=== PATIENT | female | born 1940 | race Caucasian/White ===

== ENCOUNTER 2017-03-24 06:25 | Day surgery (SDC) | payer MEDICARE ==
[2017-03-24] MEDS ORDERED: fentaNYL 100 MCG/2 ML SDV ONE (06:58)
[2017-03-24] MEDS ORDERED: Propofol 200 MG/20 ML SDV ONE ×2 (06:58→08:16)
[2017-03-24] MEDS ORDERED: Dextrose 5%-Lactated Ringers 1,000 ML IV SCH (07:00)
[2017-03-24] MEDS ORDERED: Glycopyrrolate 0.2 MG/ML 2 ML SYRINGE IVPUSH ONE (07:30)
[2017-03-24] MEDS ORDERED: Midazolam 1 MG/ML 2 ML SDV ONE (07:51)
[2017-03-24] MEDS ORDERED: Triamcinolone Acetonide 40 MG/ML 1 ML MDV INJECT PRN (09:46)
[2017-03-24] MEDS ORDERED: Lidocaine 1% 20 ML MDV INJECT ONE (09:46)
[2017-03-24] MEDS ORDERED: Ropivacaine 0.5% 5 MG/ML 30 ML SDV INJECT ONE (09:47)
[2017-03-24] MEDS ORDERED: Barium Sulfate 105% w/v Susp 1,900 ML Bottle PO ONE ×2 (10:34→10:51)
[2017-03-24 11:37] VITALS: BP 159/85
--- NOTE | 2017-03-24 11:55 | CR ---
Barium Enema Comp HISTORY: Incomplete colonoscopy. COMPARISON: None FINDINGS: Very redundant colon. No evidence for persistent narrowing. No extrinsic mass effect seen. Small amount of retained stool. Right colon was difficult to opacify with barium this is partially opacified however normal in caliber. Impression: Very redundant colon with small amounts of retained stool. No persistent narrowing or acute abnormal ity seen.
--- NOTE | 2017-03-26 11:02 | OR ---
DATE OF PROCEDURE: 03/24/2017 PREOPERATIVE DIAGNOSES: 1. Upper abdominal pain. 2. History of colon carcinoma status post right colectomy. POSTOPERATIVE DIAGNOSES: 1. Normal upper GI endoscopic exam status post jejunoileal bypass. 2. Normal colonic examination to 40 cm with the colon being extremely tortuous preventing further advancement of the colonoscope beyond 40 cm. OPERATIVE PROCEDURE: Esophagogastroduodenoscopy with; 1. Biopsies of gastric pouch for CLOtest (02342). 2. Flexible colonoscopy, incomplete (18345). ANESTHESIA: IV sedation. INDICATION FOR PROCEDURE: This is a 76-year-old female presenting with some upper abdominal discomfort. She also has a history of right colon carcinoma, and the plan is to proceed with an upper GI endoscopy to investigate those upper GI symptoms, as well as flexible colonoscopy with biopsies and/or polypectomies as indicated. Potential risks including bleeding and perforation were discussed, and the patient wishes to proceed. DETAILS OF PROCEDURE: The patient was taken to the operating room and placed in a left lateral decubitus position. IV sedation was administered, after which the upper GI endoscope was passed orally through the length of the esophagus, then in the stomach with retroflexion view of the fundus, and thereafter through the pyloric channel and into the proximal duodenum. Findings included normal hypopharynx, larynx, upper esophageal sphincter, and esophageal body at the EG junction. No significant hiatal hernia or inflammation were noted. The stomach itself was unremarkable with there being no significant redness. The pyloric channel and proximal duodenum were unremarkable. Beyond that, the patient had the duodenal to ileal anastomosis, which prevented any bile from getting into the more proximal GI tract. At this point, biopsies were obtained from the antrum to establish the patient's H. pylori status. Minimal bleeding from the biopsy site was seen, and the upper GI endoscope was then removed. Attention was then taken to the colonoscopy. Initial digital rectal exam was performed and was unremarkable. Colonoscope was then passed to roughly 40 cm. An extended amount of time was made to try to advance the scope beyond that, but it appeared to be too tortuous at that point to safely proceed. To that level, no abnormalities were noted, and the prep was fairly good. The scope was then withdrawn, and the procedure then concluded. The patient was taken to the recovery room in a satisfactory condition. Subsequent to this, the patient underwent a colon x-ray which showed extremely tortuous and elongated colon, but otherwise no specific additional pathology seen. The plan will be to see the patient back next Monday. She is, at this point, having severe problems with the constipation, having tried multiple agents over time and would be interested in surgical correction of this by means of a subtotal colectomy. We will obtain an abdominal x-ray at time of the appointment next Monday, i.e. in 5 days. This will help confirm, I think, that the patient has a slow transit constipation depending on how much of the colon x-ray contrast remains in the colon. Bairon Wilson MD /[id number]
== END 2017-03-24 12:00 | disposition home or self-care (01) ==
LOC: JP.SDS 06:25
PROVIDERS: ATTEND Surgery
DX: R10.10 Upper abdominal pain, unspecified (principal); Z98.84 Bariatric surgery status; K59.00 Constipation, unspecified; Q43.8 Other specified congenital malformations of intestine; Z85.038 Personal history of other malignant neoplasm of large intestine; M54.81 Occipital neuralgia; G43.909 Migraine, unspecified, not intractable, without status migrainosus; F33.9 Major depressive disorder, recurrent, unspecified; F11.20 Opioid dependence, uncomplicated; T40.2X5A Adverse effect of other opioids, initial encounter; E03.9 Hypothyroidism, unspecified; Z90.49 Acquired absence of other specified parts of digestive tract; M79.7 Fibromyalgia; M81.0 Age-related osteoporosis without current pathological fracture; Z85.820 Personal history of malignant melanoma of skin; R41.3 Other amnesia; R40.0 Somnolence; N20.0 Calculus of kidney; K80.20 Calculus of gallbladder without cholecystitis without obstruction; I51.89 Other ill-defined heart diseases; Z79.52 Long term (current) use of systemic steroids; Z79.899 Other long term (current) drug therapy
CPT/HCPCS: 43239; 45330; 74270; 87081; J2250; J2704; J3010; J7042

== ENCOUNTER 2017-08-22 09:40 | Inpatient (IN) | payer MEDICARE ==
[2017-08-24] MEDS ORDERED: cefOXitin 2 GM in Premix Bag 1 BAG IV ONE (10:15)
[2017-08-24] MEDS ORDERED: Albuterol/Ipratropium 3.0-0.5 MG/3 ML Neb Soln NEB ONE (10:15)
[2017-08-24] MEDS ORDERED: Gabapentin 100 MG Cap PO ONE (10:15)
[2017-08-24] MEDS ORDERED: Acetaminophen 500 MG Tab PO ONE (10:15)
[2017-08-24] MEDS ORDERED: Celecoxib 200 MG Cap PO ONE (10:15)
[2017-08-24] MEDS ORDERED: Dextrose 5%-Lactated Ringers 1,000 ML IV SCH (10:30)
[2017-08-24] MEDS ORDERED: Ropivacaine 33 ML, Dexamethasone 8 MG, EPINEPHrine 0.4 MG, Sodium Chloride 0.9% 44.6 ML NERVRT SCH ×4 (10:30)
[2017-08-24] MEDS ORDERED: methylPREDNISolone Sodium Succinate 125 MG/2 ML SDV IVPUSH ONE (10:40)
[2017-08-24] MEDS ORDERED: Naloxone 0.4 MG/ML SDV IVPUSH PRN ×2 (11:10→11:11)
[2017-08-24] MEDS ORDERED: HYDROmorphone/Normal Saline 15 MG/30 ML PCA IV PRN (11:11)
[2017-08-24] MEDS ORDERED: Ondansetron 4 MG/2 ML SDV ONE (11:14)
[2017-08-24] MEDS ORDERED: Dexamethasone 4 MG/ML SDV ONE (11:14)
[2017-08-24] MEDS ORDERED: Glycopyrrolate 0.2 MG/ML 5 ML MDV ONE (11:14)
[2017-08-24] MEDS ORDERED: Rocuronium 50 MG/5 ML Vial ONE (11:14)
[2017-08-24] MEDS ORDERED: Neostigmine Methylsulfate 1 MG/ML 5 ML Syringe ONE (11:14)
[2017-08-24] MEDS ORDERED: Propofol 200 MG/20 ML SDV ONE (11:14)
[2017-08-24] MEDS ORDERED: Succinylcholine 200 MG/10 ML MDV ONE (11:14)
[2017-08-24] MEDS ORDERED: fentaNYL 250 MCG/5 ML SDV ONE (11:14)
[2017-08-24] MEDS ORDERED: Meropenem 500 MG SDV ONE (11:50)
[2017-08-24] MEDS ORDERED: Bupivacaine 0.5%/EPINEPHrine 1:200,000 50 ML MDV ONE (11:51)
[2017-08-24] MEDS ORDERED: Sodium Chloride 0.9% 10 ML ONE (11:55)
[2017-08-24] MEDS ORDERED: fentaNYL 100 MCG/2 ML SDV ONE (11:55)
[2017-08-24] MEDS ORDERED: Naloxone 0.4 MG/ML SDV IV PRN (15:51)
[2017-08-24] MEDS ORDERED: diphenhydrAMINE 50 MG/ML SDV IVPUSH PRN (15:51)
[2017-08-24] MEDS ORDERED: Ondansetron 4 MG/2 ML SDV IVPUSH PRN (15:51)
[2017-08-24] MEDS: Pantoprazole 40 MG Vial IV SCH (17:11)
[2017-08-24] MEDS ORDERED: Coagulation Factor VIIa Recombinant (per MCG) 2 MG Vial IVPUSH ONE (17:30)
[2017-08-24] MEDS: Dextrose 5%-Lactated Ringers 1,000 ML IV SCH (17:31)
[2017-08-24] MEDS: methylPREDNISolone Sodium Succinate 125 MG/2 ML SDV IVPUSH SCH (18:03)
[2017-08-24] MEDS: cefOXitin 2 GM in Sodium Chloride 0.9% 50 ML IV SCH ×2 (18:04→23:40)
[2017-08-24] MEDS ORDERED: Coagulation Factor VIIa Recombinant (per MCG) 2 MG Vial IVPUSH STA (20:24)
[2017-08-24] MEDS ORDERED: Lactated Ringers 500 ML IV ONE (22:15)
[2017-08-25] MEDS ORDERED: Lactated Ringers 500 ML IV SCH (00:15)
[2017-08-25] MEDS: Dextrose 5%-Lactated Ringers 1,000 ML IV SCH ×3 (01:51→20:49)
[2017-08-25] MEDS: cefOXitin 2 GM in Sodium Chloride 0.9% 50 ML IV SCH ×2 (05:25→11:53)
[2017-08-25] MEDS: methylPREDNISolone Sodium Succinate 125 MG/2 ML SDV IVPUSH SCH (05:35)
[2017-08-25] MEDS: fentaNYL 2,500 MCG in Sodium Chloride 0.9% 200 ML EPIDUR SCH ×2 (07:50→12:05)
[2017-08-25] MEDS ORDERED: CLIMARA TOP SCH (09:00)
[2017-08-25] MEDS: Magnesium Sulfate/Water 2 GM in Premix Bag 1 BAG IV SCH ×3 (09:20→21:27)
[2017-08-25] MEDS ORDERED: Meperidine PF 50 MG/ML Syringe IM ONE ×2 (14:45→15:00)
[2017-08-25] MEDS ORDERED: hydrOXYzine HCl 100 MG/2 ML SDV IM ONE (14:45)
[2017-08-25] MEDS: Pantoprazole 40 MG Vial IV SCH (16:09)
[2017-08-25] MEDS: methylPREDNISolone Sodium Succinate 40 MG/1 ML SDV IVPUSH SCH (18:20)
[2017-08-26] MEDS: Magnesium Sulfate/Water 2 GM in Premix Bag 1 BAG IV SCH ×4 (03:49→21:03)
[2017-08-26] MEDS: Dextrose 5%-Lactated Ringers 1,000 ML IV SCH ×2 (04:57→13:33)
[2017-08-26] MEDS: methylPREDNISolone Sodium Succinate 40 MG/1 ML SDV IVPUSH SCH ×2 (06:10→17:33)
[2017-08-26] MEDS ORDERED: Ropivacaine 33 ML, Dexamethasone 8 MG, EPINEPHrine 0.4 MG, Sodium Chloride 0.9% 44.6 ML NERVRT SCH ×4 (07:00)
[2017-08-26] MEDS ORDERED: Bupivacaine 0.5% 50 ML MDV ONE (07:01)
[2017-08-26] MEDS ORDERED: Lidocaine 1% with EPINEPHrine 1:100,000 50 ML MDV ONE (07:01)
[2017-08-26] MEDS ORDERED: Meropenem 500 MG SDV ONE (07:01)
[2017-08-26] MEDS ORDERED: fentaNYL 100 MCG/2 ML SDV ONE (07:09)
[2017-08-26] MEDS ORDERED: Midazolam 1 MG/ML 2 ML SDV ONE (07:09)
[2017-08-26] MEDS ORDERED: Propofol 200 MG/20 ML SDV ONE (07:09)
[2017-08-26] MEDS: [UNRECOGNIZED DRUG - OTHER] TOP SCH (09:39)
[2017-08-26] MEDS: Furosemide 20 MG/2 ML VIAL IV SCH ×2 (12:30→19:53)
[2017-08-26] MEDS: Acetaminophen 325 MG Tab PO SCH ×2 (12:32→17:33)
[2017-08-26] MEDS: Celecoxib 200 MG Cap PO SCH (12:33)
[2017-08-26] MEDS: Bisacodyl 5 MG Tab PO SCH ×2 (12:33→20:00)
[2017-08-26] MEDS: Sennosides 8.6 MG Tab PO SCH ×2 (12:33→20:00)
[2017-08-26] MEDS: fentaNYL 2,500 MCG in Sodium Chloride 0.9% 200 ML EPIDUR SCH (13:34)
[2017-08-26] MEDS: Pantoprazole 40 MG Vial IV SCH (16:33)
[2017-08-27] MEDS: Acetaminophen 325 MG Tab PO SCH (00:15)
[2017-08-27] MEDS: Dextrose 5%-Lactated Ringers 1,000 ML IV SCH (01:57)
[2017-08-27] MEDS: Magnesium Sulfate/Water 2 GM in Premix Bag 1 BAG IV SCH ×4 (02:59→22:03)
[2017-08-27] MEDS: Acetaminophen/HYDROcodone 325-5 MG Tab PO PRN ×4 (05:25→19:41)
[2017-08-27] MEDS: methylPREDNISolone Sodium Succinate 40 MG/1 ML SDV IVPUSH SCH ×2 (05:50→19:57)
[2017-08-27] MEDS: Celecoxib 200 MG Cap PO SCH (08:40)
[2017-08-27] MEDS: Furosemide 20 MG/2 ML VIAL IV SCH ×2 (08:49→19:57)
[2017-08-27] MEDS: [UNRECOGNIZED DRUG - OTHER] TOP SCH (09:49)
[2017-08-27] MEDS: POTASSIUM PHOSPHATES IV SCH ×6 (09:50→15:49)
[2017-08-27] MEDS: WATER IV SCH ×6 (09:50→15:49)
[2017-08-27] MEDS: Sennosides 8.6 MG Tab PO SCH ×3 (09:50→21:01)
[2017-08-27] MEDS: DEXTROSE IV SCH ×6 (09:50→15:49)
[2017-08-27] MEDS: Pantoprazole 40 MG Tab.CR PO SCH (19:57)
[2017-08-28] MEDS: Acetaminophen/HYDROcodone 325-5 MG Tab PO PRN ×5 (00:20→21:32)
[2017-08-28] MEDS: Magnesium Sulfate/Water 2 GM in Premix Bag 1 BAG IV SCH (04:52)
[2017-08-28] MEDS: methylPREDNISolone Sodium Succinate 40 MG/1 ML SDV IVPUSH SCH (05:06)
[2017-08-28] MEDS: [UNRECOGNIZED DRUG - OTHER] TOP SCH (08:03)
[2017-08-28] MEDS: Celecoxib 200 MG Cap PO SCH (08:03)
[2017-08-28] MEDS: Sennosides 8.6 MG Tab PO SCH ×3 (08:04→20:08)
--- NOTE | 2017-08-28 08:29 | OR ---
DATE OF PROCEDURE: 08/26/2017 PREOPERATIVE DIAGNOSIS: Open abdominal incision. POSTOPERATIVE DIAGNOSIS: Open abdominal incision. PROCEDURE: Delayed primary closure of open abdominal incision. ANESTHESIA: IV sedation. INDICATION FOR PROCEDURE: The patient is status post subtotal colectomy, at which time the skin and subcutaneous tissue were felt to be at high risk for wound infection if they were closed primarily. Given this, the incisions were left open for a planned delayed primary closure at this time. Potential risks including bleeding and infection were reviewed, and the patient wishes to proceed. DETAILS OF PROCEDURE: The patient was taken to the operating room and placed in a supine position. After IV sedation was administered, using a continuous ultrasound, transverse abdominis plane blocks were placed bilaterally with the standard solution. These were placed more or less between the edge of ribs and anterior superior iliac spine on each side, providing coverage over the mid and lower abdomen where the incision was primarily located. Following this, the dressing was taken down. The incision was reinspected. The wound was then prepped and draped, anesthetized with 1% lidocaine mixed with Marcaine and irrigated with meropenem-containing saline solution. The incision was then closed with a deeper layer of 3-0 Vicryl stitch and a subdermal 4-0 Vicryl stitch and gurpreet for the skin. A 10- Portuguese Kendell-Pyle drain was then placed through the stab wound beneath the incision that was sutured with some 3-0 Vicryl stitch and dressing applied. The patient was taken to the recovery room in satisfactory condition. Bairon Wilson MD /[id number]
--- NOTE | 2017-08-28 08:38 | PN ---
DATE OF SERVICE: 08/27/2017 The patient has been afebrile with stable vital signs. No major problems were noted overnight. However, a little bit confused, did pull out her epidural catheter. She is on oral pain medication today, moving her bowels and we will begin a full-liquid diet, clamping the NG-tube for 5 hours and clamping for 1-hour [id number]. Labs show elevated BNP. We will give her some IV Lasix today and also low potassium and phosphate and those will be supplemented as well. Otherwise, maximize activity with pulmonary toilet. Bairon Wilson MD /[id number]
--- NOTE | 2017-08-28 11:20 | OR ---
DATE OF PROCEDURE: 08/24/2017 PREOPERATIVE DIAGNOSES: 1. Severe constipation, refractory to medical management associated with extreme megacolon. 2. Chronic cholecystitis and cholelithiasis. OPERATIVE PROCEDURE: Exploratory laparotomy with lysis of adhesions and, 1. Total abdominal colectomy with a small bowel to rectal anastomosis (03453). 2. Cholecystectomy (10687). 3. Placement of tube gastrostomy (708523). 4. Placement of Vicryl mesh to displace viscera from pelvic and abdominal wall to limit recurrent adhesion formation (37060). ANESTHESIA: General. ELECTRIC FORK OPERATOR: Lindsay Sales PA-C. INDICATIONS FOR PROCEDURE: This is a 76-year-old female presenting with a progressively worsening severe constipation/obstipation. Despite ongoing medical management, the patient at the time of an incomplete colonoscopy, recently had a colon x-ray which showed a massively tortuous and dilated colon diffusely. The patient was initially treated with some additional medical management such as Amitiza which transiently did help somewhat, but now presented with worsening symptoms that have been refractory to medical management. There is no evidence of any distal obstructing lesion as the recent colonoscopy did get well up into the sigmoid colon. The plan is to proceed with a subtotal colectomy with a small-bowel to rectal anastomosis. The patient is status post a jejunoileal bypass in the past, and she is aware that this could result in significant diarrhea or frequent loose bowel movements. We will plan to proceed with a tube gastrostomy as this procedure quite often results in a prolonged ileus due to the extensive retroperitoneal dissection. The patient also appears to have a symptomatic cholelithiasis and a cholecystectomy was undertaken as well. Potential risks of the procedure including bleeding, infection, leaks from various GI tract closures, possibility of problems with frequent loose bowel movements or disturbance in her nutritional status, along with possibility of cardiopulmonary or septic or hemorrhagic complications leading to were discussed, and the patient wishes to proceed. DETAILS OF THE PROCEDURE: The patient was taken to the operating room, placed in a supine position. After general endotracheal anesthesia was induced, the Palmer catheter was inserted. The abdomen was prepped and draped, and the patient had a nasogastric tube placed. A midline incision which eventually extended from roughly a handsbreadths below the xiphoid to a handsbreadth above the pubis was made and carried down through the full-thickness of the abdominal wall. Upon entering the peritoneal cavity, general exploration was undertaken. The patient was noted to have a very tiny caliber small bowel and the area was then bypassed by the jejunoileal bypass. The remaining small bowel was quite thickened and hypertrophied in appearance, consistent with a long-standing jejunoileal bypass status. The gallbladder was distended and was subsequently noted to contain some small stones. At that point, the decision was made to proceed with the total abdominal colectomy with a small bowel to the rectum anastomosis as planned. Initially, the cholecystectomy was performed. The cystohepatic triangle was identified and the cystic duct and cystic artery were then each individually isolated and then with a single stapler divided with BRITT vascular load and the remaining attachments of the gallbladder were then taken off with electrocautery and the specimen delivered from the field as noted above and was noted to contain some small black stones. At this point, the small bowel was immediately flushed with the previous ileocolic anastomosis, was divided, and the mid rectum, and also divided both with BRITT staplers. The peritoneal reflection of the descending colon as well as the attachments along the splenic flexure were then freed up with a combination of blunt and cautery dissection and the omentum was then divided off the transverse colon with Harmonic scalpel and cautery. At this point, the mesentery of the remainder of the abdominal colon was divided with a combination of vascular and mesenteric staple loads and the specimen consisting of the total abdominal colon and upper rectum was then delivered from the field. The small bowel to the rectal anastomosis was then accomplished with a [id number] enteroenterostomy with 2 internal firings of the Endo-BRITT navas loads, the common openings were then closed with purple load, the angles anastomosed, and mesenteric defect approximated with some 3-0 Vicryl stitch. This anastomosis was also reinforced with some fibrin sealant. The underlying mesenteric defect was confirmed to be adequately closed. At this point, attention was taken to the tube gastrostomy. Along the mid greater curvature of the stomach, a pursestring stitch of 3-0 Vicryl stitch was placed and in the center of that pursestring, a gastrotomy was placed. Through a stab wound in the left subcostal area, an 18-Bur[place]ian Palmer catheter was pulled through the abdominal wall and then placed into the lumen of the stomach and inflated with 10 mL of saline. The pursestring stitch was then tied up and this stitch was then continued initially to fix the gastrostomy up to the abdominal wall. Four additional sutures the stomach on the edge of the gastrostomy to the abdominal wall with Vicryl stitch were also then placed. At this point, no further problems noted. The abdomen was irrigated with antibiotic-containing saline solution. To limit recurrent adhesion formation, a 12-inch Vicryl mesh was then placed in the depths of the pelvis, up along the pelvic sidewall, and up against the abdominal wall. The midline fascia was then approximated with a #2 Vicryl stitch. The skin and subcutaneous tissue were felt to be at high risk for wound infection if a primary closure was undertaken. These were therefore packed open and a dressing applied. The patient was taken to the recovery room in satisfactory condition. [employer] assistant principal Lindsay Sales played an essential role in assisting in this case, helping to position the patient, retract structures as needed, as well as suturing and cutting sutures when indicated. Her presence improved the patient's safety and decreased operative time. Bairon Wilson MD /[id number]
[2017-08-28] MEDS ORDERED: Furosemide 20 MG/2 ML VIAL IV ONE (12:00)
[2017-08-28] MEDS ORDERED: Potassium Chloride 20 MEQ Tab.ER PO ONE (12:00)
[2017-08-28] MEDS: Pantoprazole 40 MG Tab.CR PO SCH (17:18)
[2017-08-28] MEDS ORDERED: predniSONE 5 MG Tab PO SCH (21:00)
[2017-08-29] MEDS: Acetaminophen/HYDROcodone 325-5 MG Tab PO PRN ×2 (04:41→10:04)
[2017-08-29 07:34] VITALS: BP 130/80
--- NOTE | 2017-08-29 08:20 | DISCH ---
ADMISSION DIAGNOSES: 1. Chronic cholecystitis and cholelithiasis. 2. Severe constipation, refractory to medical management. 3. SP Jamal-en-Y gastric bypass surgery, unspecified surgical malabsorption. 4. B12 deficiency. 5. Occipital neuralgia "treatment agreement.". 6. Minor migraine headache without aura. 7. Major depression disorder. 8. Hypothyroidism stage I colon cancer, resected. 9. Elevated carcinoembryonic antigen. 10.Pituitary adenoma. 11.Fibromyalgia. 12.Osteoporosis. 13.Degenerative joint disease. 14.History of melanoma. 15.Vitamin D deficiency. 16.Memory change. 17.Daytime somnolence. 18.Nephrolithiasis. 19.Mild diastolic dysfunction. 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 21.Copper deficiency. 22.Zinc deficiency. 23.Vitamin B complex deficiency. DISCHARGE DIAGNOSES: Exploratory laparotomy with lysis of adhesion, total colectomy with small bowel to rectal anastomosis, cholecystectomy, placement of tube gastrostomy, and placement of Vicryl mesh to displace small bowel for severe constipation refractory to medical management associated with extreme megacolon and chronic cholecystitis and cholelithiasis. Date of surgery, 08/24/2017, Bairon Wilson MD. Delayed primary closure for open incision on 08/26/2017. HISTORY: Monica Garza is a 76-year-old female with severe constipation, gallstones, and chronic cholecystitis. After preoperative evaluation and discussion of the possible risks and possible complications, she wished to proceed with surgical procedure. HOSPITAL COURSE: 1. Monica Garza had her surgery on 08/24/2017. She had no operative complications. On postop day #1, her IV was discontinued and she signed a consent for delayed primary closure for open incision on 08/26/2017. 2. On postop day 2, she had her delayed primary closure. On 08/27/2017, she was started on a full liquid diet. She had a loose bowel movement, it was checked for C diff. Gastrostomy tube was clamped. She received K-Phos as well as Lasix. On 08/28/2017, she had Lasix along with potassium and home care was set up. On 08/29/2017, the epidural was discontinued, her Palmer was discontinued. She was started on a full liquid diet. She received Lasix 20 mg IV with potassium 40 mEq and K-Phos 30 millimole. She tolerated that well. She was able to be discharged to home on 08/29/2017 with no complications. Vital signs were stable. Pain was well managed. Activity was good. PHYSICAL EXAMINATION: GENERAL: Monica Garza is a 76-year-old female. HEENT: Height is 5 feet 9 inches, weight is 138 pounds, BMI is 20, TPR 96.8, 97, 12, blood pressure 144/92. HEENT: Negative. NECK: Supple. HEART: Regular rate and rhythm. LUNGS: Clear. ABDOMEN: Dressing is dry and intact. Abdominal binder is on. EXTREMITIES: Without peripheral edema. DISPOSITION: Discharged to home with home health care. FOLLOWUP APPOINTMENT: On 09/01/2017 at 9:30 a.m. NEW PRESCRIPTIONS: 1. Covina 5/325 mg 1-2 oral q.4 hours p.r.n. pain, #40. 2. Celebrex 200 mg p.o. daily, #14. 3. She is to resume her home medications, vitamin D3 1000 international units daily. 4. Vitamin B12 1 mL IM every 3 weeks. 5. Vitamin B12 1000 mcg sublingual daily. 6. Vitamin D2 50,000 international units for 2 weeks. 7. Climara 0.06 mg topical weekly. 8. Ferrous sulfate 1.5 teaspoons oral daily. 9. Gabapentin 100 mg oral twice daily. 10.Levothyroxine 112 mcg oral daily. 11.Amitiza 24 mcg oral twice daily. 12.Magnesium oxide 400 mg oral daily. 13.Flintstones multivitamin chewable 1 twice daily. 14.Omeprazole 40 mg daily. 15.MiraLAX 17 g oral twice daily. 16.Potassium chloride 15 mL oral daily. 17.Promethazine 25 mg rectal every 6 hours p.r.n. nausea. 18.Vitamin B1 100 mg oral daily. 19.Zomig ZMT 2.5 mg oral as directed p.r.n. headache. 20.Prednisone 7.5 mg at bedtime. 21.Discontinue taking the hydrocodone/ibuprofen 7.5/200 while on the Covina. DISCHARGE DIET: Usual diet as tolerated. Drink 8 to 10 glasses of water a day. ACTIVITY: No lifting greater than 10 pounds for 6 weeks[address] Driving, do not drive while on pain medication. Shower/bathing, may shower. Notify provider if any fever, increased pain, nausea, or vomiting. Wound incision care, keep site clean and dry. Wear abdominal binder for 6 weeks and then as tolerated. SPECIAL INSTRUCTIONS: 1. Strip, empty, measure, and record IRENE drain 4 times a day and bring record of drainage to clinic appointment. 2. Keep area around gastrostomy tube clean and dry. 3. Use incentive spirometer 10 times every hour while awake for 2 weeks.
[2017-08-29] MEDS: Celecoxib 200 MG Cap PO SCH (08:47)
[2017-08-29] MEDS: Sennosides 8.6 MG Tab PO SCH (08:47)
[2017-08-29] MEDS: [UNRECOGNIZED DRUG - OTHER] TOP SCH (08:48)
--- NOTE | 2017-08-29 15:21 | PN ---
DATE OF SERVICE: 08/26/2017 The patient has been afebrile with stable vital signs. She had a brief period where the pain control was somewhat marginal yesterday, but this is improved and we will continue the epidural catheter after the closure for another day or two. She is going to have a somewhat more prolonged ileus. We will begin some bowel stimulation today with Dulcolax oral tablets and Senna Plus on a scheduled basis. We will also begin Tylenol and Celebrex today in anticipation of getting the epidural catheter out either tomorrow or on Monday. Her labs show no major problems other than the BNP has gone from relatively low number to around 1100. Given this, we will back down on the IV rate and give her some Lasix this morning and repeat a dose this evening as well. We will leave the epidural catheter in place. We will leave the Palmer catheter as she is likely to have problems with urinary retention; otherwise, delayed primary closure will be undertaken today. Potential risks of procedure including bleeding and infection were reviewed, and the patient wishes to proceed. Bairon Wilson MD /[id number]
--- NOTE | 2017-08-30 07:57 | PN ---
DATE OF SERVICE: 08/25/2017 The patient has been afebrile with stable vital signs, blood pressure is running a little bit lower, but I think it might be related to the epidural catheter. There is quite a bit of IRENE output, and there is some concern regarding bleeding. She did receive activated factor VII, but hemoglobin only dropped from 13 to 12, from preoperative levels to this morning. Clinically, she looks stable. Plan will be to maximize activity and work with pulmonary toilet. Leave the IV rate running faster until later in the day. Urine output is satisfactory. Magnesium is low, that will be supplemented, and we will move her Solu-Medrol dose down to 40 mg q.12 hours and add a Climara patch. Plan will be to proceed with a delayed primary closure of the abdominal incision tomorrow. We may or may not turn off the epidural catheter at that time. We will plan to repeat the tap block as well. Bairon Wilson MD /[id number]
--- NOTE | 2017-08-30 09:54 | PN ---
DATE OF SERVICE: 08/28/2017 The patient is not entirely steady enough, I think, to go home at this point, but probably will be ready tomorrow. Palmer catheter will come out. We will give her some additional Lasix and potassium today, IRENE teaching, set up home care, and probably home tomorrow. Bairon Wilson MD /[id number]
== END 2017-08-29 11:25 | disposition home health service (06) | DRG 327 ==
LOC: JP.SDS 08-24 09:16 → JP.MS 08-24 09:16 → EDSTATUS 08-24 12:00 → JP.2SS 08-24 15:00 → JP.MS 08-27 16:18
PROVIDERS: ADMIT Surgery; ATTEND Surgery
PROC: 0DTE0ZZ Resection of Large Intestine, Open Approach (ICD-10-PCS; principal; 2017-08-24)
PROC: 0DH60UZ Insertion of Feeding Device into Stomach, Open Approach (ICD-10-PCS; 2017-08-24)
PROC: 0FT40ZZ Resection of Gallbladder, Open Approach (ICD-10-PCS; 2017-08-24)
PROC: 3E0M05Z Introduction of Adhesion Barrier into Peritoneal Cavity, Open Approach (ICD-10-PCS; 2017-08-24)
PROC: 0WQF0ZZ Repair Abdominal Wall, Open Approach (ICD-10-PCS; 2017-08-26)
DX: K59.09 Other constipation (principal); K59.39 Other megacolon; K80.10 Calculus of gallbladder with chronic cholecystitis without obstruction; K91.2 Postsurgical malabsorption, not elsewhere classified; F19.20 Other psychoactive substance dependence, uncomplicated; Z48.1 Encounter for planned postprocedural wound closure; Z98.84 Bariatric surgery status; E83.42 Hypomagnesemia; Z85.038 Personal history of other malignant neoplasm of large intestine; E53.8 Deficiency of other specified B group vitamins; E55.9 Vitamin D deficiency, unspecified; M81.0 Age-related osteoporosis without current pathological fracture; G43.909 Migraine, unspecified, not intractable, without status migrainosus; Z85.820 Personal history of malignant melanoma of skin; Z98.0 Intestinal bypass and anastomosis status; Z79.52 Long term (current) use of systemic steroids; F32.9 Major depressive disorder, single episode, unspecified; Z79.891 Long term (current) use of opiate analgesic; E06.3 Autoimmune thyroiditis; E60 Dietary zinc deficiency
CPT/HCPCS: 36415; 80048; 80053; 83735; 83880; 84100; 84443; 85025; 85027; 86850; 86900; 86901; 87493; 88304; 88307; 94762; A9270-GY; C1781; C9113; J0131; J0171; J0330; J0694; J1100; J1940; J2175; J2185; J2250; J2405; J2704; J2710; J2795; J2920; J2930; J3010; J3410; J3475; J3490; J7042; J7050; J7060; J7189; J7620

== ENCOUNTER 2017-10-04 12:15 | Emergency (ER) | payer MEDICARE ==
[2017-10-04] MEDS ORDERED: Sodium Chloride 0.9% 10 ML Syringe FLUSH PRN (13:26)
--- NOTE | 2017-10-04 14:46 | CR ---
Chest 2V HISTORY: Cough, shortness of breath. COMPARISON: None FINDINGS: Hyperinflation. Cardiac size and pulmonary vessels are normal. Slightly rotated film. No fo janusz infiltrates or effusions. Impression: COPD changes. No acute infiltrates.
[2017-10-04] MEDS ORDERED: Albuterol 0.083% 2.5 MG/3 ML Neb Soln NEB ONE (15:06)
[2017-10-04] MEDS: Sodium Chloride 0.9% 1,000 ML IV SCH ×2 (15:38→17:02)
[2017-10-04] MEDS ORDERED: Sodium Chloride 0.9% 1,000 ML IV ONE (17:16)
--- NOTE | 2017-10-04 18:31 | EDM.PDOC ---
ED HPI GENERAL MEDICAL PROBLEM - General Chief Complaint: Respiratory Problem Stated Complaint: MEDICAL VIA AMBULANCE Time Seen by Provider: 10/04/17 13:03 Source of Information: Reports: Patient History Limitations: Reports: No Limitations - History of Present Illness INITIAL COMMENTS - FREE TEXT/NARRATIVE: This patient comes in with a cough productive of green sputum which is been going on since yesterday. She thinks she is dehydrated. She had a recent small bowel obstruction and now has short gut so she has chronic diarrhea. She thinks she is probably dehydrated. She has been nauseated but not vomiting. She denies any fever she feels chills and occasional sweats. She did not get a flu shot this year. Her records show a history of COPD but the patient says she's never been treated for it - Related Data Allergies Allergy/AdvReac Type Severity Reaction Status Date / Time food Allergy Cannot Uncoded 10/04/17 12:42 Remember Home Meds: Home Meds Cholecalciferol (Vitamin D3) [Vitamin D3] 1,000 unit PO DAILY 03/24/15 [History] Cyanocobalamin (Vitamin B-12) [Cyanocobalamin Injection] 1 ml IM .[id number] [History] Ergocalciferol (Vitamin D2) [Vitamin D2] 50,000 unit PO .2XWEEK 03/24/15 [ History] Estradiol [Climara] 0.06 mg TOP WEEKLY 03/24/15 [History] Ferrous Sulfate 1.5 tsp PO DAILY 03/24/15 [History] Levothyroxine 112 mcg PO DAILY 03/24/15 [History] Multivitamin [Flintstones] 1 tab PO BID 03/24/15 [History] Multivitamin/Ferrous Gluconate [Multi-Delyn with Iron Liquid] 20 ml PO DAILY [History] Omeprazole 40 mg PO DAILY 03/24/15 [History] Potassium Chloride 15 ml PO DAILY 03/24/15 [History] Thiamine [Vitamin B-1] 100 mg PO DAILY 03/24/15 [History] ZOLMitriptan [Zomig ZMT] 5 mg PO ASDIRECTED PRN 03/24/15 [History] Cyanocobalamin (Vitamin B-12) [Vitamin B-12] 1,000 mcg SL DAILY 03/22/17 [ History] Promethazine [Phenadoz] 25 mg RECTAL Q6H PRN 03/22/17 [History] predniSONE [Prednisone] 7.5 mg PO BEDTIME 03/22/17 [History] Acetaminophen/HYDROcodone [[place] 325-5 MG] 1 - 2 tab PO Q4H PRN #40 tablet 08/29 [Rx] Celecoxib [CeleBREX] 200 mg PO DAILY #14 cap 08/29/17 [Rx] Diphenoxylate HCl/Atropine [Lomotil Tablet] 1 each PO ASDIRECTED 10/04/17 [ History] HYDROcodone/Ibuprofen [Vicoprofen] 1 tab PO Q8H PRN 10/04/17 [History] Prochlorperazine [Compazine] 1 tab PO Q6HR PRN 10/04/17 [History] Past Medical History HEENT History: Reports: Cataract, Hard of Hearing, Impaired Vision, Other (See Below) Other HEENT History: tinnitus left ear, menneires disease Cardiovascular History: Reports: Afib, [place] Respiratory History: Reports: Other (See Below) Other Respiratory History: unknown lung problems for albuterol Pt stopped Gastrointestinal History: Reports: Celiac Disease, Cholelithiasis, Chronic Constipation, Chronic Diarrhea, Colon Polyp, GERD, Hemorrhoids, Hepatitis, Irritable Bowel Syndrome, Other (See Below) Other Gastrointestinal History: internal rectal restriction Genitourinary History: Reports: Renal Calculus 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: Musculoskeletal History: Reports: Back Pain, Chronic, Fracture, Fibromyalgia, Neck Pain, Chronic, Osteoarthritis Other Musculoskeletal History: degenerative disc disease, fractured left small finger, fractured right foot, chronic neck and shoulder pain Neurological History: Reports: Concussion, Head Trauma, Migraines, Vertigo, Other (See Below) Other Neuro History: Mineres Psychiatric History: Reports: Anxiety, Depression, PTSD, Other (See Below) Other Psychiatric History: 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 Endocrine/Metabolic History: Reports: Hypothyroidism, Osteopenia, Vitamin D Deficiency, Other (See Below) Other Endocrine/Metabolic History: Isidro disease Hematologic History: Reports: Anemia, B12 Deficiency, Folic Acid, Iron Deficiency Immunologic History: Reports: None Oncologic (Cancer) History: Reports: Colon, Malignant Melanoma Dermatologic History: Reports: Melanoma Other Dermatologic History: skin CA 2005 - Infectious Disease History Infectious Disease History: Reports: Chicken Pox, Hepatitis non A,B,C, Measles, Mumps, Shingles - Past Surgical History HEENT Surgical History: Reports: Cataract Surgery, Tonsillectomy, Other (See Below) Other HEENT Surgeries/Procedures: eye lenses implants GI Surgical History: Reports: Appendectomy, Bariatric Procedure, Colon, Colonoscopy, EGD, Other (See Below) Other GI Surgeries/Procedures: surgical procedure x 5 to remove excess lining of rectum, hemorrhoidectomy, panniculectomy, colon resection Female Surgical History: Reports: Breast Biopsy, Cystoscopy, Hysterectomy, Kidney stone extraction, Tubal Ligation, Other (See Below) Other Female Surgeries/Procedures: bilat breast cysts removed Neurological Surgical History: Reports: C-Spine, Other (See Below) Other Neurological Surgeries/Procedures: fusion C5-C6, Chiari I surgery plate and screws Musculoskeletal Surgical History: Reports: Carpal Tunnel Dermatological Surgical History: Reports: Skin Biopsy Social & Family History - Family History Family Medical History: Noncontributory - Tobacco Use Smoking Status *Q: Never Smoker Years of Tobacco use: 15 Used Tobacco, but Quit: Yes Month Tobacco Last Used: 09/2004 Second Hand Smoke Exposure: No - Caffeine Use Caffeine Use: Reports: Coffee - Recreational Drug Use Recreational Drug Use: No ED ROS GENERAL - Review of Systems Review Of Systems: See Below Constitutional: Reports: Chills, Malaise, Weakness. Denies: Fever HEENT: Reports: No Symptoms Respiratory: Reports: Cough, Sputum (Green) Cardiovascular: Reports: No Symptoms Endocrine: Reports: No Symptoms GI/Abdominal: Reports: Diarrhea : Reports: No Symptoms Musculoskeletal: Reports: No Symptoms Skin: Reports: No Symptoms Neurological: Reports: No Symptoms Psychiatric: Reports: No Symptoms ED EXAM, GENERAL - Physical Exam Exam: See Below Exam Limited By: No Limitations General Appearance: Alert, Mild Distress, Thin Eye Exam: Bilateral Eye: Normal Inspection Ears: Normal External Exam Throat/Mouth: Normal Inspection Head: Atraumatic Neck: Normal Inspection Respiratory/Chest: Lungs Clear, Other GI/Abdominal: Non-Tender Back Exam: Normal Inspection Extremities: Normal Inspection Neurological: Alert, Oriented Psychiatric: Normal Affect Skin Exam: Warm, Dry Course - Vital Signs Last Recorded V/S: Last Vital Signs Temp 36.0 C 10/04/17 12:40 Pulse 89 10/04/17 15:45 Resp 16 10/04/17 15:45 BP 127/66 10/04/17 15:45 Pulse Ox 96 10/04/17 15:45 - Orders/Labs/Meds Orders: Active Orders 24 hr Category Date Time Status EKG Documentation Completion [RC] ASDIRECTED Care 10/04/17 13:26 Active RT Aerosol Therapy [RC] ASDIRECTED Care 10/04/17 15:07 Active CULTURE RESPIRATORY + SMEAR [RM] Stat Lab 10/04/17 16:36 Results Sodium Chloride 0.9% [Normal Saline] 1,000 ml Med 10/04/17 15:15 Active IV ASDIRECTED Sodium Chloride 0.9% [Saline Flush] Med 10/04/17 13:26 Active 10 ml FLUSH ASDIRECTED PRN Saline Lock Insert [OM.PC] Urgent Oth 10/04/17 13:25 Ordered EKG 12 Lead [EK] Urgent Ther 10/04/17 13:25 Ordered Medication Orders Sodium Chloride (Normal Saline) 1,000 mls @ 999 mls/hr IV ASDIRECTED PREET Last Admin: 10/04/17 17:02 Dose: 999 mls/hr Infusion: 10/04/17 16:39 Dose: 999 mls/hr Admin: 10/04/17 15:38 Dose: 999 mls/hr Sodium Chloride (Saline Flush) 10 ml FLUSH ASDIRECTED PRN PRN Reason: Keep Vein Open Last Admin: 10/04/17 13:46 Dose: 10 ml Labs: Laboratory Tests 10/04/17 10/04/17 10/04/17 Range/Units 13:39 13:39 13:39 WBC 10.6 (4.5-11.0) K/uL RBC 4.35 (3.30-5.50) M/uL Hgb 13.3 (12.0-15.0) g/dL Hct 41.4 (36.0-48.0) % MCV 95 (80-98) fL MCH 31 (27-31) pg MCHC 32 (32-36) % Plt Count 462 H (150-400) K/uL Neut % (Auto) 62 (36-66) % Lymph % (Auto) 29 (24-44) % [place] % (Auto) 9 H (2-6) % Eos % (Auto) 0 L (2-4) % Baso % (Auto) 0 (0-1) % Sodium 136 L (140-148) mmol/L Potassium 3.4 L (3.6-5.2) mmol/L Chloride 97 L (100-108) mmol/L Carbon Dioxide 32 (21-32) mmol/L Anion Gap 10.4 (5.0-14.0) mmol/L BUN 9 (7-18) mg/dL Creatinine 0.8 (0.6-1.0) mg/dL Est Cr Clr Drug Dosing 54.39 mL/min Estimated GFR (MDRD) > 60 (>60) Glucose 115 H (74-106) mg/dL Calcium 9.0 (8.5-10.1) mg/dL Total Bilirubin 0.3 (0.2-1.0) mg/dL AST 27 (15-37) U/L ALT 28 (12-78) U/L Alkaline Phosphatase 93 (46-116) U/L Troponin I < 0.017 (0.000-0.056) ng/mL NT-Pro-B Natriuret Pep 244 (5-450) pg/mL Total Protein 6.4 (6.4-8.2) g/dL Albumin 2.9 L (3.4-5.0) g/dL Globulin 3.5 (2.3-3.5) g/dL Albumin/Globulin Ratio 0.8 L (1.2-2.2) Meds: Medications Generic Name Dose Route Start Last Admin Trade Name Freq PRN Reason Stop Dose Admin Sodium Chloride 1,000 mls @ 999 mls/hr 10/04/17 15:15 10/04/17 17:02 Normal Saline IV 999 mls/hr ASDIRECTED PREET Administration Sodium Chloride 10 ml 10/04/17 13:26 10/04/17 13:46 Saline Flush FLUSH 10 ml ASDIRECTED PRN Administration Keep Vein Open Discontinued Medications Generic Name Dose Route Start Last Admin Trade Name Freq PRN Reason Stop Dose Admin Albuterol 2.5 mg 10/04/17 15:06 10/04/17 15:36 Proventil Neb Soln NEB 10/04/17 15:07 2.5 mg ONETIME ONE Administration Sodium Chloride 1,000 mls @ 999 mls/hr 10/04/17 17:16 10/04/17 17:05 Normal Saline IV 10/04/17 18:16 999 mls/hr .BOLUS ONE Administration - Radiology Interpretation Free Text/Narrative:: Chest x-ray shows COPD changes - Re-Assessments/Exams Free Text/Narrative Re-Assessment/Exam: 10/04/17 18:28 Patient received IV normal saline 2 L. She said she feels much better afterwards. 10/04/17 18:28 All labs reviewed on this patient is nothing acute seen. She did receive an albuterol nebulizer treatment and it's not certain if that really helped her or not. Departure - Departure Time of Disposition: 18:29 Disposition: Home, Self-Care 01 Condition: Fair Clinical Impression: Chronic diarrhea, Dehydration, Acute bronchitis - Discharge Information Referrals: Elizabeth Thorne PA [Primary Care Provider] - Additional Instructions: Take azithromycin as directed. You'll take 2 tablets tonight and then 1 tablet daily until finished. Be sure to drink plenty of liquids. Follow-up with your doctor in a few days. Return to the ER at any time if needed - My Orders Last 24 Hours: My Active Orders 10/04/17 13:25 Saline Lock Insert [OM.PC] Urgent EKG 12 Lead [EK] Urgent 10/04/17 13:26 EKG Documentation Completion [RC] ASDIRECTED Sodium Chloride 0.9% [Saline Flush] 10 ml FLUSH ASDIRECTED PRN 10/04/17 15:07 RT Aerosol Therapy [RC] ASDIRECTED 10/04/17 15:15 Sodium Chloride 0.9% [Normal Saline] 1,000 ml IV ASDIRECTED 10/04/17 16:36 CULTURE RESPIRATORY + SMEAR [RM] Stat - Assessment/Plan Last 24 Hours: My Active Orders 10/04/17 13:25 Saline Lock Insert [OM.PC] Urgent EKG 12 Lead [EK] Urgent 10/04/17 13:26 EKG Documentation Completion [RC] ASDIRECTED Sodium Chloride 0.9% [Saline Flush] 10 ml FLUSH ASDIRECTED PRN 10/04/17 15:07 RT Aerosol Therapy [RC] ASDIRECTED 10/04/17 15:15 Sodium Chloride 0.9% [Normal Saline] 1,000 ml IV ASDIRECTED 10/04/17 16:36 CULTURE RESPIRATORY + SMEAR [RM] Stat
[2017-10-04 20:00] VITALS: BP 128/61
== END 2017-10-04 19:30 | disposition home or self-care (01) ==
LOC: JP.ED 12:15
DX: E86.0 Dehydration (principal); J20.9 Acute bronchitis, unspecified; R19.7 Diarrhea, unspecified; Z79.899 Other long term (current) drug therapy
CPT/HCPCS: 36415; 71046; 80053; 83880; 84484; 85025; 87070; 87205; 87804; 93005; 94640; 96360; 96361; 99284; J7040; J7050; 93010; J7030

== ENCOUNTER 2018-01-03 17:06 | Inpatient (IN) | payer MEDICARE ==
--- NOTE | 2018-01-03 18:24 | EDM.PDOC ---
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 sudden onset of difficulty breathing Upper Back Pain Score (Numeric/FACES): 8 - Related Data Allergies Allergy/AdvReac Type Severity Reaction Status Date / Time food Allergy Cannot Uncoded 01/03/18 17:22 Remember Home Meds: Home Meds Cholecalciferol (Vitamin D3) [Vitamin D3] 1,000 unit PO DAILY 03/24/15 [History] Cyanocobalamin (Vitamin B-12) [Cyanocobalamin Injection] 1 ml IM .[id number] [History] Ergocalciferol (Vitamin D2) [Vitamin D2] 50,000 unit PO .2XWEEK 03/24/15 [ History] Estradiol [Climara] 0.06 mg TOP WEEKLY 03/24/15 [History] Ferrous Sulfate 1.5 tsp PO DAILY 03/24/15 [History] Levothyroxine 112 mcg PO DAILY 03/24/15 [History] Multivitamin [Flintstones] 1 tab PO BID 03/24/15 [History] Multivitamin/Ferrous Gluconate [Multi-Delyn with Iron Liquid] 20 ml PO DAILY [History] Omeprazole 40 mg PO DAILY 03/24/15 [History] Potassium Chloride 15 ml PO DAILY 03/24/15 [History] Thiamine [Vitamin B-1] 100 mg PO DAILY 03/24/15 [History] ZOLMitriptan [Zomig ZMT] 5 mg PO ASDIRECTED PRN 03/24/15 [History] Cyanocobalamin (Vitamin B-12) [Vitamin B-12] 1,000 mcg SL DAILY 03/22/17 [ History] Promethazine [Phenadoz] 25 mg RECTAL Q6H PRN 03/22/17 [History] predniSONE [Prednisone] 7.5 mg PO BEDTIME 03/22/17 [History] HYDROcodone/Ibuprofen [Vicoprofen] 1 tab PO Q8H PRN 10/04/17 [History] Past Medical History HEENT History: Reports: Cataract, Hard of Hearing, Impaired Vision, Other (See Below) Other HEENT History: tinnitus left ear, menneires disease Cardiovascular History: Reports: Afib, [place] Respiratory History: Reports: Other (See Below) Other Respiratory History: unknown lung problems for albuterol Pt stopped Gastrointestinal History: Reports: Celiac Disease, Cholelithiasis, Chronic Constipation, Chronic Diarrhea, Colon Polyp, GERD, Hemorrhoids, Hepatitis, Irritable Bowel Syndrome, Other (See Below) Other Gastrointestinal History: internal rectal restriction Genitourinary History: Reports: Renal Calculus 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: Musculoskeletal History: Reports: Back Pain, Chronic, Fracture, Fibromyalgia, Neck Pain, Chronic, Osteoarthritis Other Musculoskeletal History: degenerative disc disease, fractured left small finger, fractured right foot, chronic neck and shoulder pain Neurological History: Reports: Concussion, Head Trauma, Migraines, Vertigo, Other (See Below) Other Neuro History: Mineres Psychiatric History: Reports: Anxiety, Depression, PTSD, Other (See Below) Other Psychiatric History: 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 Endocrine/Metabolic History: Reports: Hypothyroidism, Osteopenia, Vitamin D Deficiency, Other (See Below) Other Endocrine/Metabolic History: Isidro disease Hematologic History: Reports: Anemia, B12 Deficiency, Folic Acid, Iron Deficiency Immunologic History: Reports: None Oncologic (Cancer) History: Reports: Colon, Malignant Melanoma Dermatologic History: Reports: Melanoma Other Dermatologic History: skin CA 2005 - Infectious Disease History Infectious Disease History: Reports: Chicken Pox, Hepatitis non A,B,C, Measles, Mumps, Shingles - Past Surgical History HEENT Surgical History: Reports: Cataract Surgery, Tonsillectomy, Other (See Below) Other HEENT Surgeries/Procedures: eye lenses implants GI Surgical History: Reports: Appendectomy, Bariatric Procedure, Colon, Colonoscopy, EGD, Other (See Below) Other GI Surgeries/Procedures: surgical procedure x 5 to remove excess lining of rectum, hemorrhoidectomy, panniculectomy, colon resection Female Surgical History: Reports: Breast Biopsy, Cystoscopy, Hysterectomy, Kidney stone extraction, Tubal Ligation, Other (See Below) Other Female Surgeries/Procedures: bilat breast cysts removed Neurological Surgical History: Reports: C-Spine, Other (See Below) Other Neurological Surgeries/Procedures: fusion C5-C6, Chiari I surgery plate and screws Musculoskeletal Surgical History: Reports: Carpal Tunnel Dermatological Surgical History: Reports: Skin Biopsy Social & Family History - Family History Family Medical History: Noncontributory - Tobacco Use Smoking Status *Q: Never Smoker Years of Tobacco use: 15 Used Tobacco, but Quit: Yes Month/Year Tobacco Last Used: 09/2004 Second Hand Smoke Exposure: No - Caffeine Use Caffeine Use: Reports: Coffee - Recreational Drug Use Recreational Drug Use: No ED ROS GENERAL - Review of Systems Review Of Systems: See Below Constitutional: Reports: No Symptoms HEENT: Reports: No Symptoms Respiratory: Reports: Shortness of Breath. Denies: Cough, Sputum Cardiovascular: Reports: Dyspnea on Exertion. Denies: Chest Pain GI/Abdominal: Reports: No Symptoms : Reports: No Symptoms ED EXAM, GENERAL - Physical Exam Exam: See Below Free Text/Narrative:: General: Female in moderate respiratory distress using accessory muscles able speak in 2-3 word sentences, alert and oriented x3 HEENT: head is atraumatic normocephalic, eyes pupils equal round reactive to light, sclera clear no conjunctivitis appreciated. Ears tympanic membranes clear and ha landmarks and light reflex are present bilaterally canals are clear. Nose no septal deviation, nares are clear, no blood present. Mouth mucosa is moist and pink no erythema or exudate noted in soft palate, tongue is midline uvula is midline , dentition is intact. Neck: Supple no thyromegaly no tracheal deviation. Nodes: Cervical nodes subclavicular nodes nontender no palpable lymphadenopathy noted. Lungs: Distant breath sounds both lung cruz CV: Regular rate and rhythm S1 and S2 appreciated no murmurs rubs or gallops noted. Abdomen: Soft, nontender, no palpable masses or organomegaly appreciated, no distention no guarding bowel sounds are present, Neuro: Cranial nerves II through XII grossly intact Skin: Warm and dry, intact Extremities: No lower extremity edema appreciated . Course - Vital Signs Last Recorded V/S: Last Vital Signs Temp 97 F 01/03/18 17:19 Pulse 104 H 01/03/18 18:50 Resp 20 01/03/18 18:50 BP 161/95 H 01/03/18 18:50 Pulse Ox 96 01/03/18 18:50 - Orders/Labs/Meds Orders: Active Orders 24 hr Category Date Time Status Chest 2V [CR] Stat Exams 01/03/18 17:49 Taken Labs: Laboratory Tests 01/03/18 01/03/18 Range/Units 18:18 18:18 WBC 11.9 H (4.5-11.0) K/uL RBC 4.50 (3.30-5.50) M/uL Hgb 13.4 (12.0-15.0) g/dL Hct 43.0 (36.0-48.0) % MCV 96 (80-98) fL MCH 30 (27-31) pg MCHC 31 L (32-36) % Plt Count 357 (150-400) K/uL Neut % (Auto) 66 (36-66) % Lymph % (Auto) 23 L (24-44) % [place] % (Auto) 9 H (2-6) % Eos % (Auto) 2 (2-4) % Baso % (Auto) 0 (0-1) % Sodium 143 (140-148) mmol/L Potassium 4.7 (3.6-5.2) mmol/L Chloride 106 (100-108) mmol/L Carbon Dioxide 30 (21-32) mmol/L Anion Gap 6.6 (5.0-14.0) mmol/L BUN 14 D (7-18) mg/dL Creatinine 0.9 (0.6-1.0) mg/dL Est Cr Clr Drug Dosing 47.22 mL/min Estimated GFR (MDRD) > 60 (>60) Glucose 116 H (74-106) mg/dL Calcium 8.8 (8.5-10.1) mg/dL Total Bilirubin 0.3 (0.2-1.0) mg/dL AST 29 (15-37) U/L ALT 31 (12-78) U/L Alkaline Phosphatase 113 (46-116) U/L Total Protein 7.0 (6.4-8.2) g/dL Albumin 3.3 L (3.4-5.0) g/dL Globulin 3.7 H (2.3-3.5) g/dL Albumin/Globulin Ratio 0.9 L (1.2-2.2) Departure - Departure Time of Disposition: 19:17 Disposition: Admitted As Inpatient 67 Condition: Fair Clinical Impression: Pneumothorax on right - Discharge Information Referrals: Lindsay Sales PA-C [Primary Care Provider] - Forms: ED Department Discharge - Assessment/Plan Plan: Assessment Acuity = acute Site and laterality = pneumothorax right side complicated patient with underlying chronic obstructive pulmonary disease after recently undergoing| thoracic trigger point injections Etiology = suspicious for complication of medical procedure Manifestations = dyspnea Location of injury = Home Lab values = CBC, CMP unremarkable chest x-ray reveals a large pneumothorax on the right side Plan Called discussed case Dr. Ko who kindly agreed to come in the same care the patient in the emergency department for chest tube patient in admission This note was dictated using [employer] voice recognition software please call with any questions on syntax or jenny."
[2018-01-03] MEDS ORDERED: fentaNYL 100 MCG/2 ML SDV IVPUSH ONE (19:22)
[2018-01-03] MEDS ORDERED: Sodium Chloride 0.9% 1,000 ML IV SCH (19:45)
[2018-01-03] MEDS ORDERED: Lidocaine 1% with EPINEPHrine 1:100,000 50 ML MDV INJECT STA (19:46)
[2018-01-03] MEDS ORDERED: Zolpidem 5 MG Tab PO PRN (21:13)
[2018-01-03] MEDS ORDERED: LORazepam 2 MG/ML SDV IV PRN (21:13)
[2018-01-03] MEDS ORDERED: Albuterol/Ipratropium 3.0-0.5 MG/3 ML Neb Soln NEB PRN (21:13)
[2018-01-03] MEDS ORDERED: Naloxone 0.4 MG/ML SDV IVPUSH PRN (21:13)
[2018-01-03] MEDS ORDERED: Albuterol 0.083% 2.5 MG/3 ML Neb Soln NEB PRN (21:13)
[2018-01-03] MEDS ORDERED: Ondansetron 4 MG Tab.DIS PO PRN (21:13)
[2018-01-03] MEDS ORDERED: Melatonin 3 MG Tab PO PRN (21:13)
[2018-01-03] MEDS ORDERED: Docusate Sodium 100 MG Cap PO PRN (21:13)
[2018-01-03] MEDS ORDERED: Ondansetron 4 MG/2 ML SDV IV PRN (21:13)
[2018-01-03] MEDS: predniSONE 5 MG Tab PO SCH (21:41)
[2018-01-03] MEDS: HYDROmorphone/Normal Saline 15 MG/30 ML PCA IV PRN (21:46)
--- NOTE | 2018-01-03 22:44 | PCM.HP ---
H&P History of Present Illness - General Admit Problem/Dx: Admission Diagnosis/Problem Admission Diagnosis/Problem Pneumothorax on right Source of Information: Patient, Provider, RN History Limitations: Reports: No Limitations - History of Present Illness Initial Comments - Free Text/Narative: 77-year-old female presents emergency department today with sudden onset of shortness of breath, she does have a history of severe COPD underwent trigger point injections thoracic lumbar today approximately 2 hours prior while sitting in front of computers sudden onset of difficulty breathing. Imaging, chest x-ray reveals a right pneumothorax. Surgeon called, Dr. Maciel arrived immediately in the emergency room for chest tube insertion. Plan to admit to hospital for further care and treatment. Onset of Symptoms: Reports: Sudden Duration of Symptoms: Reports: Hour(s): Location: Reports: Chest Quality: Reports: Other (Severe shortness of breath) Severity: Severe Improves with: Reports: None Worsens with: Reports: Breathing Context: Reports: Other Associated Symptoms: Reports: Shortness of Breath Upper Back Pain Score (Numeric/FACES): 7 - Related Data Allergies/Adverse Reactions: Allergies Allergy/AdvReac Type Severity Reaction Status Date / Time food Allergy Cannot Uncoded 01/03/18 17:22 Remember Home Medications: Home Meds Cholecalciferol (Vitamin D3) [Vitamin D3] 1,000 unit PO DAILY 03/24/15 [History] Cyanocobalamin (Vitamin B-12) [Cyanocobalamin Injection] 1 ml IM .[id number] [History] Ergocalciferol (Vitamin D2) [Vitamin D2] 50,000 unit PO .2XWEEK 03/24/15 [ History] Estradiol [Climara] 0.06 mg TOP WEEKLY 03/24/15 [History] Ferrous Sulfate 1.5 tsp PO DAILY 03/24/15 [History] Levothyroxine 112 mcg PO DAILY 03/24/15 [History] Multivitamin [Flintstones] 1 tab PO BID 03/24/15 [History] Multivitamin/Ferrous Gluconate [Multi-Delyn with Iron Liquid] 20 ml PO DAILY [History] Omeprazole 40 mg PO DAILY 03/24/15 [History] Potassium Chloride 15 ml PO DAILY 03/24/15 [History] Thiamine [Vitamin B-1] 100 mg PO DAILY 03/24/15 [History] ZOLMitriptan [Zomig ZMT] 5 mg PO ASDIRECTED PRN 03/24/15 [History] Cyanocobalamin (Vitamin B-12) [Vitamin B-12] 1,000 mcg SL DAILY 03/22/17 [ History] Promethazine [Phenadoz] 25 mg RECTAL Q6H PRN 03/22/17 [History] predniSONE [Prednisone] 7.5 mg PO BEDTIME 03/22/17 [History] HYDROcodone/Ibuprofen [Vicoprofen] 1 tab PO Q8H PRN 10/04/17 [History] Past Medical History HEENT History: Reports: Cataract, Hard of Hearing, Impaired Vision, Other (See Below) Other HEENT History: tinnitus left ear, menneires disease Cardiovascular History: Reports: Afib, [place] Respiratory History: Reports: Other (See Below) Other Respiratory History: unknown lung problems for albuterol Pt stopped Gastrointestinal History: Reports: Celiac Disease, Chronic Diarrhea, Colon Polyp , GERD, Hemorrhoids, Hepatitis, Other (See Below) Other Gastrointestinal History: internal rectal restriction Genitourinary History: Reports: Renal Calculus DIRECTOR FIXED INCOME History: Reports: Musculoskeletal History: Reports: Back Pain, Chronic, Fracture, Fibromyalgia, Neck Pain, Chronic, Osteoarthritis Other Musculoskeletal History: degenerative disc disease, fractured left small finger, fractured right foot, chronic neck and shoulder pain Neurological History: Reports: Concussion, Head Trauma, Migraines, Vertigo, Other (See Below) Other Neuro History: Mineres Psychiatric History: Reports: Anxiety, Depression, PTSD, Other (See Below) Other Psychiatric History: 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 Endocrine/Metabolic History: Reports: Hypothyroidism, Osteopenia, Vitamin D Deficiency, Other (See Below) Other Endocrine/Metabolic History: Isidro disease Hematologic History: Reports: Anemia, B12 Deficiency, Folic Acid, Iron Deficiency Immunologic History: Reports: None Oncologic (Cancer) History: Reports: Colon, Malignant Melanoma Dermatologic History: Reports: Melanoma Other Dermatologic History: skin CA 2005 - Infectious Disease History Infectious Disease History: Reports: Chicken Pox, Hepatitis non A,B,C, Measles, Mumps, Shingles - Past Surgical History HEENT Surgical History: Reports: Cataract Surgery, Tonsillectomy, Other (See Below) Other HEENT Surgeries/Procedures: eye lenses implants GI Surgical History: Reports: Appendectomy, Bariatric Procedure, Colon, Colonoscopy, EGD, Other (See Below) Other GI Surgeries/Procedures: surgical procedure x 5 to remove excess lining of rectum, hemorrhoidectomy, panniculectomy, colon resection Female Surgical History: Reports: Breast Biopsy, Cystoscopy, Hysterectomy, Kidney stone extraction, Tubal Ligation, Other (See Below) Other Female Surgeries/Procedures: bilat breast cysts removed Neurological Surgical History: Reports: C-Spine, Other (See Below) Other Neurological Surgeries/Procedures: fusion C5-C6, Chiari I surgery plate and screws Musculoskeletal Surgical History: Reports: Carpal Tunnel Dermatological Surgical History: Reports: Skin Biopsy Social & Family History - Family History Family Medical History: Noncontributory - Tobacco Use Smoking Status *Q: Never Smoker Years of Tobacco use: 15 Used Tobacco, but Quit: Yes Month/Year Tobacco Last Used: 09/2004 Second Hand Smoke Exposure: No - Caffeine Use Caffeine Use: Reports: Coffee Caffeine Use Comment: 1 cups per day - Recreational Drug Use Recreational Drug Use: No - Living Situation & Occupation Living situation: Reports: ([facility], retired, 2 adult children, not currently involved with her children. Son lives in [place], and daughter lives in [place].) H&P Review of Systems - Review of Systems: Review Of Systems: See Below General: Reports: Other (Shortness of breath) HEENT: Reports: No Symptoms Pulmonary: Reports: Shortness of Breath, Pleuritic Chest Pain Cardiovascular: Reports: No Symptoms Gastrointestinal: Reports: No Symptoms Genitourinary: Reports: No Symptoms Musculoskeletal: Reports: Back Pain (Chronic back pain) Skin: Reports: No Symptoms Psychiatric: Reports: No Symptoms Neurological: Reports: No Symptoms Hematologic/Lymphatic: Reports: No Symptoms Immunologic: Reports: No Symptoms Exam - Exam Exam: See Below - Vital Signs Vital Signs: Last Vital Signs Temp 36.1 C 01/03/18 21:13 Pulse 104 H 01/03/18 21:13 Resp 16 01/03/18 21:13 BP 136/89 01/03/18 21:13 Pulse Ox 99 01/03/18 21:13 Weight: 56.654 kg - Exam Quality Assessment: Supplemental Oxygen General: Alert, Oriented, Cooperative, Mild Distress HEENT: PERRLA, Hearing Intact, Mucosa Moist & [place], Nares Patent, Normal Nasal Septum, Posterior Pharynx Clear, Conjunctiva Clear, EOMI, EACs Clear, TMs Clear Neck: Supple, Trachea Midline, 2 Lungs: Normal Respiratory Effort, Decreased Breath Sounds (Chest tube noted to right mid chest, surgical tape and place, red discharge noted in tubing.), Other (Breath sounds are absent in the upper lobes of the right chest chest tube is in place with adhesive surgical dressing. Left lung decreased air breath sounds but breath sounds are heard throughout the lung.) Cardiovascular: Regular Rate, Regular Rhythm, Normal S1, Normal S2 GI/Abdominal Exam: Normal Bowel Sounds, Soft, Non-Tender, Other (Multiple surgical scars noted to abdomen midline and low transverse) (Female) Exam: Deferred Rectal (Female) Exam: Deferred Back Exam: Normal Inspection, Full Range of Motion Extremities: Normal Inspection, Normal Range of Motion, Non-Tender, No Pedal Edema, Normal Capillary Refill Skin: Warm, Dry, Other (chest tube right chest) Neurological: Reflexes Equal Bilateral, Strength Equal Bilateral Neuro Extensive - Mental Status: Alert, Oriented x3, Normal Mood/Affect, Normal Cognition Neuro Extensive - Motor, Sensory, Reflexes: Normal Reflexes Psychiatric: Alert, Normal Affect, Normal Mood - Patient Data Lab Results Last 24 hrs: Laboratory Results - last 24 hr 01/03/18 01/03/18 Range/Units 18:18 18:18 WBC 11.9 H (4.5-11.0) K/uL RBC 4.50 (3.30-5.50) M/uL Hgb 13.4 (12.0-15.0) g/dL Hct 43.0 (36.0-48.0) % MCV 96 (80-98) fL MCH 30 (27-31) pg MCHC 31 L (32-36) % Plt Count 357 (150-400) K/uL Neut % (Auto) 66 (36-66) % Lymph % (Auto) 23 L (24-44) % [place] % (Auto) 9 H (2-6) % Eos % (Auto) 2 (2-4) % Baso % (Auto) 0 (0-1) % Sodium 143 (140-148) mmol/L Potassium 4.7 (3.6-5.2) mmol/L Chloride 106 (100-108) mmol/L Carbon Dioxide 30 (21-32) mmol/L Anion Gap 6.6 (5.0-14.0) mmol/L BUN 14 D (7-18) mg/dL Creatinine 0.9 (0.6-1.0) mg/dL Est Cr Clr Drug Dosing 47.22 mL/min Estimated GFR (MDRD) > 60 (>60) Glucose 116 H (74-106) mg/dL Calcium 8.8 (8.5-10.1) mg/dL Total Bilirubin 0.3 (0.2-1.0) mg/dL AST 29 (15-37) U/L ALT 31 (12-78) U/L Alkaline Phosphatase 113 (46-116) U/L Total Protein 7.0 (6.4-8.2) g/dL Albumin 3.3 L (3.4-5.0) g/dL Globulin 3.7 H (2.3-3.5) g/dL Albumin/Globulin Ratio 0.9 L (1.2-2.2) Result Diagrams: 01/03/18 18:18 01/03/18 18:18 - Problem List (1) Status post chest tube placement SNOMED Code(s): 235167677, 457079005 ICD Code: Z93.8 - OTHER ARTIFICIAL OPENING STATUS Status: Acute Priority : High Current Visit: Yes (2) Pneumothorax on right SNOMED Code(s): 465036258 ICD Code: J93.9 - PNEUMOTHORAX, UNSPECIFIED Status: Acute Priority: High Current Visit: Yes Problem List Initiated/Reviewed/Updated: Yes Orders Last 24hrs: Active Orders 24 hr Category Date Time Status Patient Status [ADT] Routine ADT 01/03/18 21:13 Active Cardiac Monitoring [RC] CONTINUOUS Care 01/03/18 21:13 Active Chest Tube Management [RC] ASDIRECTED Care 01/03/18 20:28 Active Communication Order [RC] STAT Care 01/03/18 21:13 Active Intake and Output [RC] QSHIFT Care 01/03/18 21:13 Active Notify Provider Consults [RC] ASDIRECTED Care 01/03/18 21:13 Active Notify Provider [RC] PRN Care 01/03/18 21:13 Active Oxygen Therapy [RC] CONTINUOUS Care 01/03/18 21:13 Active FOOD MANAGER Record [RC] PER UNIT ROUTINE Care 01/03/18 21:13 Active Pulse Oximetry [RC] CONTINUOUS Care 01/03/18 21:13 Active RT Aerosol Therapy [RC] ASDIRECTED Care 01/03/18 21:13 Active Up With Assistance [RC] ASDIRECTED Care 01/03/18 21:13 Active VTE/DVT Education [RC] Per Unit Routine Care 01/03/18 21:13 Active Vital Signs [RC] Q4H Care 01/03/18 21:13 Active Consult to Physician [CONS] Urgent Cons 01/03/18 21:13 Ordered Consult to Spiritual Care [CONS] Routine Cons 01/03/18 21:13 Active OT Evaluation and Treatment [CONS] Routine Cons 01/03/18 21:13 Active PT Evaluation and Treatment [CONS] Routine Cons 01/03/18 21:13 Active Respiratory Care Assess and Treatment [CONS] Routine Cons 01/03/18 21:13 Active Regular Diet [DIET] Diet 01/03/18 Dinner Active Chest 1V Frontal [CR] DAILY Exams 01/04/18 05:11 Ordered Chest 1V Frontal [CR] DAILY Exams 01/05/18 05:11 Ordered Chest 1V Frontal [CR] DAILY Exams 01/06/18 05:11 Ordered Chest 1V Frontal [CR] DAILY Exams 01/07/18 05:11 Ordered Chest 1V Frontal [CR] DAILY Exams 01/08/18 05:11 Ordered Chest 1V Frontal [CR] DAILY Exams 01/09/18 05:11 Ordered Chest 1V Frontal [CR] Stat Exams 01/03/18 19:24 Taken Chest 2V [CR] Stat Exams 01/03/18 17:49 Taken BASIC METABOLIC PANEL,BMP [CHEM] AM Lab 01/04/18 05:11 Ordered CBC WITH AUTO DIFF [HEME] AM Lab 01/04/18 05:11 Ordered Albuterol [Proventil Neb Soln] Med 01/03/18 21:13 Active 2.5 mg NEB Q4H PRN Albuterol/Ipratropium [DuoNeb 3.0-0.5 MG/3 ML] Med 01/03/18 21:13 Active 3 ml NEB QID PRN Docusate Sodium [Colace] Med 01/03/18 21:13 Active 100 mg PO BID PRN HYDROmorphone/Normal Saline [Dilaudid FOOD MANAGER 15 MG in NS Med 01/03/18 21:13 Active 30 ML] See Protocol IV ASDIRECTED PRN LORazepam [Ativan] Med 01/03/18 21:13 Active 1 mg IV Q6H PRN Lactated Ringers [Ringers, Lactated] 1,000 ml Med 01/03/18 21:13 Active IV ASDIRECTED Levothyroxine Med 01/04/18 09:00 Active 112 mcg PO DAILY Melatonin Med 01/03/18 21:13 Active 6 mg PO BEDTIME PRN Naloxone [Narcan] Med 01/03/18 21:13 Active 0.4 mg IVPUSH Q2M PRN Ondansetron [Zofran ODT] Med 01/03/18 21:13 Active 4 mg PO Q6H PRN Ondansetron [Zofran] Med 01/03/18 21:13 Active 4 mg IV Q4H PRN Pantoprazole [ProTONIX IV] Med 01/04/18 09:00 Active 40 mg IVPUSH DAILY Potassium Chloride [Potassium Chloride Solution] Med 01/04/18 09:00 Active 20 meq PO DAILY Sodium Chloride 0.9% [Normal Saline] 1,000 ml Med 01/03/18 19:45 Active IV ASDIRECTED Thiamine [Vitamin B-1] Med 01/04/18 09:00 Active 100 mg PO DAILY Zolpidem [Ambien] Med 01/03/18 21:13 Active 5 mg PO BEDTIME PRN predniSONE Med 01/03/18 21:13 Active 7.5 mg PO BEDTIME Medication Discontinuation Instructions [OM.PC] Stat Oth 01/03/18 21:13 Ordered Sequential Compression Device [OM.PC] Per Unit Routine Oth 01/03/18 21:13 Ordered Resuscitation Status Routine Resus Stat 01/03/18 20:44 Ordered Medication Orders Albuterol (Proventil Neb Soln) 2.5 mg NEB Q4H PRN PRN Reason: Shortness Of Breath/wheezing Albuterol/Ipratropium (Duoneb 3.0-0.5 Mg/3 Ml) 3 ml NEB QID PRN PRN Reason: Shortness Of Breath/wheezing Docusate Sodium (Colace) 100 mg PO BID PRN PRN Reason: Constipation Hydromorphone HCl (Dilaudid Manager [employer] 15 Mg In Ns 30 Ml) 0 mg IV ASDIRECTED PRN; Protocol PRN Reason: Pain Last Admin: 01/03/18 21:46 Dose: 15 mg Sodium Chloride (Normal Saline) 1,000 mls @ 250 mls/hr IV ASDIRECTED [facility] Last Admin: 01/03/18 19:49 Dose: 250 mls/hr Lactated Ringer's (Ringers, Lactated) 1,000 mls @ 125 mls/hr IV ASDIRECTED [facility] Levothyroxine Sodium (Levothyroxine) 112 mcg PO DAILY [facility] Lorazepam (Ativan) 1 mg IV Q6H PRN PRN Reason: Nausea/Vomiting Melatonin (Melatonin) 6 mg PO BEDTIME PRN PRN Reason: Insomnia Naloxone HCl (Narcan) 0.4 mg IVPUSH Q2M PRN PRN Reason: Respiratory Distress Ondansetron HCl (Zofran Odt) 4 mg PO Q6H PRN PRN Reason: Nausea able to take PO Ondansetron HCl (Zofran) 4 mg IV Q4H PRN PRN Reason: Nausea/Vomiting Pantoprazole Sodium (Protonix Iv) 40 mg IVPUSH DAILY [facility] Potassium Chloride (Potassium Chloride Solution) 20 meq PO DAILY [facility] Prednisone (Prednisone) 7.5 mg PO BEDTIME [facility] Last Admin: 01/03/18 21:41 Dose: Not Given Thiamine HCl (Vitamin B-1) 100 mg PO DAILY [facility] Zolpidem Tartrate (Ambien) 5 mg PO BEDTIME PRN PRN Reason: Sleep Assessment/Plan Comment:: ASSESSMENT / PLAN: Right pneumothorax with chest tube placement 77-year-old female presents emergency department today with sudden onset of shortness of breath, she does have a history of severe COPD underwent trigger point injections thoracic lumbar today approximately 2 hours prior while sitting in front of computers sudden onset of difficulty breathing Imaging, chest x-ray reveals a right pneumothorax. Surgeon called, Dr. Maciel arrived immediately in the emergency room for chest tube insertion. Plan to admit to hospital for further care and treatment. Pneumothorax right with chest tube -Admit to [address] [place] [address] for further monitoring -IV Fluids for rehydration NS at 125 mL per hour -albuterol nebulizer every 4 hours as needed for wheezing and cough -Duo neb every 6 hours as needed - FOOD MANAGER Dilaudid pump -Advise to notify nurses of any chest pain or other symptoms -And a.m. labs: CBC, BMP -Chest tube care per protocol -Consult to surgery/attending/Dr. Ko Maintenance issues -Orders home meds: On hold -Nutrition: regular diet, celiac protocol, no fat, no bladder, no spaces, no pepper -Palmer catheter not indicated at this time -DVT: SCD -PPI: IV Protonix 40mg daily -consult OT for discharge planning -consult PT for strengthening. -consult Spiritual -Consult to surgery CODE STATUS: FULL CODE Admission status: Admit to [address] [place] [address] Admission justification. This patient will be admitted for inpatient services and is medically appropriate meeting medical necessity for inpatient admission as outlined in my documentation. I reasonably expect the patient will require inpatient services that span. Time over 2 midnights. I reasonably expect this patient to be discharged or transferred within 96 hours after admission to the [facility]. Disposition; home Primary care provider: TIM Nelson Hospitalist: Dr. Yang
[2018-01-03] MEDS: Lactated Ringers 1,000 ML IV SCH (23:29)
--- NOTE | 2018-01-04 06:29 | PCM.SURGPN ---
- General Info Date of Service: 01/04/18 Date of Surgery/Procedure: 01/03/18 POD#: 1 Post-Op Diagnosis: Right pneumothorax Functional Status: Reports: Pain Controlled, Tolerating Diet, Urinating, Incentive Spirometry - Review of Systems General: Reports: No Symptoms HEENT: Reports: No Symptoms Pulmonary: Reports: No Symptoms Cardiovascular: Reports: No Symptoms Gastrointestinal: Reports: No Symptoms Genitourinary: Reports: No Symptoms Musculoskeletal: Reports: No Symptoms Skin: Reports: No Symptoms Neurological: Reports: No Symptoms Psychiatric: Reports: No Symptoms - Patient Data Vitals - Most Recent: Last Vital Signs Temp 96.3 F 01/04/18 05:06 Pulse 86 01/04/18 05:06 Resp 18 01/04/18 05:06 BP 108/63 01/04/18 05:06 Pulse Ox 91 L 01/04/18 05:06 Weight - Most Recent: 124 lb 14.4 oz I&O - Last 24 Hours: Intake & Output 01/03/18 01/03/18 01/04/18 14:59 22:59 06:59 Intake Total 240 737 Output Total 700 508 Balance -460 229 Lab Results Last 24 Hrs: Laboratory Results - last 24 hr 01/03/18 01/03/18 01/04/18 Range/Units 18:18 18:18 05:15 WBC 11.9 H 12.0 H (4.5-11.0) K/uL RBC 4.50 4.15 (3.30-5.50) M/uL Hgb 13.4 12.3 (12.0-15.0) g/dL Hct 43.0 39.9 (36.0-48.0) % MCV 96 96 (80-98) fL MCH 30 30 (27-31) pg MCHC 31 L 31 L (32-36) % Plt Count 357 332 (150-400) K/uL Neut % (Auto) 66 70 H (36-66) % Lymph % (Auto) 23 L 19 L (24-44) % [place] % (Auto) 9 H 9 H (2-6) % Eos % (Auto) 2 2 (2-4) % Baso % (Auto) 0 0 (0-1) % Sodium 143 (140-148) mmol/L Potassium 4.7 (3.6-5.2) mmol/L Chloride 106 (100-108) mmol/L Carbon Dioxide 30 (21-32) mmol/L Anion Gap 6.6 (5.0-14.0) mmol/L BUN 14 D (7-18) mg/dL Creatinine 0.9 (0.6-1.0) mg/dL Est Cr Clr Drug Dosing 47.22 mL/min Estimated GFR (MDRD) > 60 (>60) Glucose 116 H (74-106) mg/dL Calcium 8.8 (8.5-10.1) mg/dL Total Bilirubin 0.3 (0.2-1.0) mg/dL AST 29 (15-37) U/L ALT 31 (12-78) U/L Alkaline Phosphatase 113 (46-116) U/L Total Protein 7.0 (6.4-8.2) g/dL Albumin 3.3 L (3.4-5.0) g/dL Globulin 3.7 H (2.3-3.5) g/dL Albumin/Globulin Ratio 0.9 L (1.2-2.2) 01/04/18 Range/Units 05:15 WBC (4.5-11.0) K/uL RBC (3.30-5.50) M/uL Hgb (12.0-15.0) g/dL Hct (36.0-48.0) % MCV (80-98) fL MCH (27-31) pg MCHC (32-36) % Plt Count (150-400) K/uL Neut % (Auto) (36-66) % Lymph % (Auto) (24-44) % [place] % (Auto) (2-6) % Eos % (Auto) (2-4) % Baso % (Auto) (0-1) % Sodium 142 (140-148) mmol/L Potassium 4.0 (3.6-5.2) mmol/L Chloride 108 (100-108) mmol/L Carbon Dioxide 27 (21-32) mmol/L Anion Gap 6.9 (5.0-14.0) mmol/L BUN 10 (7-18) mg/dL Creatinine 0.8 (0.6-1.0) mg/dL Est Cr Clr Drug Dosing 53.51 mL/min Estimated GFR (MDRD) > 60 (>60) Glucose 126 H (74-106) mg/dL Calcium 8.5 (8.5-10.1) mg/dL Total Bilirubin (0.2-1.0) mg/dL AST (15-37) U/L ALT (12-78) U/L Alkaline Phosphatase (46-116) U/L Total Protein (6.4-8.2) g/dL Albumin (3.4-5.0) g/dL Globulin (2.3-3.5) g/dL Albumin/Globulin Ratio (1.2-2.2) Med Orders - Current: Current Medications Albuterol (Proventil Neb Soln) 2.5 mg NEB Q4H PRN PRN Reason: Shortness Of Breath/wheezing Albuterol/Ipratropium (Duoneb 3.0-0.5 Mg/3 Ml) 3 ml NEB QID PRN PRN Reason: Shortness Of Breath/wheezing Docusate Sodium (Colace) 100 mg PO BID PRN PRN Reason: Constipation Hydromorphone HCl (Dilaudid Fixed Income Analyst 15 Mg In Ns 30 Ml) 0 mg IV ASDIRECTED PRN; Protocol PRN Reason: Pain Last Admin: 01/03/18 21:46 Dose: 15 mg Sodium Chloride (Normal Saline) 1,000 mls @ 250 mls/hr IV ASDIRECTED PREET Last Admin: 01/03/18 19:49 Dose: 250 mls/hr Lactated Ringer's (Ringers, Lactated) 1,000 mls @ 125 mls/hr IV ASDIRECTED PREET Last Admin: 01/03/18 23:29 Dose: 125 mls/hr Levothyroxine Sodium (Levothyroxine) 112 mcg PO DAILY [facility] Lorazepam (Ativan) 1 mg IV Q6H PRN PRN Reason: Nausea/Vomiting Melatonin (Melatonin) 6 mg PO BEDTIME PRN PRN Reason: Insomnia Naloxone HCl (Narcan) 0.4 mg IVPUSH Q2M PRN PRN Reason: Respiratory Distress Ondansetron HCl (Zofran Odt) 4 mg PO Q6H PRN PRN Reason: Nausea able to take PO Ondansetron HCl (Zofran) 4 mg IV Q4H PRN PRN Reason: Nausea/Vomiting Pantoprazole Sodium (Protonix Iv) 40 mg IVPUSH DAILY [facility] Potassium Chloride (Potassium Chloride Solution) 20 meq PO DAILY [facility] Prednisone (Prednisone) 7.5 mg PO BEDTIME PREET Last Admin: 01/03/18 21:41 Dose: Not Given Thiamine HCl (Vitamin B-1) 100 mg PO DAILY PREET Zolpidem Tartrate (Ambien) 5 mg PO BEDTIME PRN PRN Reason: Sleep Discontinued Medications Fentanyl (Sublimaze) 50 mcg IVPUSH ONETIME ONE Stop: 01/03/18 19:23 Last Admin: 01/03/18 19:44 Dose: 50 mcg Lidocaine/Epinephrine (Xylocaine 1% With Epinephrine 1:100,000) 5 ml INJECT NOW STA Stop: 01/03/18 19:47 Last Admin: 01/03/18 19:49 Dose: 5 ml - Exam Wound/Incisions: No Drainage Quality Assessment: Supplemental Oxygen General: Alert, Oriented, Cooperative, No Acute Distress Lungs: Clear to Auscultation, Normal Respiratory Effort, Other (Distant) Cardiovascular: Regular Rate, Regular Rhythm GI/Abdominal Exam: Normal Bowel Sounds, Soft, Non-Tender Extremities: Normal Inspection Skin: Warm, Dry, Intact Neurological: No New Focal Deficit Psy/Mental Status: Alert, Normal Affect, Normal Mood - Problem List & Annotations (1) Pneumothorax on right SNOMED Code(s): 313613576 Code(s): J93.9 - PNEUMOTHORAX, UNSPECIFIED Status: Acute Priority: High Current Visit: Yes - Problem List Review Problem List Initiated/Reviewed/Updated: Yes - My Orders Last 24 Hours: Active Orders 24 hr Category Date Time Status Patient Status [ADT] Routine ADT 01/03/18 21:13 Active Cardiac Monitoring [RC] CONTINUOUS Care 01/03/18 21:13 Active Chest Tube Management [RC] ASDIRECTED Care 01/03/18 20:28 Active Chest Tube Management [RC] ASDIRECTED Care 01/04/18 06:26 Ordered Communication Order [RC] STAT Care 01/03/18 21:13 Active Intake and Output [RC] QSHIFT Care 01/03/18 21:13 Active Notify Provider Consults [RC] ASDIRECTED Care 01/03/18 21:13 Active Notify Provider [RC] PRN Care 01/03/18 21:13 Active Oxygen Therapy [RC] CONTINUOUS Care 01/03/18 21:13 Active LOCUM TENENS PSYCHIATRIST Record [RC] PER UNIT ROUTINE Care 01/03/18 21:13 Active Pulse Oximetry [RC] CONTINUOUS Care 01/03/18 21:13 Active RT Aerosol Therapy [RC] ASDIRECTED Care 01/03/18 21:13 Active Up With Assistance [RC] ASDIRECTED Care 01/03/18 21:13 Active VTE/DVT Education [RC] Per Unit Routine Care 01/03/18 21:13 Active Vital Signs [RC] Q4H Care 01/03/18 21:13 Active Consult to Physician [CONS] Urgent Cons 01/03/18 21:13 Ordered Consult to Spiritual Care [CONS] Routine Cons 01/03/18 21:13 Active OT Evaluation and Treatment [CONS] Routine Cons 01/03/18 21:13 Active PT Evaluation and Treatment [CONS] Routine Cons 01/03/18 21:13 Active Respiratory Care Assess and Treatment [CONS] Routine Cons 01/03/18 21:13 Active Regular Diet [DIET] Diet 01/03/18 Dinner Active Chest 1V Frontal [CR] DAILY Exams 01/04/18 05:11 Taken Chest 1V Frontal [CR] DAILY Exams 01/05/18 05:11 Ordered Chest 1V Frontal [CR] DAILY Exams 01/06/18 05:11 Ordered Chest 1V Frontal [CR] DAILY Exams 01/07/18 05:11 Ordered Chest 1V Frontal [CR] DAILY Exams 01/08/18 05:11 Ordered Chest 1V Frontal [CR] DAILY Exams 01/09/18 05:11 Ordered Chest 1V Frontal [CR] Stat Exams 01/03/18 19:24 Taken Chest 2V [CR] Stat Exams 01/03/18 17:49 Taken Albuterol [Proventil Neb Soln] Med 01/03/18 21:13 Active 2.5 mg NEB Q4H PRN Albuterol/Ipratropium [DuoNeb 3.0-0.5 MG/3 ML] Med 01/03/18 21:13 Active 3 ml NEB QID PRN Docusate Sodium [Colace] Med 01/03/18 21:13 Active 100 mg PO BID PRN HYDROmorphone/Normal Saline [Dilaudid LOCUM TENENS PSYCHIATRIST 15 MG in NS Med 01/03/18 21:13 Active 30 ML] See Protocol IV ASDIRECTED PRN LORazepam [Ativan] Med 01/03/18 21:13 Active 1 mg IV Q6H PRN Lactated Ringers [Ringers, Lactated] 1,000 ml Med 01/03/18 21:13 Active IV ASDIRECTED Levothyroxine Med 01/04/18 09:00 Active 112 mcg PO DAILY Melatonin Med 01/03/18 21:13 Active 6 mg PO BEDTIME PRN Naloxone [Narcan] Med 01/03/18 21:13 Active 0.4 mg IVPUSH Q2M PRN Ondansetron [Zofran ODT] Med 01/03/18 21:13 Active 4 mg PO Q6H PRN Ondansetron [Zofran] Med 01/03/18 21:13 Active 4 mg IV Q4H PRN Pantoprazole [ProTONIX IV] Med 01/04/18 09:00 Active 40 mg IVPUSH DAILY Potassium Chloride [Potassium Chloride Solution] Med 01/04/18 09:00 Active 20 meq PO DAILY Sodium Chloride 0.9% [Normal Saline] 1,000 ml Med 01/03/18 19:45 Active IV ASDIRECTED Thiamine [Vitamin B-1] Med 01/04/18 09:00 Active 100 mg PO DAILY Zolpidem [Ambien] Med 01/03/18 21:13 Active 5 mg PO BEDTIME PRN predniSONE Med 01/03/18 21:13 Active 7.5 mg PO BEDTIME Medication Discontinuation Instructions [OM.PC] Stat Oth 01/03/18 21:13 Ordered Sequential Compression Device [OM.PC] Per Unit Routine Oth 01/03/18 21:13 Ordered Resuscitation Status Routine Resus Stat 01/03/18 20:44 Ordered Medication Orders Albuterol (Proventil Neb Soln) 2.5 mg NEB Q4H PRN PRN Reason: Shortness Of Breath/wheezing Albuterol/Ipratropium (Duoneb 3.0-0.5 Mg/3 Ml) 3 ml NEB QID PRN PRN Reason: Shortness Of Breath/wheezing Docusate Sodium (Colace) 100 mg PO BID PRN PRN Reason: Constipation Hydromorphone HCl (Dilaudid Fixed Income Analyst 15 Mg In Ns 30 Ml) 0 mg IV ASDIRECTED PRN; Protocol PRN Reason: Pain Last Admin: 01/03/18 21:46 Dose: 15 mg Sodium Chloride (Normal Saline) 1,000 mls @ 250 mls/hr IV ASDIRECTED PREET Last Admin: 01/03/18 19:49 Dose: 250 mls/hr Lactated Ringer's (Ringers, Lactated) 1,000 mls @ 125 mls/hr IV ASDIRECTED [facility] Last Admin: 01/03/18 23:29 Dose: 125 mls/hr Levothyroxine Sodium (Levothyroxine) 112 mcg PO DAILY [facility] Lorazepam (Ativan) 1 mg IV Q6H PRN PRN Reason: Nausea/Vomiting Melatonin (Melatonin) 6 mg PO BEDTIME PRN PRN Reason: Insomnia Naloxone HCl (Narcan) 0.4 mg IVPUSH Q2M PRN PRN Reason: Respiratory Distress Ondansetron HCl (Zofran Odt) 4 mg PO Q6H PRN PRN Reason: Nausea able to take PO Ondansetron HCl (Zofran) 4 mg IV Q4H PRN PRN Reason: Nausea/Vomiting Pantoprazole Sodium (Protonix Iv) 40 mg IVPUSH DAILY [facility] Potassium Chloride (Potassium Chloride Solution) 20 meq PO DAILY [facility] Prednisone (Prednisone) 7.5 mg PO BEDTIME [facility] Last Admin: 01/03/18 21:41 Dose: Not Given Thiamine HCl (Vitamin B-1) 100 mg PO DAILY [facility] Zolpidem Tartrate (Ambien) 5 mg PO BEDTIME PRN PRN Reason: Sleep - Assessment Assessment (Free Text/Narrative):: CXR with right lung inflated. No air leak. - Plan Plan (Free Text/Narrative):: Chest tube to water seal.
[2018-01-04] MEDS: Lactated Ringers 1,000 ML IV SCH ×2 (07:43→11:59)
--- NOTE | 2018-01-04 08:41 | OR ---
DATE OF PROCEDURE: 01/03/2018 PREOPERATIVE DIAGNOSIS: Right pneumothorax. POSTOPERATIVE DIAGNOSIS: Right pneumothorax. PROCEDURE: Placement of a 20-Kyrgyz right chest tube. SURGEON: Hiram Ko MD. ARTS AND CRAFTS INSTRUCTOR: RASHEL Jules. ANESTHESIA: 1% lidocaine with epinephrine local. INDICATION: This 77-year-old white female, about 4 o'clock this afternoon noticed sudden onset of shortness of breath. She presented to the emergency room where a chest x-ray shows that she has a right pneumothorax. Of interest, earlier today, she had a trigger point injection in her chest, possibly this was related. I counseled her for a right chest tube placement, including risks and alternatives, and she gave her informed consent to proceed. DESCRIPTION OF PROCEDURE: Her right chest was prepped and draped in usual sterile fashion. Lidocaine 1% with epinephrine was infiltrated along the anterior axillary line at about the level of the areolar complex. An oblique incision parallel to the ribs was made and then the subcutaneous tissue was divided to course up over the tube superior to the incision. We entered the chest. A 20-Kyrgyz chest tube was obtained, it was placed up in the chest, it was anchored with 0 Ethibond suture. The tube was cut off and attached to the suction device. We placed it at 20 cm of water suction. A sterile dressing was applied. Chest x- ray shows the lung to be expanded and the tube to be in an adequate position. She tolerated the procedure well. Hiram Ko MD /[id number]
[2018-01-04] MEDS ORDERED: Pantoprazole 40 MG Vial IVPUSH SCH (09:00)
--- NOTE | 2018-01-04 09:31 | CR ---
CHEST: 2 view CLINICAL HISTORY:Shortness of breath COMPARISON:September FINDINGS: Lungs are emphysematous. There is a moderate right-sided pneumothorax. It is about 40%. Th ere is no shift of the mediastinum. Impression: Interval development of a moderate sized right pneumothorax COPD
--- NOTE | 2018-01-04 09:32 | CR ---
CHEST: Portable CLINICAL HISTORY:Pneumothorax COMPARISON:Same day FINDINGS: Right chest tube is been placed. The the right-sided pneumothorax has been significantly r educed.. IMPRESSION: Interval placement of right chest tube with reduction in pneumothorax
[2018-01-04] MEDS: Potassium Chloride 10% 20 MEQ/15 ML Soln 15 ML UD Cup PO SCH (09:37)
[2018-01-04] MEDS: Thiamine 100 MG Tab PO SCH (09:37)
[2018-01-04] MEDS: Levothyroxine 112 MCG Tab PO SCH (09:37)
--- NOTE | 2018-01-04 09:44 | CR ---
CHEST: Portable CLINICAL HISTORY:Chest tube placement COMPARISON:01/03/2018 FINDINGS: Right chest tube remains in place. There may be minimal subpulmonic pneumothorax. There is some streaky atelectasis in the right lung base.. IMPRESSION: Chest tube remains in place Possible minimal subpulmonic pneumothorax remains Right basal subsegmental atelectasis
--- NOTE | 2018-01-04 10:31 | PCM.PN ---
- General Info Date of Service: 01/04/18 Subjective Update: Ms. Garza is a 77-year-old woman who is admitted through the emergency department last night with a right pneumothorax. Chest tube was placed in the emergency department by Dr. Ko. Earlier in the afternoon she had undergone thoracic trigger point injections. She is been stable since admission with no significant air leak, chest tube has been placed to waterseal this morning. Functional Status: Reports: Tolerating Diet, Urinating - Review of Systems General: Denies: Fever, Chills Pulmonary: Reports: Pleuritic Chest Pain. Denies: Shortness of Breath, Cough, Sputum, Hemoptysis, Wheezing Cardiovascular: Reports: No Symptoms Gastrointestinal: Reports: No Symptoms - Patient Data Vitals - Most Recent: Last Vital Signs Temp 96.4 F 01/04/18 07:16 Pulse 66 01/04/18 07:16 Resp 18 01/04/18 07:16 BP 109/60 01/04/18 07:16 Pulse Ox 96 01/04/18 07:23 Weight - Most Recent: 124 lb 14.4 oz I&O - Last 24 Hours: Intake & Output 01/03/18 01/04/18 01/04/18 22:59 06:59 14:59 Intake Total 240 737 Output Total 700 508 Balance -460 229 Lab Results Last 24 Hours: Laboratory Results - last 24 hr 01/03/18 01/03/18 01/04/18 Range/Units 18:18 18:18 05:15 WBC 11.9 H 12.0 H (4.5-11.0) K/uL RBC 4.50 4.15 (3.30-5.50) M/uL Hgb 13.4 12.3 (12.0-15.0) g/dL Hct 43.0 39.9 (36.0-48.0) % MCV 96 96 (80-98) fL MCH 30 30 (27-31) pg MCHC 31 L 31 L (32-36) % Plt Count 357 332 (150-400) K/uL Neut % (Auto) 66 70 H (36-66) % Lymph % (Auto) 23 L 19 L (24-44) % [place] % (Auto) 9 H 9 H (2-6) % Eos % (Auto) 2 2 (2-4) % Baso % (Auto) 0 0 (0-1) % Sodium 143 (140-148) mmol/L Potassium 4.7 (3.6-5.2) mmol/L Chloride 106 (100-108) mmol/L Carbon Dioxide 30 (21-32) mmol/L Anion Gap 6.6 (5.0-14.0) mmol/L BUN 14 D (7-18) mg/dL Creatinine 0.9 (0.6-1.0) mg/dL Est Cr Clr Drug Dosing 47.22 mL/min Estimated GFR (MDRD) > 60 (>60) Glucose 116 H (74-106) mg/dL Calcium 8.8 (8.5-10.1) mg/dL Total Bilirubin 0.3 (0.2-1.0) mg/dL AST 29 (15-37) U/L ALT 31 (12-78) U/L Alkaline Phosphatase 113 (46-116) U/L Total Protein 7.0 (6.4-8.2) g/dL Albumin 3.3 L (3.4-5.0) g/dL Globulin 3.7 H (2.3-3.5) g/dL Albumin/Globulin Ratio 0.9 L (1.2-2.2) 01/04/18 Range/Units 05:15 WBC (4.5-11.0) K/uL RBC (3.30-5.50) M/uL Hgb (12.0-15.0) g/dL Hct (36.0-48.0) % MCV (80-98) fL MCH (27-31) pg MCHC (32-36) % Plt Count (150-400) K/uL Neut % (Auto) (36-66) % Lymph % (Auto) (24-44) % [place] % (Auto) (2-6) % Eos % (Auto) (2-4) % Baso % (Auto) (0-1) % Sodium 142 (140-148) mmol/L Potassium 4.0 (3.6-5.2) mmol/L Chloride 108 (100-108) mmol/L Carbon Dioxide 27 (21-32) mmol/L Anion Gap 6.9 (5.0-14.0) mmol/L BUN 10 (7-18) mg/dL Creatinine 0.8 (0.6-1.0) mg/dL Est Cr Clr Drug Dosing 53.51 mL/min Estimated GFR (MDRD) > 60 (>60) Glucose 126 H (74-106) mg/dL Calcium 8.5 (8.5-10.1) mg/dL Total Bilirubin (0.2-1.0) mg/dL AST (15-37) U/L ALT (12-78) U/L Alkaline Phosphatase (46-116) U/L Total Protein (6.4-8.2) g/dL Albumin (3.4-5.0) g/dL Globulin (2.3-3.5) g/dL Albumin/Globulin Ratio (1.2-2.2) Med Orders - Current: Current Medications Albuterol (Proventil Neb Soln) 2.5 mg NEB Q4H PRN PRN Reason: Shortness Of Breath/wheezing Albuterol/Ipratropium (Duoneb 3.0-0.5 Mg/3 Ml) 3 ml NEB QID PRN PRN Reason: Shortness Of Breath/wheezing Docusate Sodium (Colace) 100 mg PO BID PRN PRN Reason: Constipation Hydromorphone HCl (Dilaudid Data Processing Manager 15 Mg In Ns 30 Ml) 0 mg IV ASDIRECTED PRN; Protocol PRN Reason: Pain Last Admin: 01/03/18 21:46 Dose: 15 mg Sodium Chloride (Normal Saline) 1,000 mls @ 250 mls/hr IV ASDIRECTED PREET Last Admin: 01/03/18 19:49 Dose: 250 mls/hr Levothyroxine Sodium (Levothyroxine) 112 mcg PO DAILY@0730 [facility] Last Admin: 01/04/18 09:37 Dose: 112 mcg Lorazepam (Ativan) 1 mg IV Q6H PRN PRN Reason: Nausea/Vomiting Melatonin (Melatonin) 6 mg PO BEDTIME PRN PRN Reason: Insomnia Naloxone HCl (Narcan) 0.4 mg IVPUSH Q2M PRN PRN Reason: Respiratory Distress Ondansetron HCl (Zofran Odt) 4 mg PO Q6H PRN PRN Reason: Nausea able to take PO Ondansetron HCl (Zofran) 4 mg IV Q4H PRN PRN Reason: Nausea/Vomiting Pantoprazole Sodium (Protonix) 40 mg PO ACBREAKFAST [facility] Potassium Chloride (Potassium Chloride Solution) 20 meq PO DAILY [facility] Last Admin: 01/04/18 09:37 Dose: 20 meq Prednisone (Prednisone) 7.5 mg PO BEDTIME [facility] Last Admin: 01/03/18 21:41 Dose: Not Given Thiamine HCl (Vitamin B-1) 100 mg PO DAILY [facility] Last Admin: 01/04/18 09:37 Dose: 100 mg Zolpidem Tartrate (Ambien) 5 mg PO BEDTIME PRN PRN Reason: Sleep Discontinued Medications Fentanyl (Sublimaze) 50 mcg IVPUSH ONETIME ONE Stop: 01/03/18 19:23 Last Admin: 01/03/18 19:44 Dose: 50 mcg Lactated Ringer's (Ringers, Lactated) 1,000 mls @ 125 mls/hr IV ASDIRECTED [facility] Last Admin: 01/04/18 07:43 Dose: 125 mls/hr Lidocaine/Epinephrine (Xylocaine 1% With Epinephrine 1:100,000) 5 ml INJECT NOW STA Stop: 01/03/18 19:47 Last Admin: 01/03/18 19:49 Dose: 5 ml Pantoprazole Sodium (Protonix Iv) 40 mg IVPUSH DAILY [facility] Last Admin: 01/04/18 09:37 Dose: 40 mg - Exam Quality Assessment: DVT Prophylaxis General: Alert, Oriented, Cooperative, Mild Distress Lungs: Clear to Auscultation, Normal Respiratory Effort Cardiovascular: Regular Rate, Regular Rhythm, No Murmurs GI/Abdominal Exam: Soft, Non-Tender, No Organomegaly, No Distention Extremities: Non-Tender, No Pedal Edema Skin: Warm, Dry, Intact - Problem List Review Problem List Initiated/Reviewed/Updated: Yes - My Orders Last 24 Hours: My Active Orders 01/04/18 10:24 Convert IV to Saline Lock [OM.PC] Routine - Plan Plan:: ASSESSMENT / PLAN Pneumothorax right -chest tube placed in the emergency department -Saline lock IV -albuterol nebulizer every 4 hours as needed for wheezing and cough -Duo neb every 6 hours as needed - 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 Ko Maintenance issues -Nutrition: regular diet, celiac protocol, no fat, no bladder, no spaces, no pepper -Palmer catheter not indicated at this time -DVT: SCD -PPI: IV Protonix 40mg daily -consult OT for discharge planning -consult PT for strengthening. -consult Spiritual -Consult to surgery CODE STATUS: FULL CODE Admission status: Admit to [address] [place] [address] Admission justification. This patient will be admitted for inpatient services and is medically appropriate meeting medical necessity for inpatient admission as outlined in my documentation. I reasonably expect the patient will require inpatient services that span. Time over 2 midnights. I reasonably expect this patient to be discharged or transferred within 96 hours after admission to the [facility]. Disposition; home Primary care provider: TIM Nelson Hospitalist: Dr. Yang
[2018-01-04] MEDS: [UNRECOGNIZED DRUG - REMARK] TOP SCH (11:08)
[2018-01-04] MEDS: predniSONE 5 MG Tab PO SCH (20:44)
[2018-01-05] MEDS: Lactated Ringers 1,000 ML IV SCH (06:42)
[2018-01-05] MEDS: HYDROmorphone/Normal Saline 15 MG/30 ML PCA IV PRN (08:15)
[2018-01-05] MEDS: Levothyroxine 112 MCG Tab PO SCH (08:29)
[2018-01-05] MEDS: Potassium Chloride 10% 20 MEQ/15 ML Soln 15 ML UD Cup PO SCH (08:30)
[2018-01-05] MEDS: Thiamine 100 MG Tab PO SCH (08:30)
[2018-01-05] MEDS: Pantoprazole 40 MG Tab.CR PO SCH (08:30)
[2018-01-05] MEDS: [UNRECOGNIZED DRUG - REMARK] TOP SCH (08:32)
--- NOTE | 2018-01-05 10:09 | CR ---
CHEST: Portable CLINICAL HISTORY:Pneumothorax with chest tube insertion COMPARISON:01/04/2018 FINDINGS: Right chest tube remains in place. There is a curvilinear density in the right lung base w hich may represent some atelectasis. A tiny subpulmonic pneumothorax cannot be excluded. IMPRESSION: Right chest tube remains in place The linear density right lung base may represent a minimal subpulmonic pneumothorax
[2018-01-05] MEDS ORDERED: Bacitracin Oint 1 GM U/D Packet TOP ONE (10:20)
--- NOTE | 2018-01-05 10:51 | PCM.SURGPN ---
- General Info Date of Service: 01/05/18 Date of Surgery/Procedure: 01/03/18 POD#: 2 Post-Op Diagnosis: Pneumothorax Functional Status: Reports: Pain Controlled, Tolerating Diet, Ambulating, Urinating, Incentive Spirometry - Review of Systems General: Reports: No Symptoms HEENT: Reports: No Symptoms Pulmonary: Reports: No Symptoms, Other (Her oxygen is off. ) Cardiovascular: Reports: No Symptoms Gastrointestinal: Reports: No Symptoms Genitourinary: Reports: No Symptoms Musculoskeletal: Reports: No Symptoms Skin: Reports: No Symptoms Neurological: Reports: No Symptoms Psychiatric: Reports: No Symptoms - Patient Data Vitals - Most Recent: Last Vital Signs Temp 97 F 01/05/18 07:34 Pulse 70 01/05/18 07:34 Resp 16 01/05/18 07:34 BP 110/51 L 01/05/18 07:34 Pulse Ox 93 L 01/05/18 07:34 Weight - Most Recent: 124 lb 14.411 oz I&O - Last 24 Hours: Intake & Output 01/04/18 01/05/18 01/05/18 22:59 06:59 14:59 Intake Total 1200 1587 Output Total 815 300 Balance 1200 772 -300 Med Orders - Current: Current Medications Albuterol (Proventil Neb Soln) 2.5 mg NEB Q4H PRN PRN Reason: Shortness Of Breath/wheezing Albuterol/Ipratropium (Duoneb 3.0-0.5 Mg/3 Ml) 3 ml NEB QID PRN PRN Reason: Shortness Of Breath/wheezing Docusate Sodium (Colace) 100 mg PO BID PRN PRN Reason: Constipation Lactated Ringer's (Ringers, Lactated) 1,000 mls @ 30 mls/hr IV ASDIRECTED [facility] Last Admin: 01/05/18 06:42 Dose: 30 mls/hr Levothyroxine Sodium (Levothyroxine) 112 mcg PO DAILY@0730 [facility] Last Admin: 01/05/18 08:29 Dose: 112 mcg Lorazepam (Ativan) 1 mg IV Q6H PRN PRN Reason: Nausea/Vomiting Melatonin (Melatonin) 6 mg PO BEDTIME PRN PRN Reason: Insomnia Estradiol [Climara] (0.06 Mg Patch (Ptom)) 0 mg TOP Q7D [facility] Verify Climira Patch 0 each TOP DAILY [facility] Last Admin: 01/05/18 08:32 Dose: Not Given Ondansetron HCl (Zofran Odt) 4 mg PO Q6H PRN PRN Reason: Nausea able to take PO Ondansetron HCl (Zofran) 4 mg IV Q4H PRN PRN Reason: Nausea/Vomiting Pantoprazole Sodium (Protonix) 40 mg PO ACBREAKFAST [facility] Last Admin: 01/05/18 08:30 Dose: 40 mg Potassium Chloride (Potassium Chloride Solution) 20 meq PO DAILY [facility] Last Admin: 01/05/18 08:30 Dose: 20 meq Prednisone (Prednisone) 7.5 mg PO BEDTIME [facility] Last Admin: 01/04/18 20:44 Dose: Not Given Thiamine HCl (Vitamin B-1) 100 mg PO DAILY [facility] Last Admin: 01/05/18 08:30 Dose: 100 mg Discontinued Medications Bacitracin (Bacitracin Oint 1 Gm) 2 dose TOP ONETIME ONE Stop: 01/05/18 10:21 Fentanyl (Sublimaze) 50 mcg IVPUSH ONETIME ONE Stop: 01/03/18 19:23 Last Admin: 01/03/18 19:44 Dose: 50 mcg Hydromorphone HCl (Dilaudid Sales Enablement Manager 15 Mg In Ns 30 Ml) 0 mg IV ASDIRECTED PRN; Protocol PRN Reason: Pain Last Admin: 01/05/18 08:15 Dose: 15 mg Sodium Chloride (Normal Saline) 1,000 mls @ 250 mls/hr IV ASDIRECTED [facility] Last Admin: 01/03/18 19:49 Dose: 250 mls/hr Lactated Ringer's (Ringers, Lactated) 1,000 mls @ 125 mls/hr IV ASDIRECTED [facility] Last Admin: 01/04/18 07:43 Dose: 125 mls/hr Lidocaine/Epinephrine (Xylocaine 1% With Epinephrine 1:100,000) 5 ml INJECT NOW STA Stop: 01/03/18 19:47 Last Admin: 01/03/18 19:49 Dose: 5 ml Naloxone HCl (Narcan) 0.4 mg IVPUSH Q2M PRN PRN Reason: Respiratory Distress Pantoprazole Sodium (Protonix Iv) 40 mg IVPUSH DAILY [facility] Last Admin: 01/04/18 09:37 Dose: 40 mg Zolpidem Tartrate (Ambien) 5 mg PO BEDTIME PRN PRN Reason: Sleep - Exam Wound/Incisions: Healing Well General: Alert, Oriented, Cooperative, No Acute Distress Lungs: Clear to Auscultation, Normal Respiratory Effort Cardiovascular: Regular Rate, Regular Rhythm GI/Abdominal Exam: Normal Bowel Sounds, Soft, Non-Tender Extremities: Normal Inspection Skin: Warm, Dry, Intact Neurological: No New Focal Deficit Psy/Mental Status: Alert, Normal Affect, Normal Mood - Problem List & Annotations (1) Pneumothorax on right SNOMED Code(s): 865259217 Code(s): J93.9 - PNEUMOTHORAX, UNSPECIFIED Status: Acute Priority: High Current Visit: Yes - Problem List Review Problem List Initiated/Reviewed/Updated: Yes - My Orders Last 24 Hours: Active Orders 24 hr Category Date Time Status Chest 1V Frontal [CR] DAILY Exams 01/06/18 05:11 Ordered Chest 1V Frontal [CR] DAILY Exams 01/07/18 05:11 Ordered Chest 1V Frontal [CR] DAILY Exams 01/08/18 05:11 Ordered Chest 1V Frontal [CR] DAILY Exams 01/09/18 05:11 Ordered Estradiol [Climara] Med 01/07/18 09:00 Active 0 mg TOP Q7D Lactated Ringers [Ringers, Lactated] 1,000 ml Med 01/04/18 10:59 Active IV ASDIRECTED Non-Formulary Medication [NF Drug] Med 01/04/18 11:00 Active 0 each TOP DAILY Pantoprazole [ProTONIX] Med 01/05/18 07:30 Active 40 mg PO ACBREAKFAST Medication Orders Albuterol (Proventil Neb Soln) 2.5 mg NEB Q4H PRN PRN Reason: Shortness Of Breath/wheezing Albuterol/Ipratropium (Duoneb 3.0-0.5 Mg/3 Ml) 3 ml NEB QID PRN PRN Reason: Shortness Of Breath/wheezing Docusate Sodium (Colace) 100 mg PO BID PRN PRN Reason: Constipation Lactated Ringer's (Ringers, Lactated) 1,000 mls @ 30 mls/hr IV ASDIRECTED [facility] Last Admin: 01/05/18 06:42 Dose: 30 mls/hr Infusion: 01/05/18 06:42 Dose: 30 mls/hr Admin: 01/04/18 11:59 Dose: 30 mls/hr Levothyroxine Sodium (Levothyroxine) 112 mcg PO DAILY@0730 [facility] Last Admin: 01/05/18 08:29 Dose: 112 mcg Admin: 01/04/18 09:37 Dose: 112 mcg Lorazepam (Ativan) 1 mg IV Q6H PRN PRN Reason: Nausea/Vomiting Melatonin (Melatonin) 6 mg PO BEDTIME PRN PRN Reason: Insomnia Estradiol [Climara] (0.06 Mg Patch (Ptom)) 0 mg TOP Q7D [facility] Verify Climira Patch 0 each TOP DAILY [facility] Last Admin: 01/05/18 08:32 Dose: Admin: 01/04/18 11:08 Dose: Ondansetron HCl (Zofran Odt) 4 mg PO Q6H PRN PRN Reason: Nausea able to take PO Ondansetron HCl (Zofran) 4 mg IV Q4H PRN PRN Reason: Nausea/Vomiting Pantoprazole Sodium (Protonix) 40 mg PO [facility]AKFAST [facility] Last Admin: 01/05/18 08:30 Dose: 40 mg Potassium Chloride (Potassium Chloride Solution) 20 meq PO DAILY [facility] Last Admin: 01/05/18 08:30 Dose: 20 meq Admin: 01/04/18 09:37 Dose: 20 meq Prednisone (Prednisone) 7.5 mg PO BEDTIME [facility] Last Admin: 01/04/18 20:44 Dose: Not Given Admin: 01/03/18 21:41 Dose: Not Given Thiamine HCl (Vitamin B-1) 100 mg PO DAILY [facility] Last Admin: 01/05/18 08:30 Dose: 100 mg Admin: 01/04/18 09:37 Dose: 100 mg - Assessment Assessment (Free Text/Narrative):: CXR with lung expanded. - Plan Plan (Free Text/Narrative):: D/C chest tube. CXR pending.
[2018-01-05] MEDS: Acetaminophen/HYDROcodone 325-5 MG Tab PO PRN ×3 (11:37→22:37)
--- NOTE | 2018-01-05 12:17 | PCM.PN ---
- General Info Date of Service: 01/05/18 Subjective Update: This patient has remained stable since yesterday, continues to experience pain related to the chest tube. Denies significant shortness of breath and has been hemodynamically stable as well as afebrile. Chest tube has been to water seal over the past 24 hours with no evidence of ongoing air leak. Dr. Ko remove the chest tube earlier today. Functional Status: Reports: Pain Controlled, Tolerating Diet, Urinating - Review of Systems General: Denies: Fever, Chills Pulmonary: Reports: No Symptoms Cardiovascular: Reports: No Symptoms Gastrointestinal: Reports: No Symptoms - Patient Data Vitals - Most Recent: Last Vital Signs Temp 97.7 F 01/05/18 12:08 Pulse 82 01/05/18 12:08 Resp 16 01/05/18 12:08 BP 119/80 01/05/18 12:08 Pulse Ox 91 L 01/05/18 12:08 Weight - Most Recent: 124 lb 14.411 oz I&O - Last 24 Hours: Intake & Output 01/04/18 01/05/18 01/05/18 22:59 06:59 14:59 Intake Total 1200 1587 Output Total 815 300 Balance 1200 772 -300 Med Orders - Current: Current Medications Hydrocodone Bitart/Acetaminophen ([place] 325-5 Mg) 1 - 2 tab PO Q4H PRN PRN Reason: Pain Albuterol (Proventil Neb Soln) 2.5 mg NEB Q4H PRN PRN Reason: Shortness Of Breath/wheezing Albuterol/Ipratropium (Duoneb 3.0-0.5 Mg/3 Ml) 3 ml NEB QID PRN PRN Reason: Shortness Of Breath/wheezing Docusate Sodium (Colace) 100 mg PO BID PRN PRN Reason: Constipation Lactated Ringer's (Ringers, Lactated) 1,000 mls @ 30 mls/hr IV ASDIRECTED [facility] Last Admin: 01/05/18 06:42 Dose: 30 mls/hr Levothyroxine Sodium (Levothyroxine) 112 mcg PO DAILY@0730 [facility] Last Admin: 01/05/18 08:29 Dose: 112 mcg Lorazepam (Ativan) 1 mg IV Q6H PRN PRN Reason: Nausea/Vomiting Melatonin (Melatonin) 6 mg PO BEDTIME PRN PRN Reason: Insomnia Estradiol [Climara] (0.06 Mg Patch (Ptom)) 0 mg TOP Q7D [facility] Verify Climira Patch 0 each TOP DAILY [facility] Last Admin: 01/05/18 08:32 Dose: Not Given Ondansetron HCl (Zofran Odt) 4 mg PO Q6H PRN PRN Reason: Nausea able to take PO Ondansetron HCl (Zofran) 4 mg IV Q4H PRN PRN Reason: Nausea/Vomiting Pantoprazole Sodium (Protonix) 40 mg PO ACBREAKFAST [facility] Last Admin: 01/05/18 08:30 Dose: 40 mg Potassium Chloride (Potassium Chloride Solution) 20 meq PO DAILY [facility] Last Admin: 01/05/18 08:30 Dose: 20 meq Thiamine HCl (Vitamin B-1) 100 mg PO DAILY [facility] Last Admin: 01/05/18 08:30 Dose: 100 mg Discontinued Medications Bacitracin (Bacitracin Oint 1 Gm) 2 dose TOP ONETIME ONE Stop: 01/05/18 10:21 Fentanyl (Sublimaze) 50 mcg IVPUSH ONETIME ONE Stop: 01/03/18 19:23 Last Admin: 01/03/18 19:44 Dose: 50 mcg Hydromorphone HCl (Dilaudid Truck Dispatcher 15 Mg In Ns 30 Ml) 0 mg IV ASDIRECTED PRN; Protocol PRN Reason: Pain Last Admin: 01/05/18 08:15 Dose: 15 mg Sodium Chloride (Normal Saline) 1,000 mls @ 250 mls/hr IV ASDIRECTED [facility] Last Admin: 01/03/18 19:49 Dose: 250 mls/hr Lactated Ringer's (Ringers, Lactated) 1,000 mls @ 125 mls/hr IV ASDIRECTED [facility] Last Admin: 01/04/18 07:43 Dose: 125 mls/hr Lidocaine/Epinephrine (Xylocaine 1% With Epinephrine 1:100,000) 5 ml INJECT NOW STA Stop: 01/03/18 19:47 Last Admin: 01/03/18 19:49 Dose: 5 ml Naloxone HCl (Narcan) 0.4 mg IVPUSH Q2M PRN PRN Reason: Respiratory Distress Pantoprazole Sodium (Protonix Iv) 40 mg IVPUSH DAILY [facility] Last Admin: 01/04/18 09:37 Dose: 40 mg Prednisone (Prednisone) 7.5 mg PO BEDTIME [facility] Last Admin: 01/04/18 20:44 Dose: Not Given Zolpidem Tartrate (Ambien) 5 mg PO BEDTIME PRN PRN Reason: Sleep - Exam Quality Assessment: DVT Prophylaxis General: Alert, Oriented, Cooperative, Mild Distress Lungs: Clear to Auscultation, Normal Respiratory Effort Cardiovascular: Regular Rate, Regular Rhythm, No Murmurs GI/Abdominal Exam: Soft, Non-Tender, No Organomegaly, No Distention Extremities: Non-Tender, No Pedal Edema Skin: Warm, Dry, Intact - Problem List Review Problem List Initiated/Reviewed/Updated: Yes - My Orders Last 24 Hours: My Active Orders 01/07/18 09:00 Estradiol [Climara] 0 mg TOP Q7D - Plan Plan:: ASSESSMENT / PLAN Pneumothorax right -chest tube removed earlier today by Dr. Ko, it had been placed to water seal yesterday with no evidence of ongoing air leak -Saline lock IV -albuterol nebulizer every 4 hours as needed for wheezing and cough -Duo neb every 6 hours as needed -Follow-up chest x-ray in a.m., if no evidence of pneumothorax plan for discharge to home Maintenance issues -Nutrition: regular diet, celiac protocol, no fat, no bladder, no spaces, no pepper -Palmer catheter not indicated at this time -DVT: SCD -PPI: IV Protonix 40mg daily -consult OT for discharge planning -consult PT for strengthening. -consult Spiritual -Consult to surgery CODE STATUS: FULL CODE Admission status: Admit to [address] [place] [address] justification. This patient will be admitted for inpatient services and is medically appropriate meeting medical necessity for inpatient admission as outlined in my documentation. I reasonably expect the patient will require inpatient services that span. Time over 2 midnights. I reasonably expect this patient to be discharged or transferred within 96 hours after admission to the critical access hospital. Disposition; anticipate discharge to home tomorrow Primary care provider: TIM Nelson Hospitalist: Dr. Yang
--- NOTE | 2018-01-05 12:17 | CR ---
CHEST: Portable CLINICAL HISTORY:Right chest tube removal COMPARISON:Earlier same day FINDINGS: Right chest tube is been removed. There is persistent streaky density in the right lung ba se. No obvious pneumothorax is identified. Findings are similar to earlier study. IMPRESSION: Right chest tube removal. Persistent streaky density at the right lung base No obvious pneumothorax
[2018-01-06 07:24] VITALS: BP 120/68
[2018-01-06] MEDS: Acetaminophen/HYDROcodone 325-5 MG Tab PO PRN ×2 (07:45→11:45)
[2018-01-06] MEDS: Pantoprazole 40 MG Tab.CR PO SCH (07:50)
[2018-01-06] MEDS: Levothyroxine 112 MCG Tab PO SCH (07:50)
[2018-01-06] MEDS: Thiamine 100 MG Tab PO SCH (09:31)
[2018-01-06] MEDS: Potassium Chloride 10% 20 MEQ/15 ML Soln 15 ML UD Cup PO SCH (09:31)
[2018-01-06] MEDS: [UNRECOGNIZED DRUG - REMARK] TOP SCH (09:32)
--- NOTE | 2018-01-06 10:40 | PCM.DCSUM1 ---
Discharge Summary - Hospital Course Brief History: Ms. Garza is a 77-year-old woman who was admitted through the emergency department with shortness of breath and chest pain secondary to a right pneumothorax. - Discharge Data Discharge Date: 01/06/18 Discharge Disposition: Home, Self-Care 01 Condition: Good - Discharge Diagnosis/Problem(s) (1) Pneumothorax on right SNOMED Code(s): 588126691 ICD Code: J93.9 - PNEUMOTHORAX, UNSPECIFIED Status: Acute Priority: High Current Visit: Yes (2) Status post chest tube placement SNOMED Code(s): 827862057, 837799474 ICD Code: Z93.8 - OTHER ARTIFICIAL OPENING STATUS Status: Acute Priority : High Current Visit: Yes (3) SOB (shortness of breath) SNOMED Code(s): 690780734 ICD Code: R06.02 - SHORTNESS OF BREATH Status: Acute Current Visit: Yes - Patient Summary/Data Consults: Consultations 01/03/18 21:13 Consult to Physician [CONS] Urgent Consulting Provider: Hirma Ko Call Completed to Consulting Physician: Yes: chest tube management Consult to Spiritual Care [CONS] Routine OT Evaluation and Treatment [CONS] Routine Please Evaluate and Treat. OT Reason for Consult: Discharge Planning This query below is only for informational purposes and is not editable. PT Evaluation and Treatment [CONS] Routine Please Evaluate and Treat. PT Reason for Consult: Strengthening This query below is only for informational purposes and is not editable. Respiratory Care Assess and Treatment [CONS] Routine Comment: Physician Instructions: Hospital Course: 77-year-old female presented emergency department with sudden onset of shortness of breath, she does have a history of severe COPD underwent trigger point injections thoraic on the day of admission. She been home approximately 2 hours when she noted sudden onset of severe shortness of breath and right-sided chest pain. On evaluation in the emergency department she was found to have a right pneumothorax. Dr. Ko was consult and a chest tube was placed in the emergency department. She was admitted to the hospital, the following morning was noted to have no significant air leak with the chest tube. During evaluation by Dr. Ko the chest tube was placed to a waterseal. Following day chest x-ray showed no recurrence of pneumothorax. In the chest tube was removed. She was monitored one additional day, on the morning of discharge chest x-ray showed no recurrence of the pneumothorax. She will be discharged home, activity will be as tolerated and she will resume her usual diet. She will return to the emergency department immediately if she notes recurrent symptoms of chest pain or shortness of breath. Follow-up appointment will be scheduled in approximately one week with Dr. Ko. Also follow-up appointment with primary care provider within one week. - Patient Instructions Diet: Usual Diet as Tolerated Activity: As Tolerated Activity, Other: No flying, scuba diving or driving in mountains for three months. Driving: Do Not Drive Showering/Bathing: Shower in AM Wound/Incision Care: Change Dressing Daily Notify Provider of: Fever, Increased Pain, Swelling and Redness, Drainage, Nausea and/or Vomiting - Discharge Plan Home Medications: Home Meds Cholecalciferol (Vitamin D3) [Vitamin D3] 1,000 unit PO DAILY 03/24/15 [History] Cyanocobalamin (Vitamin B-12) [Cyanocobalamin Injection] 1 ml IM .[id number] [History] Ergocalciferol (Vitamin D2) [Vitamin D2] 50,000 unit PO .[id number] 03/24/15 [ History] Estradiol [Climara] 0.06 mg TOP WEEKLY 03/24/15 [History] Levothyroxine 112 mcg PO DAILY 03/24/15 [History] Multivitamin [Flintstones] 1 tab PO BID 03/24/15 [History] Multivitamin/Ferrous Gluconate [Multi-Delyn with Iron Liquid] 20 ml PO DAILY [History] Omeprazole 40 mg PO DAILY 03/24/15 [History] Potassium Chloride 15 ml PO DAILY 03/24/15 [History] Thiamine [Vitamin B-1] 100 mg PO DAILY 03/24/15 [History] ZOLMitriptan [Zomig ZMT] 5 mg PO ASDIRECTED PRN 03/24/15 [History] Cyanocobalamin (Vitamin B-12) [Vitamin B-12] 1,000 mcg SL DAILY 03/22/17 [ History] Promethazine [Phenadoz] 25 mg RECTAL Q6H PRN 03/22/17 [History] predniSONE [Prednisone] 7.5 mg PO BEDTIME 03/22/17 [History] HYDROcodone/Ibuprofen [Vicoprofen] 1 tab PO Q8H PRN 10/04/17 [History] Acetaminophen/HYDROcodone [[place] 325-5 MG] 1 - 2 tab PO Q4H PRN tablet [Rx] Docusate Sodium [Colace] 100 mg PO BID PRN cap 01/05/18 [Rx] Referrals: Lindsay Sales PA-C [Primary Care Provider] - () Hiram Ko MD [Physician] - (See me in clinic January 15, 2018 for CXR and suture removal.) - Discharge Summary/Plan Comment DC Time >30 min.: No - Patient Data Vitals - Most Recent: Last Vital Signs Temp 96.4 F 01/06/18 07:21 Pulse 73 01/06/18 07:21 Resp 16 01/06/18 07:21 BP 120/68 01/06/18 07:21 Pulse Ox 96 01/06/18 07:21 Weight - Most Recent: 124 lb 14.411 oz I&O - Last 24 hours: Intake & Output 01/05/18 01/06/18 01/06/18 22:59 06:59 14:59 Intake Total 800 240 Output Total 1000 0 Balance -1000 800 240 Med Orders - Current: Current Medications Hydrocodone Bitart/Acetaminophen ([place] 325-5 Mg) 1 - 2 tab PO Q4H PRN PRN Reason: Pain Last Admin: 01/06/18 07:45 Dose: 2 tab Albuterol (Proventil Neb Soln) 2.5 mg NEB Q4H PRN PRN Reason: Shortness Of Breath/wheezing Albuterol/Ipratropium (Duoneb 3.0-0.5 Mg/3 Ml) 3 ml NEB QID PRN PRN Reason: Shortness Of Breath/wheezing Docusate Sodium (Colace) 100 mg PO BID PRN PRN Reason: Constipation Levothyroxine Sodium (Levothyroxine) 112 mcg PO DAILY@0730 [facility] Last Admin: 01/06/18 07:50 Dose: 112 mcg Lorazepam (Ativan) 1 mg IV Q6H PRN PRN Reason: Nausea/Vomiting Melatonin (Melatonin) 6 mg PO BEDTIME PRN PRN Reason: Insomnia Estradiol [Climara] (0.06 Mg Patch (Ptom)) 0 mg TOP Q7D [facility] Verify Climira Patch 0 each TOP DAILY [facility] Last Admin: 01/06/18 09:32 Dose: Not Given Ondansetron HCl (Zofran Odt) 4 mg PO Q6H PRN PRN Reason: Nausea able to take PO Ondansetron HCl (Zofran) 4 mg IV Q4H PRN PRN Reason: Nausea/Vomiting Pantoprazole Sodium (Protonix) 40 mg PO ACBREAKFAST [facility] Last Admin: 01/06/18 07:50 Dose: 40 mg Potassium Chloride (Potassium Chloride Solution) 20 meq PO DAILY [facility] Last Admin: 01/06/18 09:31 Dose: 20 meq Thiamine HCl (Vitamin B-1) 100 mg PO DAILY [facility] Last Admin: 01/06/18 09:31 Dose: 100 mg Discontinued Medications Bacitracin (Bacitracin Oint 1 Gm) 2 dose TOP ONETIME ONE Stop: 01/05/18 10:21 Last Admin: 01/05/18 10:30 Dose: 2 dose Fentanyl (Sublimaze) 50 mcg IVPUSH ONETIME ONE Stop: 01/03/18 19:23 Last Admin: 01/03/18 19:44 Dose: 50 mcg Hydromorphone HCl (Dilaudid Plate Drying Machine Tender 15 Mg In Ns 30 Ml) 0 mg IV ASDIRECTED PRN; Protocol PRN Reason: Pain Last Admin: 01/05/18 08:15 Dose: 15 mg Sodium Chloride (Normal Saline) 1,000 mls @ 250 mls/hr IV ASDIRECTED [facility] Last Admin: 01/03/18 19:49 Dose: 250 mls/hr Lactated Ringer's (Ringers, Lactated) 1,000 mls @ 125 mls/hr IV ASDIRECTED [facility] Last Admin: 01/04/18 07:43 Dose: 125 mls/hr Lactated Ringer's (Ringers, Lactated) 1,000 mls @ 30 mls/hr IV ASDIRECTED [facility] Last Admin: 01/05/18 06:42 Dose: 30 mls/hr Lidocaine/Epinephrine (Xylocaine 1% With Epinephrine 1:100,000) 5 ml INJECT NOW STA Stop: 01/03/18 19:47 Last Admin: 01/03/18 19:49 Dose: 5 ml Naloxone HCl (Narcan) 0.4 mg IVPUSH Q2M PRN PRN Reason: Respiratory Distress Pantoprazole Sodium (Protonix Iv) 40 mg IVPUSH DAILY [facility] Last Admin: 01/04/18 09:37 Dose: 40 mg Prednisone (Prednisone) 7.5 mg PO BEDTIME [facility] Last Admin: 01/04/18 20:44 Dose: Not Given Zolpidem Tartrate (Ambien) 5 mg PO BEDTIME PRN PRN Reason: Sleep - Exam Quality Assessment: Reports: DVT Prophylaxis General: Reports: Alert, Oriented Lungs: Reports: Clear to Auscultation, Normal Respiratory Effort, Decreased Breath Sounds. Denies: Rales, Rhonchi, Wheezing Cardiovascular: Reports: Regular Rate, Regular Rhythm, No Murmurs GI/Abdominal Exam: Soft, Non-Tender, No Organomegaly, No Distention Extremities: Non-Tender, No Pedal Edema Skin: Reports: Warm, Dry
[2018-01-07] MEDS ORDERED: ESTRADIOL TOP SCH (09:00)
--- NOTE | 2018-01-08 08:55 | CR ---
Chest 2V INDICATION: Follow-up pneumothorax COMPARISON: 01/05/2018 FINDINGS: Two views. No pneumothorax seen. Lungs hyperinflated. Clearing of right basilar linear a telectasis. No pleural effusions. Fusion lower cervical spine. IMPRESSION: No pneumothorax. Hyperinflation.
== END 2018-01-06 12:20 | disposition home or self-care (01) | DRG 201 ==
LOC: JP.ED 17:06 → JP.MS 20:39
PROVIDERS: ADMIT Hospitalist; ATTEND Hospitalist
PROC: 0W9930Z Drainage of Right Pleural Cavity with Drainage Device, Percutaneous Approach (ICD-10-PCS; principal; 2018-01-03)
DX: J93.9 Pneumothorax, unspecified (principal); J44.9 Chronic obstructive pulmonary disease, unspecified; E03.9 Hypothyroidism, unspecified; Z87.891 Personal history of nicotine dependence; R06.02 Shortness of breath; K90.0 Celiac disease; Z98.84 Bariatric surgery status; Z98.1 Arthrodesis status; E53.8 Deficiency of other specified B group vitamins; Z85.038 Personal history of other malignant neoplasm of large intestine; Z85.820 Personal history of malignant melanoma of skin; M79.7 Fibromyalgia; M54.9 Dorsalgia, unspecified; G89.29 Other chronic pain; K21.9 Gastro-esophageal reflux disease without esophagitis; I25.2 Old myocardial infarction; H54.7 Unspecified visual loss; H91.90 Unspecified hearing loss, unspecified ear; Z79.52 Long term (current) use of systemic steroids; Z91.018 Allergy to other foods
CPT/HCPCS: 32556; 36415; 71045 ×2; 71046 ×2; 80053; 85025; 96361; 96374; 99285; J3010; J7040; 80048; 94762; 97162-GP; 97165-GO; 97530-GP; A9270-GY; C9113; J1170; J7120

== ENCOUNTER 2018-09-13 17:12 | Emergency (ER) | payer MEDICARE ==
[2018-09-13 17:41] VITALS: BP 190/98
--- NOTE | 2018-09-13 18:10 | EDM.PDOC ---
ED HPI GENERAL MEDICAL PROBLEM - General Chief Complaint: Neurological Problem Stated Complaint: VERTIGO FALLING Time Seen by Provider: 09/13/18 18:00 Source of Information: Reports: Patient History Limitations: Reports: No Limitations - History of Present Illness INITIAL COMMENTS - FREE TEXT/NARRATIVE: 77-year-old female who woke up from a nap 2 days ago with vertigo. It is been persistent ever since, she has a right-sided headache and has fallen twice because she is unstable. Persistent nausea but no vomiting. No fevers or chills , trauma, chest pain or shortness of breath. 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 No peripheral edema. Her headache is right-sided, extends from behind her right eye to the temporal and parietal area on the right side. No rashes. She has not had these symptoms in the past. Onset: Unknown/Unsure (Symptoms were present when she woke from a nap 2 days ago ) Duration: Day(s): (2 days) Worsens with: Reports: Movement Associated Symptoms: Reports: Malaise, Weakness, Other (Persistent nausea). Denies: Confusion, Chest Pain, Cough Right Head Pain Score (Numeric/FACES): 5 - Related Data Allergies Allergy/AdvReac Type Severity Reaction Status Date / Time food Allergy Cannot Uncoded 09/13/18 17:36 Remember Home Meds: Home Meds Cholecalciferol (Vitamin D3) [Vitamin D3] 1,000 unit PO DAILY 03/24/15 [History] Cyanocobalamin (Vitamin B-12) [Cyanocobalamin Injection] 1 ml IM .[id number] [History] Ergocalciferol (Vitamin D2) [Vitamin D2] 50,000 unit PO .2XWEEK 03/24/15 [ History] Estradiol [Climara] 0.06 mg TOP WEEKLY 03/24/15 [History] Levothyroxine 112 mcg PO DAILY 03/24/15 [History] Multivitamin [Flintstones] 1 tab PO BID 03/24/15 [History] Multivitamin/Ferrous Gluconate [Multi-Delyn with Iron Liquid] 20 ml PO DAILY [History] Omeprazole 40 mg PO DAILY 03/24/15 [History] Potassium Chloride 15 ml PO DAILY 03/24/15 [History] Thiamine [Vitamin B-1] 100 mg PO DAILY 03/24/15 [History] ZOLMitriptan [Zomig ZMT] 5 mg PO ASDIRECTED PRN 03/24/15 [History] Cyanocobalamin (Vitamin B-12) [Vitamin B-12] 1,000 mcg SL DAILY 03/22/17 [ History] Promethazine [Phenadoz] 25 mg RECTAL Q6H PRN 03/22/17 [History] predniSONE [Prednisone] 7.5 mg PO BEDTIME PRN 03/22/17 [History] HYDROcodone/Ibuprofen [Vicoprofen] 1 tab PO Q8H PRN 10/04/17 [History] Past Medical History HEENT History: Reports: Cataract, Hard of Hearing, Impaired Vision, Other (See Below) Other HEENT History: tinnitus left ear, menneires disease Cardiovascular History: Reports: Afib, AR Respiratory History: Reports: Other (See Below) Other Respiratory History: unknown lung problems for albuterol Pt stopped Gastrointestinal History: Reports: Celiac Disease, Chronic Diarrhea, Colon Polyp , GERD, Hemorrhoids, Hepatitis, Other (See Below) Other Gastrointestinal History: internal rectal restriction Genitourinary History: Reports: 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: Musculoskeletal History: Reports: Back Pain, Chronic, Fracture, Fibromyalgia, Neck Pain, Chronic, Osteoarthritis Other Musculoskeletal History: degenerative disc disease, fractured left small finger, fractured right foot, chronic neck and shoulder pain Neurological History: Reports: Concussion, Head Trauma, Migraines, Vertigo, Other (See Below) Other Neuro History: Mineres Psychiatric History: Reports: Anxiety, Depression, PTSD, Other (See Below) Other Psychiatric History: 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 Endocrine/Metabolic History: Reports: Hypothyroidism, Osteopenia, Vitamin D Deficiency, Other (See Below) Other Endocrine/Metabolic History: Isidro disease Hematologic History: Reports: Anemia, B12 Deficiency, Folic Acid, Iron Deficiency Immunologic History: Reports: None Oncologic (Cancer) History: Reports: Colon, Malignant Melanoma Dermatologic History: Reports: Melanoma Other Dermatologic History: skin CA 2005 - Infectious Disease History Infectious Disease History: Reports: Chicken Pox, Measles, Mumps, Shingles - Past Surgical History Head Surgeries/Procedures: Reports: None HEENT Surgical History: Reports: Cataract Surgery, Tonsillectomy, Other (See Below) Other HEENT Surgeries/Procedures: eye lenses implants Cardiovascular Surgical History: Reports: None Respiratory Surgical History: Reports: None GI Surgical History: Reports: Appendectomy, Bariatric Procedure, Cholecystectomy , Colon, Colonoscopy, EGD, Other (See Below) Other GI Surgeries/Procedures: surgical procedure x 5 to remove excess lining of rectum, hemorrhoidectomy, panniculectomy, colon resection Female Surgical History: Reports: Breast Biopsy, Cystoscopy, Hysterectomy, Kidney stone extraction, Tubal Ligation, Other (See Below) Other Female Surgeries/Procedures: bilat breast cysts removed Endocrine Surgical History: Reports: None Neurological Surgical History: Reports: C-Spine, Other (See Below) Other Neurological Surgeries/Procedures: fusion C5-C6, Chiari I surgery plate and screws Musculoskeletal Surgical History: Reports: Carpal Tunnel Oncologic Surgical History: Reports: None Dermatological Surgical History: Reports: Skin Biopsy Social & Family History - Family History Family Medical History: Noncontributory - Tobacco Use Smoking Status *Q: Former Smoker Used Tobacco, but Quit: Yes Month/Year Tobacco Last Used: 2003 - Caffeine Use Caffeine Use: Reports: Coffee Caffeine Use Comment: 1 cups per day - Recreational Drug Use Recreational Drug Use: No - Living Situation & Occupation Living situation: Reports: ([facility], retired, 2 adult children, not currently involved with her children. Son lives in [place], and daughter lives in [place].) ED ROS GENERAL - Review of Systems Review Of Systems: See Below Constitutional: Denies: Fever, Chills HEENT: Reports: Other (Intermittent mild blurriness) Respiratory: Denies: Shortness of Breath, Cough Cardiovascular: Denies: Chest Pain, Palpitations Endocrine: Reports: Fatigue GI/Abdominal: Reports: Nausea. Denies: Abdominal Pain, Vomiting : Reports: No Symptoms Skin: Reports: No Symptoms Neurological: Reports: Headache, Other (Persistent vertigo) ED EXAM, NEURO - Physical Exam Exam: See Below Exam Limited By: No Limitations General Appearance: Alert, No Apparent Distress (Looks uncomfortable but not distressed) Eye Exam: Bilateral Eye: EOMI (She has no nystagmus either direction) Ears: Normal TMs Head Exam: Atraumatic Neck: Supple Respiratory/Chest: No Respiratory Distress, Lungs Clear Cardiovascular: Regular Rate, Rhythm GI/Abdominal: Soft, Non-Tender Neurological: Alert, No Motor/Sensory Deficits, Oriented x 3 Extremities: No: Pedal Edema Psychiatric: Flat Affect Skin Exam: Warm, Dry Course - Vital Signs Last Recorded V/S: Last Vital Signs Temp 94.7 F L 09/13/18 17:41 Pulse 89 09/13/18 17:41 Resp 16 09/13/18 17:41 BP 190/98 H 09/13/18 17:41 Pulse Ox 97 09/13/18 17:41 - Orders/Labs/Meds Orders: Active Orders 24 hr Category Date Time Status Head wo Cont [CT] Stat Exams 09/13/18 18:05 Taken Labs: Laboratory Tests 09/13/18 09/13/18 Range/Units 18:29 18:29 WBC 6.9 (4.5-11.0) K/uL RBC 4.32 (3.30-5.50) M/uL Hgb 13.0 (12.0-15.0) g/dL Hct 41.1 (36.0-48.0) % MCV 95 (80-98) fL MCH 30 (27-31) pg MCHC 32 (32-36) % Plt Count 305 (150-400) K/uL Neut % (Auto) 48 (36-66) % Lymph % (Auto) 39 (24-44) % [place] % (Auto) 10 H (2-6) % Eos % (Auto) 3 (2-4) % Baso % (Auto) 0 (0-1) % Sodium 145 (140-148) mmol/L Potassium 4.0 (3.6-5.2) mmol/L Chloride 107 (100-108) mmol/L Carbon Dioxide 32 (21-32) mmol/L Anion Gap 6.5 (5.0-14.0) mmol/L BUN 9 (7-18) mg/dL Creatinine 0.8 (0.6-1.0) mg/dL Est Cr Clr Drug Dosing 53.98 mL/min Estimated GFR (MDRD) > 60 (>60) Glucose 120 H (74-106) mg/dL Calcium 8.9 (8.5-10.1) mg/dL Total Bilirubin 0.4 (0.2-1.0) mg/dL AST 24 (15-37) U/L ALT 26 (12-78) U/L Alkaline Phosphatase 96 (46-116) U/L Total Protein 6.5 (6.4-8.2) g/dL Albumin 3.0 L (3.4-5.0) g/dL Globulin 3.5 (2.3-3.5) g/dL Albumin/Globulin Ratio 0.9 L (1.2-2.2) Meds: Medications Discontinued Medications Generic Name Dose Route Start Last Admin Trade Name Harrison PRN Reason Stop Dose Admin Lactated Ringer's 1,000 mls @ 1,000 mls/hr 09/13/18 18:30 09/13/18 18:46 Ringers, Lactated IV 1,000 mls/hr ASDIRECTED PREET Administration Meclizine HCl 25 mg 09/13/18 19:14 09/13/18 19:19 Antivert PO 09/13/18 19:15 25 mg ONETIME ONE Administration - Re-Assessments/Exams Free Text/Narrative Re-Assessment/Exam: 09/13/18 18:[address] without contrast will be obtained, followed by 1 L bolus of lactated Ringer, CBC and CMP. 09/13/18 19:[address] was normal, CBC normal. Patient was feeling improved after some fluids. She asked for some coffee. He CMP returned normal other than a glucose of 120. She was given one oral dose of meclizine 25 mg, given the rest of the liter of lactated Ringer's and a prescription for additional meclizine to take over the next several days if it is effective. She can always return if worsening or concerns. 09/13/18 20:17 Patient was observed leaving the emergency room, walking under her own power, very stable and appeared to be having no significant symptoms. Departure - Departure Time of Disposition: 19:31 Disposition: Home, Self-Care 01 Condition: Good Clinical Impression: Acute vestibular neuritis Qualifiers: Laterality: unspecified laterality Qualified Code(s): H81.20 - Vestibular neuronitis, unspecified ear - Discharge Information Instructions: Meclizine tablets or capsules, Vertigo, [id number] Referrals: Elizabeth Thorne PA [Primary Care Provider] - Forms: ED Department Discharge Care Plan Goals: Continue your current medications, use meclizine as directed for dizziness or vertigo and increase activity as tolerated. Consider rechecking in 2-3 days if not improving satisfactorily or return anytime sooner if worsening or concerns. - My Orders Last 24 Hours: My Active Orders 09/13/18 18:05 Head wo Cont [CT] Stat - Assessment/Plan Last 24 Hours: My Active Orders 09/13/18 18:05 Head wo Cont [CT] Stat
[2018-09-13] MEDS ORDERED: Lactated Ringers 1,000 ML IV SCH (18:30)
[2018-09-13] MEDS ORDERED: Meclizine 25 MG Tab PO ONE (19:14)
== END 2018-09-13 20:01 | disposition home or self-care (01) ==
LOC: JP.ED 17:12
DX: H81.20 Vestibular neuronitis, unspecified ear (principal); I48.91 Unspecified atrial fibrillation; I25.2 Old myocardial infarction; F41.9 Anxiety disorder, unspecified; F32.9 Major depressive disorder, single episode, unspecified; K21.9 Gastro-esophageal reflux disease without esophagitis; Z79.899 Other long term (current) drug therapy; Z87.891 Personal history of nicotine dependence; Z91.018 Allergy to other foods
CPT/HCPCS: 36415; 70450; 80053; 85025; 96360; 99284; A9270; J7120

== ENCOUNTER 2019-02-14 08:02 | Day surgery (SDC) | payer MEDICARE ==
[~2019-02-14 08:02] MED LIST: Lidocaine 1% with EPINEPHrine 1:100,000 50 ML MDV ONE; Sodium Chloride 0.9% 10 ML ONE; Sodium Tetradecyl Sulfate 1% 20 MG/2 ML SDV ONE
[2019-02-14] MEDS ORDERED: Midazolam 1 MG/ML 2 ML SDV ONE (08:04)
[2019-02-14] MEDS ORDERED: fentaNYL 100 MCG/2 ML SDV ONE (08:04)
[2019-02-14] MEDS ORDERED: Propofol 200 MG/20 ML SDV ONE (08:04)
[2019-02-14] MEDS ORDERED: Sodium Chloride 0.9% 1,000 ML IV SCH (08:45)
[2019-02-14] MEDS: Lidocaine 1% w/EPINEPHrine 50 ML, Sodium Bicarbonate 5 MEQ in Sodium Chloride 0.9% 950 ML INJECT ONE ×2 (08:58→09:40)
[2019-02-14 13:36] VITALS: BP 140/89
--- NOTE | 2019-02-14 15:19 | OR ---
DATE OF PROCEDURE: 02/14/2019 SURGEON: Duke Griffiths MD PROCEDURES: 1. Radiofrequency ablation of left lesser saphenous vein. 2. Aspiration, Peralta's cyst, left leg. 3. Aspiration, Peralta's cyst, right leg. 4. Compression wrapping of left leg ([id number]). 5. Sclerotherapy, left leg, multiple. COMPLICATIONS: None. PRIVACY ANALYST: None. PREOPERATIVE DIAGNOSES: Venous insufficiency with inflammation and pain, and painful Peralta's cysts. POSTOPERATIVE DIAGNOSES: Venous insufficiency with inflammation and pain, and painful Peralta's cysts. RISKS: Risks, benefits, alternatives, and limitations including, but not limited to infection, bleeding, and DVT formation were explained for both procedures. PROCEDURE IN DETAIL: The patient was placed in prone position. LSV was accessed at the level a little bit superior to the ankle using a 21-gauge needle, then exchanged for a 7- Pashto sheath via a 35,000th wire. The RFA probe was advanced to greater than 3 cm from the saphenofemoral junction. Tumescent fluid was injected in a 1-cm jacket around this and verified a second and a third time. Direct even pressure was held as the probe was deployed x2 proximally and distally, and x1 in all other segments. Sheath and device were then removed. Direct pressure was held for 10 minutes. Dermabond was applied. Aspirations of the Peralta's cysts were performed using an 18-gauge needle, using 1% lidocaine as an anesthetizing agent. 25 mL was aspirated on the left and 20 mL was aspirated on the right. Direct pressure was held and dressings were applied. Sclerotherapy was then performed of left leg using 0.33% sodium tetradecyl, drawn back to ensure intravascular injection only, and there were 5 on the left leg. These ranged in length from 1 to 6 cm. Compression wrapping was then performed in a [id number] gradient using 20 mmHg pressure gradient. This was in [id number] fashion. Duke Griffiths MD /[id number]
== END 2019-02-14 13:38 | disposition home or self-care (01) ==
LOC: JP.SDS 08:02
PROVIDERS: ATTEND Surgery
DX: I83.12 Varicose veins of left lower extremity with inflammation (principal); M71.22 Synovial cyst of popliteal space [Baker], left knee; M71.21 Synovial cyst of popliteal space [Baker], right knee; E03.9 Hypothyroidism, unspecified; Z91.018 Allergy to other foods; Z90.49 Acquired absence of other specified parts of digestive tract; Z98.84 Bariatric surgery status; Z87.891 Personal history of nicotine dependence; Z85.038 Personal history of other malignant neoplasm of large intestine; Z79.899 Other long term (current) drug therapy
CPT/HCPCS: 76998; J1642; J2250; J2704; J3010; J3490; J7030

== ENCOUNTER 2019-03-12 12:51 | Emergency (ER) | payer MEDICARE ==
[2019-03-12] MEDS ORDERED: Aspirin 81 MG Tab.Chew PO ONE (13:23)
[2019-03-12] MEDS ORDERED: fentaNYL 100 MCG/2 ML SDV IVPUSH ONE (13:24)
--- NOTE | 2019-03-12 13:27 | EDM.PDOC ---
ED HPI GENERAL MEDICAL PROBLEM - General Chief Complaint: Chest Pain Stated Complaint: CHEST PAINS Time Seen by Provider: 03/12/19 13:16 Source of Information: Reports: Patient, Old Records, RN Notes Reviewed History Limitations: Reports: No Limitations - History of Present Illness INITIAL COMMENTS - FREE TEXT/NARRATIVE: -78-year-old female presents to the emergency department today complaint of chest pain, she has had chest pain over the last 48 hours she describes it as sharp stabbing over the left side of her chest it will come and go approximately every 3-4 minutes and lasts less than 10 seconds rates the pain 8 out of 10 results to 0 out of 10. She states she does have a cardiac history with myocardial infarction in the past and has had lots of testing done. She has no shortness of breath beyond baseline no nausea vomiting no diaphoresis - Related Data Allergies Allergy/AdvReac Type Severity Reaction Status Date / Time morphine AdvReac Headache Verified 03/12/19 13:03 food Allergy Cannot Uncoded 02/14/19 08:59 Remember Home Meds: Home Meds Cholecalciferol (Vitamin D3) [Vitamin D3] 1,000 unit PO DAILY 03/24/15 [History] Cyanocobalamin (Vitamin B-12) [Cyanocobalamin Injection] 1 ml IM .[id number] [History] Ergocalciferol (Vitamin D2) [Vitamin D2] 50,000 unit PO .2XWEEK 03/24/15 [ History] Estradiol [Climara] 0.06 mg TOP WEEKLY 03/24/15 [History] Levothyroxine 112 mcg PO DAILY 03/24/15 [History] Multivitamin [Flintstones] 1 tab PO BID 03/24/15 [History] Multivitamin/Ferrous Gluconate [Multi-Delyn with Iron Liquid] 20 ml PO DAILY [History] Omeprazole 40 mg PO DAILY PRN 03/24/15 [History] Potassium Chloride 15 ml PO DAILY 03/24/15 [History] Thiamine [Vitamin B-1] 100 mg PO DAILY 03/24/15 [History] ZOLMitriptan [Zomig ZMT] 5 mg PO ASDIRECTED PRN 03/24/15 [History] Cyanocobalamin (Vitamin B-12) [Vitamin B-12] 1,000 mcg SL DAILY 03/22/17 [ History] Promethazine [Phenadoz] 25 mg RECTAL Q6H PRN 03/22/17 [History] predniSONE [Prednisone] 7.5 mg PO BEDTIME PRN 03/22/17 [History] HYDROcodone/Ibuprofen [Vicoprofen] 1 tab PO Q8H PRN 10/04/17 [History] Diphenoxylate HCl/Atropine [Lomotil] 1 tab PO QID PRN 10/31/18 [History] Ranitidine HCl [Ranitidine] 300 mg PO DAILY 10/31/18 [History] Past Medical History HEENT History: Reports: Cataract, Hard of Hearing, Impaired Vision, Other (See Below) Other HEENT History: tinnitus left ear, menneires disease Cardiovascular History: Reports: Afib, CAD, AL Other Cardiovascular History: AL from electrolyte imbalance Respiratory History: Reports: Other (See Below) Other Respiratory History: unknown lung problems for albuterol Pt stopped Gastrointestinal History: Reports: Celiac Disease, Chronic Diarrhea, Colon Polyp , GERD, Hemorrhoids, Hepatitis, Other (See Below) Other Gastrointestinal History: internal rectal restriction Genitourinary History: Reports: Renal Calculus 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 Right knee meniscal tear. 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 Endocrine/Metabolic History: Reports: Hypothyroidism, Osteopenia, Vitamin D Deficiency, Other (See Below) Other Endocrine/Metabolic History: Isidro disease Hematologic History: Reports: Anemia, B12 Deficiency, Blood Transfusion(s), Folic Acid, Iron Deficiency Immunologic History: Reports: None Oncologic (Cancer) History: Reports: Colon, Malignant Melanoma Dermatologic History: Reports: Melanoma Other Dermatologic History: skin CA 2005 - Infectious Disease History Infectious Disease History: Reports: Chicken Pox, Measles, Mumps, Shingles - Past Surgical History Head Surgeries/Procedures: Reports: None HEENT Surgical History: Reports: Cataract Surgery, Tonsillectomy, Other (See Below) Other HEENT Surgeries/Procedures: eye lenses implants Cardiovascular Surgical History: Reports: None Respiratory Surgical History: Reports: None GI Surgical History: Reports: Appendectomy, Bariatric Procedure, Cholecystectomy , Colon, Colonoscopy, EGD, Other (See Below) Other GI Surgeries/Procedures: surgical procedure x 5 to remove excess lining of rectum, hemorrhoidectomy, panniculectomy, colon resection Female Surgical History: Reports: Breast Biopsy, Cystoscopy, Hysterectomy, Kidney stone extraction, Tubal Ligation, Other (See Below) Other Female Surgeries/Procedures: bilat breast cysts removed Endocrine Surgical History: Reports: None Neurological Surgical History: Reports: C-Spine, Other (See Below) Other Neurological Surgeries/Procedures: fusion C5-C6, Chiari I surgery plate and screws Oncologic Surgical History: Reports: None Dermatological Surgical History: Reports: Skin Biopsy Social & Family History - Family History Family Medical History: Noncontributory - Tobacco Use Smoking Status *Q: Never Smoker - Caffeine Use Caffeine Use: Reports: Coffee Caffeine Use Comment: 1 cups per day - Recreational Drug Use Recreational Drug Use: No - Living Situation & Occupation Living situation: Reports: ([facility], retired, 2 adult children, not currently involved with her children. Son lives in [place], and daughter lives in [place].) ED ROS GENERAL - Review of Systems Review Of Systems: See Below Constitutional: Denies: Diaphoresis HEENT: Reports: No Symptoms Respiratory: Reports: No Symptoms Cardiovascular: Reports: Chest Pain GI/Abdominal: Reports: No Symptoms : Reports: No Symptoms Musculoskeletal: Reports: No Symptoms Skin: Reports: No Symptoms ED EXAM, GENERAL - Physical Exam Exam: See Below Exam Limited By: No Limitations General Appearance: Alert, WD/WN, No Apparent Distress Head: Atraumatic, Normocephalic Neck: Normal Inspection, Supple, Non-Tender, Full Range of Motion Respiratory/Chest: No Respiratory Distress, Lungs Clear, Normal Breath Sounds, No Accessory Muscle Use, Chest Non-Tender Cardiovascular: Regular Rate, Rhythm, No Murmur GI/Abdominal: Soft, Non-Tender Course - Vital Signs Last Recorded V/S: Last Vital Signs Temp 97.2 F 03/12/19 13:20 Pulse 77 03/12/19 14:30 Resp 15 03/12/19 14:30 BP 152/81 H 03/12/19 14:30 Pulse Ox 98 03/12/19 13:20 - Orders/Labs/Meds Orders: Active Orders 24 hr Category Date Time Status Cardiac Monitoring [RC] .As Directed Care 03/12/19 13:23 Active EKG Documentation Completion [RC] ASDIRECTED Care 03/12/19 13:24 Active MVI, Adult with Vitamin K [Infuvite Adult] 10 ml Med 03/12/19 13:30 Active Magnesium Sulfate [Magnesium Sulfate 50%] 2 gm Folic Acid 1 mg Thiamine [Vitamin B-1] 100 mg Lactated Ringers [Ringers, Lactated] 1,000 ml IV ONETIME EKG 12 Lead [EK] Stat Ther 03/12/19 13:24 Ordered Medication Orders Multivitamins/Minerals 10 ml/Magnesium Sulfate 2 gm/ Folic Acid 1 mg/ Thiamine HCl 100 mg / Lactated Ringer's 1,015.2 mls @ 507.6 mls/hr IV ONETIME ONE Stop: 03/12/19 15:29 Last Admin: 03/12/19 14:04 Dose: 507.6 mls/hr Labs: Laboratory Tests 03/12/19 03/12/19 Range/Units 13:38 13:38 WBC 12.8 H (4.5-11.0) K/uL RBC 4.30 (3.30-5.50) M/uL Hgb 13.7 (12.0-15.0) g/dL Hct 43.4 (36.0-48.0) % MCV 101 H (80-98) fL MCH 32 H (27-31) pg MCHC 32 (32-36) % Plt Count 284 (150-400) K/uL Neut % (Auto) 76 H (36-66) % Lymph % (Auto) 18 L (24-44) % [place] % (Auto) 5 (2-6) % Eos % (Auto) 1 L (2-4) % Baso % (Auto) 0 (0-1) % Sodium 140 (140-148) mmol/L Potassium 5.2 (3.6-5.2) mmol/L Chloride 107 (100-108) mmol/L Carbon Dioxide 29 (21-32) mmol/L Anion Gap 4.3 L (5.0-14.0) mmol/L BUN 18 D (7-18) mg/dL Creatinine 1.0 (0.6-1.0) mg/dL Est Cr Clr Drug Dosing 41.83 mL/min Estimated GFR (MDRD) 54 L (>60) Glucose 106 (74-106) mg/dL Calcium 8.8 (8.5-10.1) mg/dL Total Bilirubin 0.3 (0.2-1.0) mg/dL AST 28 (15-37) U/L ALT 29 (12-78) U/L Alkaline Phosphatase 106 (46-116) U/L Troponin I < 0.017 (0.000-0.056) ng/mL Total Protein 6.5 (6.4-8.2) g/dL Albumin 3.1 L (3.4-5.0) g/dL Globulin 3.4 (2.3-3.5) g/dL Albumin/Globulin Ratio 0.9 L (1.2-2.2) Meds: Medications Generic Name Dose Route Start Last Admin Trade Name Freq PRN Reason Stop Dose Admin Multivitamins/Minerals 10 ml/ 1,015.2 mls @ 507.6 mls/hr 03/12/19 13:30 03/12 14:04 Magnesium Sulfate 2 gm/ Folic IV 03/12/19 15:29 507.6 mls/hr Acid 1 mg/ Thiamine HCl 100 mg ONETIME ONE Administration / Lactated Ringer's Discontinued Medications Generic Name Dose Route Start Last Admin Trade Name Freq PRN Reason Stop Dose Admin Aspirin 324 mg 03/12/19 13:23 03/12/19 13:40 Aspirin PO 03/12/19 13:24 324 mg ONETIME ONE Administration Fentanyl 50 mcg 03/12/19 13:24 03/12/19 13:41 Sublimaze IVPUSH 03/12/19 13:25 50 mcg ONETIME ONE Administration Departure - Departure Time of Disposition: 15:12 Disposition: Home, Self-Care 01 Condition: Fair Clinical Impression: Atypical chest pain Referrals: PCP,None [Primary Care Provider] - Forms: ED Department Discharge Additional Instructions: Continue regular medications, Please followup with your primary care provider in 3-5 days if not better, please call return to the emergency department with worsening of symptoms. - My Orders Last 24 Hours: My Active Orders 03/12/19 13:23 Cardiac Monitoring [RC] .As Directed 03/12/19 13:24 EKG Documentation Completion [RC] ASDIRECTED EKG 12 Lead [EK] Stat - Assessment/Plan Last 24 Hours: My Active Orders 03/12/19 13:23 Cardiac Monitoring [RC] .As Directed 03/12/19 13:24 EKG Documentation Completion [RC] ASDIRECTED EKG 12 Lead [EK] Stat Plan: Assessment Acuity = acute Site and laterality = atypical chest pain Etiology = unclear etiology Manifestations = none Location of injury = Home Lab values =CBC, CMP, troponin, EKG, chest x-ray all within normal limits no acute process Plan She good relief with fentanyl provided, her follow-up with her primary care in 3 -5 days for further evaluation This note was dictated using [employer]ozu voice recognition software please call with any questions on syntax or grammar.
[2019-03-12] MEDS ORDERED: MVI, Adult with Vitamin K 10 ML, Magnesium Sulfate 2 GM, Folic Acid 1 MG, Thiamine 100 ... IV ONE ×5 (13:30)
--- NOTE | 2019-03-12 14:52 | CRLCR ---
Final Report: INDICATION: CHEST PAIN SENT PRIORS FROM 15 MONTHS AGO HISTORY: Chest pain. COMPARISON: 01/06/2018. TECHNIQUE: Chest, 2 views. FINDINGS: There is diffuse pulmonary hyperinflation. engine monitor leads overlie the patient. There is no acute airspace disease or pneumothorax. The central airway is normal. The osseous structures are intact. Bowel gas pattern is normal in the upper abdomen. There is an increased AP diameter of the chest on the lateral radiograph. Degenerative disc disease in the thoracic spine. IMPRESSION: 1. Diffuse pulmonary hyperinflation. 2. No acute airspace disease. Dictated by Duke Fournier MD @ 03/12/2019 2:32:25 PM Dictated by: Duke Fournier MD @ 03/12/2019 14:32:30 (Electronic Signature) MTDD
[2019-03-12 14:57] VITALS: BP 152/81; PULSE 77
== END 2019-03-12 15:48 | disposition home or self-care (01) ==
LOC: JP.ED 12:51
DX: R07.89 Other chest pain (principal); I48.91 Unspecified atrial fibrillation; I25.10 Atherosclerotic heart disease of native coronary artery without angina pectoris; I25.2 Old myocardial infarction; F41.9 Anxiety disorder, unspecified; F32.9 Major depressive disorder, single episode, unspecified; Z88.8 Allergy status to other drugs, medicaments and biological substances; Z88.5 Allergy status to narcotic agent; Z91.02 Food additives allergy status; Z79.899 Other long term (current) drug therapy
CPT/HCPCS: 36415; 71046; 80053; 84484; 85025; 93005; 93010; 96365; 96366; 96375; 99285; A9270; J3010; J3411; J3475; J7120; J3490

== ENCOUNTER 2019-06-05 12:49 | Emergency (ER) | payer MEDICARE ==
[2019-06-05] MEDS ORDERED: fentaNYL 100 MCG/2 ML SDV NASBOTH ONE (13:17)
--- NOTE | 2019-06-05 13:22 | EDM.PDOC ---
ED HPI GENERAL MEDICAL PROBLEM - General Chief Complaint: Respiratory Problem Stated Complaint: TROUBLE BREATHING Time Seen by Provider: 06/05/19 13:12 Source of Information: Reports: Patient, Family, RN Notes Reviewed History Limitations: Reports: No Limitations - History of Present Illness INITIAL COMMENTS - FREE TEXT/NARRATIVE: 78-year-old female presents to the emergency department today complaint of chest pain and shortness of breath, she recently underwent trigger point thoracic injections for pain, does have a known history of coronary artery disease. She states she had the injections earlier this morning felt short of breath after the procedure was on her way home with breathing got more difficult. She presents the emergency department for further evaluation Chest Pain Score (Numeric/FACES): 6 - Related Data Allergies Allergy/AdvReac Type Severity Reaction Status Date / Time gluten Allergy Abdominal Verified 06/05/19 13:08 Pain morphine AdvReac Headache Verified 06/05/19 13:08 SPICES Allergy Abdominal Uncoded 06/05/19 10:08 Pain Home Meds: Home Meds Cholecalciferol (Vitamin D3) [Vitamin D3] 1,000 unit PO DAILY 03/24/15 [History] Cyanocobalamin (Vitamin B-12) [Cyanocobalamin Injection] 1 ml IM .[id number] [History] Ergocalciferol (Vitamin D2) [Vitamin D2] 50,000 unit PO .2XWEEK 03/24/15 [ History] Estradiol [Climara] 0.06 mg TOP WEEKLY 03/24/15 [History] Levothyroxine 112 mcg PO DAILY 03/24/15 [History] Multivitamin [Flintstones] 1 tab PO BID 03/24/15 [History] Multivitamin/Ferrous Gluconate [Multi-Delyn with Iron Liquid] 20 ml PO DAILY [History] Omeprazole 40 mg PO DAILY PRN 03/24/15 [History] Potassium Chloride 15 ml PO DAILY 03/24/15 [History] Thiamine [Vitamin B-1] 100 mg PO DAILY 03/24/15 [History] ZOLMitriptan [Zomig ZMT] 5 mg PO ASDIRECTED PRN 03/24/15 [History] Cyanocobalamin (Vitamin B-12) [Vitamin B-12] 1,000 mcg SL DAILY 03/22/17 [ History] Promethazine [Phenadoz] 25 mg RECTAL Q6H PRN 03/22/17 [History] predniSONE [Prednisone] 7.5 mg PO BEDTIME PRN 03/22/17 [History] HYDROcodone/Ibuprofen [Vicoprofen] 1 tab PO Q8H PRN 10/04/17 [History] Diphenoxylate HCl/Atropine [Lomotil] 1 tab PO QID PRN 10/31/18 [History] Ranitidine HCl [Ranitidine] 300 mg PO DAILY 10/31/18 [History] Past Medical History HEENT History: Reports: Cataract, Hard of Hearing, Impaired Vision, Other (See Below) Other HEENT History: tinnitus left ear, menneires disease Cardiovascular History: Reports: Afib, CAD, OR Other Cardiovascular History: OR from electrolyte imbalance Respiratory History: Reports: Other (See Below) Other Respiratory History: unknown lung problems for albuterol Pt stopped Gastrointestinal History: Reports: Celiac Disease, Chronic Diarrhea, Colon Polyp , GERD, Hemorrhoids, Hepatitis, Other (See Below) Other Gastrointestinal History: internal rectal restriction Genitourinary History: Reports: Renal Calculus [employer]UC[employer]ER[employer] TE[employer]ER History: Reports: Musculoskeletal History: Reports: Back Pain, Chronic, Fracture, Fibromyalgia, Neck Pain, Chronic, Osteoarthritis, Other (See Below) Other Musculoskeletal History: degenerative disc disease, fractured left small finger, fractured right foot, chronic neck and shoulder pain. Right knee meniscal tear. 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 Endocrine/Metabolic History: Reports: Hypothyroidism, Osteopenia, Vitamin D Deficiency, Other (See Below) Other Endocrine/Metabolic History: Isidro disease Hematologic History: Reports: Anemia, B12 Deficiency, Blood Transfusion(s), Folic Acid, Iron Deficiency Immunologic History: Reports: None Oncologic (Cancer) History: Reports: Colon, Malignant Melanoma Dermatologic History: Reports: Melanoma Other Dermatologic History: skin CA 2005 - Infectious Disease History Infectious Disease History: Reports: Chicken Pox, Measles, Mumps, Shingles - Past Surgical History Head Surgeries/Procedures: Reports: None HEENT Surgical History: Reports: Cataract Surgery, Tonsillectomy, Other (See Below) Other HEENT Surgeries/Procedures: eye lenses implants Cardiovascular Surgical History: Reports: None GI Surgical History: Reports: Appendectomy, Bariatric Procedure, Cholecystectomy , Colon, Colonoscopy, EGD, Other (See Below) Other GI Surgeries/Procedures: surgical procedure x 5 to remove excess lining of rectum, hemorrhoidectomy, panniculectomy, colon resection Female Surgical History: Reports: Breast Biopsy, Cystoscopy, Hysterectomy, Kidney stone extraction, Tubal Ligation, Other (See Below) Other Female Surgeries/Procedures: bilat breast cysts removed Neurological Surgical History: Reports: C-Spine, Other (See Below) Other Neurological Surgeries/Procedures: fusion C5-C6, Chiari I surgery plate and screws Dermatological Surgical History: Reports: Skin Biopsy Social & Family History - Family History Family Medical History: Noncontributory - Tobacco Use Smoking Status *Q: Never Smoker - Caffeine Use Caffeine Use: Reports: Coffee Caffeine Use Comment: 1 cups per day - Recreational Drug Use Recreational Drug Use: No - Living Situation & Occupation Living situation: Reports: (Lives [address] in [facility], retired, 2 adult children, not currently involved with her children. Son lives in [place], and daughter lives in [place].) ED ROS GENERAL - Review of Systems Review Of Systems: See Below Constitutional: Reports: No Symptoms HEENT: Reports: No Symptoms Respiratory: Reports: Shortness of Breath. Denies: Cough, Sputum Cardiovascular: Reports: Chest Pain, Dyspnea on Exertion GI/Abdominal: Reports: No Symptoms ED EXAM, GENERAL - Physical Exam Exam: See Below Exam Limited By: No Limitations General Appearance: Alert, WD/WN, No Apparent Distress Respiratory/Chest: No Respiratory Distress, Lungs Clear, Normal Breath Sounds, No Accessory Muscle Use, Other (Tenderness to palpation anterior chest left and right) Cardiovascular: Regular Rate, Rhythm, No Murmur Course - Vital Signs Last Recorded V/S: Last Vital Signs Temp 97.9 F 06/05/19 13:06 Pulse 83 06/05/19 13:54 Resp 17 06/05/19 13:54 BP 140/85 06/05/19 13:54 Pulse Ox 96 06/05/19 13:54 - Orders/Labs/Meds Orders: Active Orders 24 hr Category Date Time Status Cardiac Monitoring [RC] .As Directed Care 06/05/19 13:16 Active Cardiac Monitoring [RC] STAT Care 06/05/19 15:12 Ordered Communication Order [RC] Per Unit Routine Care 06/05/19 15:12 Ordered Communication Order [RC] Per Unit Routine Care 06/05/19 15:12 Ordered EKG Documentation Completion [RC] ASDIRECTED Care 06/05/19 13:17 Active Peripheral IV Care [RC] . DIRECTED Care 06/05/19 15:13 Ordered INR,PT,PROTHROMBIN TIME [COAG] Stat Lab 06/05/19 15:12 Ordered PTT,PARTIAL THROMBOPLSTIN TIME [COAG] Stat Lab 06/05/19 15:12 Ordered Heparin Sodium/D5W [Heparin 25,000 Units in D5W 500 ML] Med 06/05/19 15:15 Ordered 25,000 units in 500 ml IV TITRATE Nitroglycerin [Nitrostat] Med 06/05/19 15:26 Ordered 0.4 mg SL Q5M PRN Sodium Chloride 0.9% [Saline Flush] Med 06/05/19 15:12 Ordered 10 ml FLUSH ASDIRECTED PRN Peripheral IV Insertion Adult [OM.PC] Stat Oth 06/05/19 15:12 Ordered EKG 12 Lead [EK] Stat Ther 06/05/19 13:17 Ordered Medication Orders Heparin Sodium/Dextrose (Heparin 25,000 Units In D5w 500 Ml) 25,000 units in 500 mls @ 625.956 mls/hr IV TITRATE PREET; Protocol Nitroglycerin (Nitrostat) 0.4 mg SL Q5M PRN PRN Reason: Chest Pain Sodium Chloride (Saline Flush) 10 ml FLUSH ASDIRECTED PRN PRN Reason: Keep Vein Open Labs: Laboratory Tests 06/05/19 06/05/19 06/05/19 Range/Units 13:25 13:25 14:36 WBC 10.7 (4.5-11.0) K/uL RBC 4.75 (3.30-5.50) M/uL Hgb 15.2 H (12.0-15.0) g/dL Hct 48.0 (36.0-48.0) % MCV 101 H (80-98) fL MCH 32 H (27-31) pg MCHC 32 (32-36) % Plt Count 326 (150-400) K/uL Neut % (Auto) 62 (36-66) % Lymph % (Auto) 29 (24-44) % [place] % (Auto) 7 H (2-6) % Eos % (Auto) 1 L (2-4) % Baso % (Auto) 0 (0-1) % Sodium 142 (140-148) mmol/L Potassium 4.5 (3.6-5.2) mmol/L Chloride 105 (100-108) mmol/L Carbon Dioxide 31 (21-32) mmol/L Anion Gap 5.8 (5.0-14.0) mmol/L BUN 12 (7-18) mg/dL Creatinine 0.8 (0.6-1.0) mg/dL Est Cr Clr Drug Dosing 48.50 mL/min Estimated GFR (MDRD) > 60 (>60) Glucose 109 H (74-106) mg/dL Calcium 9.3 (8.5-10.1) mg/dL Total Bilirubin 0.6 D (0.2-1.0) mg/dL AST 25 (15-37) U/L ALT 37 (12-78) U/L Alkaline Phosphatase 97 (46-116) U/L Troponin I 0.066 H* 0.322 H* (0.000-0.056) ng/mL Total Protein 7.2 (6.4-8.2) g/dL Albumin 3.6 (3.4-5.0) g/dL Globulin 3.6 H (2.3-3.5) g/dL Albumin/Globulin Ratio 1.0 L (1.2-2.2) Meds: Medications Generic Name Dose Route Start Last Admin Trade Name Freq PRN Reason Stop Dose Admin Heparin Sodium/Dextrose 25,000 units in 500 mls @ 625.956 mls/hr 06/05/19 15: 15 Heparin 25,000 Units In D5w 500 Ml IV TITRATE PREET Protocol 600 UNITS/KG/HR Nitroglycerin 0.4 mg 06/05/19 15:26 Nitrostat SL Q5M PRN Chest Pain Sodium Chloride 10 ml 06/05/19 15:12 Saline Flush FLUSH ASDIRECTED PRN Keep Vein Open Discontinued Medications Generic Name Dose Route Start Last Admin Trade Name Freq PRN Reason Stop Dose Admin Aspirin 324 mg 06/05/19 14:36 Aspirin PO 06/05/19 14:37 ONETIME ONE Clopidogrel Bisulfate 300 mg 06/05/19 15:12 Plavix PO 06/05/19 15:13 ONETIME ONE Fentanyl 25 mcg 06/05/19 13:17 06/05/19 13:29 Sublimaze NASBOTH 06/05/19 13:18 25 mcg ONETIME ONE Administration Heparin Sodium (Porcine) 3,100 units 06/05/19 15:12 Heparin Sodium IVPUSH 06/05/19 15:13 ONETIME ONE Departure - Departure Time of Disposition: 15:30 Disposition: DC/Tfer to Acute Hospital 02 Condition: Fair Clinical Impression: Non-STEMI (non-ST elevated myocardial infarction) - Discharge Information Referrals: Elizabeth Thorne PA [Primary Care Provider] - Forms: ED Department Discharge - My Orders Last 24 Hours: My Active Orders 06/05/19 13:16 Cardiac Monitoring [RC] .As Directed 06/05/19 13:17 EKG Documentation Completion [RC] ASDIRECTED EKG 12 Lead [EK] Stat 06/05/19 15:12 Cardiac Monitoring [RC] STAT Communication Order [RC] Per Unit Routine Communication Order [RC] Per Unit Routine INR,PT,PROTHROMBIN TIME [COAG] Stat PTT,PARTIAL THROMBOPLSTIN TIME [COAG] Stat Sodium Chloride 0.9% [Saline Flush] 10 ml FLUSH ASDIRECTED PRN Peripheral IV Insertion Adult [OM.PC] Stat 06/05/19 15:13 Peripheral IV Care [RC] . DIRECTED 06/05/19 15:15 Heparin Sodium/D5W [Heparin 25,000 Units in D5W 500 ML] 25,000 units in 500 ml IV TITRATE 06/05/19 15:26 Nitroglycerin [Nitrostat] 0.4 mg SL Q5M PRN - Assessment/Plan Last 24 Hours: My Active Orders 06/05/19 13:16 Cardiac Monitoring [RC] .As Directed 06/05/19 13:17 EKG Documentation Completion [RC] ASDIRECTED EKG 12 Lead [EK] Stat 06/05/19 15:12 Cardiac Monitoring [RC] STAT Communication Order [RC] Per Unit Routine Communication Order [RC] Per Unit Routine INR,PT,PROTHROMBIN TIME [COAG] Stat PTT,PARTIAL THROMBOPLSTIN TIME [COAG] Stat Sodium Chloride 0.9% [Saline Flush] 10 ml FLUSH ASDIRECTED PRN Peripheral IV Insertion Adult [OM.PC] Stat 06/05/19 15:13 Peripheral IV Care [RC] . DIRECTED 06/05/19 15:15 Heparin Sodium/D5W [Heparin 25,000 Units in D5W 500 ML] 25,000 units in 500 ml IV TITRATE 06/05/19 15:26 Nitroglycerin [Nitrostat] 0.4 mg SL Q5M PRN Plan: Assessment Acuity = acute Site and laterality = non-ST elevation myocardial infarction complicated patient with known history coronary artery disease as well as chronic obstructive pulmonary disease Etiology = probable underlying coronary artery disease Manifestations = acute coronary syndrome Location of injury = Home Lab values = CBC CMP unremarkable initial troponin at 1330 was 0.066 approximate 1 hour later troponin elevated 0.322 chest x-ray shows no acute process EKG does show Q waves in V1 and V2 with ST depression 1 mm in V4 Plan Called discussed case with Dr. Burk at 1520 he kindly accepted the patient in transport she'll be transported via EMS ground [facility] , she has been given aspirin, 3 mg Plavix, heparin bolus of 3100 units and a heparin drip at 600 units per hour This note was dictated using [employer] voice recognition software please call with any questions on syntax or grammar.
--- NOTE | 2019-06-05 14:26 | CRLCR ---
INDICATION: Shortness of breath. Recent thoracic injections. COMPARISON: 03/12/2019 FINDINGS: PA and lateral views of the chest were obtained. There is no sign of pneumothorax. The lungs remain clear. There is no change in moderate hyperinflation consistent with COPD. The heart remains normal in size. The mediastinum is normal in appearance. Again seen is moderate scoliosis of the thoracolumbar spine convex towards the right. The osseous structures are otherwise normal in appearance for the patient`s age. IMPRESSION: No sign of pneumothorax. No change in moderate hyperinflation consistent with COPD. Otherwise no active disease seen in the chest. Dictated by Yann Kahn MD @ Jun 05 2019 2:23PM Signed by Dr. Yann Kahn @ Jun 05 2019 2:25PM
[2019-06-05] MEDS ORDERED: Aspirin 81 MG Tab.Chew PO ONE (14:36)
[2019-06-05] MEDS ORDERED: Sodium Chloride 0.9% 10 ML Syringe FLUSH PRN (15:12)
[2019-06-05] MEDS ORDERED: Heparin Sodium 5,000 Units/ML Vial IVPUSH ONE (15:12)
[2019-06-05] MEDS ORDERED: Clopidogrel 75 MG Tab PO ONE (15:12)
[2019-06-05] MEDS ORDERED: Heparin Sodium/D5W 25,000 UNITS/500 ML BAG IV SCH (15:15)
[2019-06-05] MEDS ORDERED: Nitroglycerin 0.4 MG Tab.SL SL PRN (15:26)
[2019-06-05 16:32] VITALS: BP 140/91; PULSE 102
== END 2019-06-05 16:30 ==
LOC: JP.ED 12:49
DX: I21.4 Non-ST elevation (NSTEMI) myocardial infarction (principal); F41.9 Anxiety disorder, unspecified; F32.9 Major depressive disorder, single episode, unspecified; E03.9 Hypothyroidism, unspecified; I25.10 Atherosclerotic heart disease of native coronary artery without angina pectoris; Z91.048 Other nonmedicinal substance allergy status; Z91.018 Allergy to other foods; Z88.5 Allergy status to narcotic agent; Z79.899 Other long term (current) drug therapy
CPT/HCPCS: 36415; 71046; 80053; 84484; 85025; 85610; 85730; 93005; 96365; 99284; 99285; A9270; J1644; J3010; 20553; J3490

== ENCOUNTER 2021-04-06 08:48 | Emergency (ER) | payer MEDICARE ==
[2021-04-06] MEDS ORDERED: Sodium Chloride 0.9% 10 ML Syringe FLUSH PRN (09:26)
[2021-04-06] MEDS ORDERED: Ketorolac 30 MG/ML SDV IVPUSH ONE (09:26)
--- NOTE | 2021-04-06 09:34 | EDM.PDOC ---
ED HPI GENERAL MEDICAL PROBLEM - General Chief Complaint: Respiratory Problem Stated Complaint: FEELS LIKE SHE CANNOT BREATH AND PAIN IN R SHOULDE Time Seen by Provider: 04/06/21 09:15 Source of Information: Reports: Patient, Old Records, RN History Limitations: Reports: No Limitations - History of Present Illness INITIAL COMMENTS - FREE TEXT/NARRATIVE: 80 yo female with a pHx of scoliosis presents with pleuritic R upper back pain that has been present for about a week, but it is getting worse. No relief with her Kell. She feels SOB. No cough or fever. She denies injury to this area. She had rib X-rays in the clinic a few weeks ago. There has not been leg pain or swelling. Has a pHx of gastric bypass. Onset: Gradual Duration: Week(s): (1+), Getting Worse Location: Reports: Back Quality: Reports: Sharp, Stabbing Severity: Moderate Improves with: Reports: Other (shallow breathing) Worsens with: Reports: Movement (especially deep breathing) Context: Reports: Other (See HPI) Associated Symptoms: Reports: Shortness of Breath. 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: Other (see below) (Kell prescribed for her scoliosis) Right Shoulder Pain Score (Numeric/FACES): 8 - Related Data Allergies Allergy/AdvReac Type Severity Reaction Status Date / Time gluten Allergy Abdominal Verified 04/06/21 09:08 Pain morphine AdvReac Headache Verified 04/06/21 09:08 SPICES Allergy Abdominal Uncoded 04/06/21 09:08 Pain Home Meds: Home Meds Cholecalciferol (Vitamin D3) [Vitamin D3] 1,000 unit PO DAILY 03/24/15 [History] Cyanocobalamin (Vitamin B-12) [Cyanocobalamin Injection] 1 ml IM .[id number] 03/24/15 [History] Ergocalciferol (Vitamin D2) [Vitamin D2] 50,000 unit PO .2XWEEK 03/24/15 [History] Levothyroxine 112 mcg PO DAILY 03/24/15 [History] Multivitamin [Flintstones] 1 tab PO BID 03/24/15 [History] Multivitamin/Ferrous Gluconate [Multi-Delyn with Iron Liquid] 20 ml PO DAILY 03/24/15 [History] Omeprazole 40 mg PO DAILY PRN 03/24/15 [History] Potassium Chloride 15 ml PO DAILY 03/24/15 [History] Thiamine [Vitamin B-1] 100 mg PO DAILY 03/24/15 [History] ZOLMitriptan [Zomig ZMT] 5 mg PO ASDIRECTED PRN 03/24/15 [History] estradioL [Climara] 0.06 mg TOP WEEKLY 03/24/15 [History] Cyanocobalamin (Vitamin B-12) [Vitamin B-12] 1,000 mcg SL DAILY 03/22/17 [History] Promethazine [Phenadoz] 25 mg RECTAL Q6H PRN 03/22/17 [History] Diphenoxylate HCl/Atropine [Lomotil] 1 tab PO QID PRN 10/31/18 [History] Diclofenac Sodium [Voltaren 1% Gel] 1 applic TOP QID 11/11/20 [History] Ferrous Sulfate 7.5 ml PO DAILY 11/11/20 [History] Loperamide [Imodium] 2 mg PO QID PRN 11/11/20 [History] Magnesium 200 mg PO DAILY 11/11/20 [History] Nitroglycerin [Nitrostat] 0.4 mg SL ASDIRECTED 11/11/20 [History] Hydrocodone/Acetaminophen [Hydrocodone-Acetaminophen Soln] 15 ml PO Q6H PRN 02/16/21 [History] Past Medical History HEENT History: Reports: Cataract, Hard of Hearing, Impaired Vision, Other (See Below) Other HEENT History: tinnitus left ear, menneires disease Cardiovascular History: Reports: Afib, CAD, PA Other Cardiovascular History: PA from electrolyte imbalance Respiratory History: Reports: Other (See Below) Other Respiratory History: unknown lung problems for albuterol Pt stopped Gastrointestinal History: Reports: Celiac Disease, Chronic Diarrhea, Colon Polyp, GERD, Hemorrhoids, Hepatitis, Other (See Below) Other Gastrointestinal History: internal rectal restriction Genitourinary History: Reports: Renal Calculus [employer]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 Right knee meniscal tear. right knee pain. left knee pain. 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 Endocrine/Metabolic History: Reports: Hypothyroidism, Osteopenia, Vitamin D Deficiency, Other (See Below) Other Endocrine/Metabolic History: Isidro disease Hematologic History: Reports: Anemia, B12 Deficiency, Blood Transfusion(s), Folic Acid, Iron Deficiency Immunologic History: Reports: None Oncologic (Cancer) History: Reports: Colon, Malignant Melanoma Dermatologic History: Reports: Melanoma Other Dermatologic History: skin CA 2006 - Infectious Disease History Infectious Disease History: Reports: Chicken Pox, Measles, Mumps, Shingles - Past Surgical History Head Surgeries/Procedures: Reports: None HEENT Surgical History: Reports: Cataract Surgery, Tonsillectomy, Other (See Below) Other HEENT Surgeries/Procedures: eye lenses implants Cardiovascular Surgical History: Reports: None Respiratory Surgical History: Reports: None GI Surgical History: Reports: Appendectomy, Bariatric Procedure, Cholecystectomy, Colon, Colonoscopy, EGD, Other (See Below) Other GI Surgeries/Procedures: surgical procedure x 5 to remove excess lining of rectum, hemorrhoidectomy, panniculectomy, colon resection Female Surgical History: Reports: Breast Biopsy, Cystoscopy, Hysterectomy, Kidney stone extraction, Tubal Ligation, Other (See Below) Other Female Surgeries/Procedures: bilat breast cysts removed Endocrine Surgical History: Reports: None Neurological Surgical History: Reports: C-Spine, Other (See Below) Other Neurological Surgeries/Procedures: fusion C5-C6, Chiari I surgery plate and screws Musculoskeletal Surgical History: Reports: Carpal Tunnel Other Musculoskeletal Surgeries/Procedures:: C5-6 fusion Oncologic Surgical History: Reports: None Dermatological Surgical History: Reports: Skin Biopsy Social & Family History - Family History Family Medical History: No Pertinent Family History - Tobacco Use Tobacco Use Status *Q: Never Tobacco User - Caffeine Use Caffeine Use: Reports: Coffee Caffeine Use Comment: 1 cups per day - Recreational Drug Use Recreational Drug Use: No - Living Situation & Occupation Living situation: Reports: (Lives [address] [facility] in [facility], retired, 2 adult children, not currently involved with her children. Son lives in [place], and daughter lives in [place].) ED ROS GENERAL - Review of Systems Review Of Systems: See Below Constitutional: Denies: Fever, Chills HEENT: Reports: No Symptoms Respiratory: Reports: Shortness of Breath, Pleuritic Chest Pain. Denies: Whe ezing, Cough, Sputum, Hemoptysis Cardiovascular: Reports: No Symptoms Endocrine: Reports: No Symptoms GI/Abdominal: Reports: No Symptoms : Reports: No Symptoms Musculoskeletal: Reports: Back Pain Skin: Reports: No Symptoms Neurological: Reports: No Symptoms ED EXAM, GENERAL - Physical Exam Exam: See Below Exam Limited By: No Limitations General Appearance: Alert, WD/WN, Mild Distress, Thin Eye Exam: Bilateral Eye: Normal Inspection Ears: Normal External Exam, Normal Canal, Hearing Grossly Normal Ear Exam: Bilateral Ear: Auricle Normal, Canal Normal Nose: Normal Inspection, No Blood Throat/Mouth: Normal Inspection, Normal Lips, Normal Voice, No Airway Compromise Head: Atraumatic, Normocephalic Neck: Normal Inspection Respiratory/Chest: No Respiratory Distress, Lungs Clear, Normal Breath Sounds, No Accessory Muscle Use, Other (? BS decreased on L relative to the R). No: Chest Non-Tender (point tenderness to the) Cardiovascular: Regular Rate, Rhythm, No Edema Back Exam: Normal Inspection, Vertebral Tenderness (over mid T-spine and the ribs or intercostal muscles just to the right of the tender T-spine(roughly between shoulder blades)). No: CVA Tenderness (R), CVA Tenderness (L) Extremities: Normal Inspection, Normal Range of Motion, Non-Tender, No Pedal Edema. No: Pedal Edema, Bairon's Sign, Redness Neurological: Alert, Oriented, CN II-XII Intact, Normal Cognition, No Motor/Sensory Deficits Psychiatric: Normal Affect, Normal Mood Skin Exam: Warm, Dry, Intact, Normal Color, No Rash Course - Vital Signs Last Recorded V/S: Last Vital Signs Temp 36.3 C 04/06/21 09:06 Pulse 79 04/06/21 10:16 Resp 16 04/06/21 10:16 BP 164/83 H 04/06/21 10:16 Pulse Ox 96 04/06/21 10:16 - Orders/Labs/Meds Orders: Active Orders 24 hr Category Date Time Status Cardiac Monitoring [RC] .As Directed Care 04/06/21 09:06 Active Sodium Chloride 0.9% [Saline Flush] Med 04/06/21 09:26 Active 10 ml FLUSH ASDIRECTED PRN Saline Lock Insert [OM.PC] Routine Oth 04/06/21 09:26 Ordered Medication Orders Sodium Chloride (Sodium Chloride 0.9% 10 Ml Syringe) 10 ml FLUSH ASDIRECTED PRN PRN Reason: Keep Vein Open Last Admin: 04/06/21 09:54 Dose: 10 ml Documented by: ANNALEE Labs: Laboratory Tests 04/06/21 04/06/21 04/06/21 Range/Units 09:55 09:55 09:55 WBC 8.8 (4.5-11.0) K/uL RBC 4.89 (3.30-5.50) M/uL Hgb 15.3 H (12.0-15.0) g/dL Hct 47.8 (36.0-48.0) % MCV 98 (80-98) fL MCH 31 (27-31) pg MCHC 32 (32-36) % Plt Count 343 (150-400) K/uL D-Dimer, Quantitative 783.70 H (0.0-500.0) ng/mL Sodium 140 (140-148) mmol/L Potassium 4.5 (3.6-5.2) mmol/L Chloride 104 (100-108) mmol/L Carbon Dioxide 28 (21-32) mmol/L Anion Gap 8.2 (5.0-14.0) mmol/L BUN 16 (7-18) mg/dL Creatinine 0.9 (0.6-1.0) mg/dL Est Cr Clr Drug Dosing 45.73 mL/min Estimated GFR (MDRD) > 60 (>60) Glucose 100 (74-106) mg/dL Calcium 9.2 (8.5-10.1) mg/dL Troponin I < 0.017 (0.000-0.056) ng/mL C-Reactive Protein < 0.05 (0.0-0.3) mg/dL Meds: Medications Generic Name Dose Route Start Last Admin Trade Name Freq PRN Reason Stop Dose Admin Sodium Chloride 10 ml 04/06/21 09:26 04/06/21 09:54 Sodium Chloride 0.9% 10 Ml Syringe FLUSH 10 ml ASDIRECTED PRN Administration Keep Vein Open Discontinued Medications Generic Name Dose Route Start Last Admin Trade Name Freq PRN Reason Stop Dose Admin Ketorolac Tromethamine 15 mg 04/06/21 09:26 04/06/21 09:53 Ketorolac 30 Mg/Ml Sdv IVPUSH 04/06/21 09:27 15 mg ONETIME ONE Administration Lidocaine 700 mg 04/06/21 10:55 Lidocaine 5% 700 Mg Patch TRDERM 04/06/21 10:56 ONETIME ONE - Radiology Interpretation Free Text/Narrative:: T-spine X-rays-neg Departure - Departure Time of Disposition: 11:05 Disposition: Home, Self-Care 01 Condition: Fair Clinical Impression: Muscle strain of right upper back Qualifiers: Encounter type: initial encounter Qualified Code(s): S29.012A - Strain of muscle and tendon of back wall of thorax, initial encounter - Discharge Information *PRESCRIPTION DRUG MONITORING PROGRAM REVIEWED*: Not Applicable *COPY OF PRESCRIPTION DRUG MONITORING REPORT IN PATIENT ALISSON: Not Applicable Instructions: Thoracic Strain, [id number] Referrals: Genny Delgado DO [Primary Care Provider] - Forms: ED Department Discharge Additional Instructions: Use Lidoderm patch 12 hrs on and 12 hrs off each day as needed for pain relief. Add ibuprofen suspension 400 mg every 6 hrs for added pain relief. May also use either your hydrocodone or acetaminophen for added relief. Recheck with your provider before the weekend. Sepsis Event Note (ED) - Evaluation Sepsis Screening Result: No Definite Risk - Focused Exam Vital Signs: Vital Signs Temp Pulse Resp BP Pulse Ox 04/06/21 10:16 79 16 164/83 H 96 04/06/21 09:47 16 163/82 H 95 04/06/21 09:06 36.3 C 85 18 179/75 H 95 04/06/21 09:05 36.3 C 85 18 179/75 H 95 - My Orders Last 24 Hours: My Active Orders 04/06/21 09:06 Cardiac Monitoring [RC] .As Directed 04/06/21 09:26 Sodium Chloride 0.9% [Saline Flush] 10 ml FLUSH ASDIRECTED PRN Saline Lock Insert [OM.PC] Routine - Assessment/Plan Last 24 Hours: My Active Orders 04/06/21 09:06 Cardiac Monitoring [RC] .As Directed 04/06/21 09:26 Sodium Chloride 0.9% [Saline Flush] 10 ml FLUSH ASDIRECTED PRN Saline Lock Insert [OM.PC] Routine
[2021-04-06 10:25] VITALS: BP 164/83; PULSE 79
--- NOTE | 2021-04-06 10:29 | CRLCR ---
For Patients: As a result of the Cures Act, medical imaging exams and procedure reports are released immediately into your electronic medical record. You may view this report before your referring provider. If you have questions, please contact your health care provider. INDICATION: Back pain TECHNIQUE: Thoracic spine 3 view COMPARISON: None FINDINGS: Bones: Moderate right convex scoliosis. No subluxations. No sign of fracture or compression deformity. No suspicious bone lesion. Joints: Diffuse disc space narrowing. Soft tissues: Unremarkable. Dictated by Pietro Abebe MD @ 04/06/2021 10:27:[address] Pietro Abebe @ Apr 06 2021 10:27AM
[2021-04-06] MEDS ORDERED: Lidocaine 5% 700 MG Patch TRDERM ONE (10:55)
== END 2021-04-06 11:23 | disposition home or self-care (01) ==
LOC: JP.ED 08:48
DX: S29.012A Strain of muscle and tendon of back wall of thorax, initial encounter (principal); I48.91 Unspecified atrial fibrillation; I25.10 Atherosclerotic heart disease of native coronary artery without angina pectoris; I25.2 Old myocardial infarction; K21.9 Gastro-esophageal reflux disease without esophagitis; E03.9 Hypothyroidism, unspecified; D64.9 Anemia, unspecified; Z98.84 Bariatric surgery status; Z91.018 Allergy to other foods; Z88.5 Allergy status to narcotic agent; Z79.899 Other long term (current) drug therapy; X58.XXXA Exposure to other specified factors, initial encounter
CPT/HCPCS: 36415; 72070; 80048; 84484; 85027; 85379; 86140; 96374; 99283; A9270; J1885

== ENCOUNTER 2024-04-15 09:12 | Emergency (ER) | payer MEDICARE ==
[2024-04-15 10:46] LABS: BASOPHILS ABSOLUTE AUTO 0.03 K/uL (0.00-0.10); BASOPHILS PERCENT AUTO 0.4 % (0.1-1.3); EOSINOPHILS ABSOLUTE AUTO 0.03 K/uL (0.00-0.40); EOSINOPHILS PERCENT AUTO 0.4 % (0.0-5.4); HEMATOCRIT 43.3 % (34.3-46.0); HEMOGLOBIN 14.4 g/dL (11.2-15.5); IMMATURE GRAN PERCENT AUTO 0.3 % (0.0-0.7); LYMPHOCYTES ABSOLUTE AUTO 2.17 K/uL (0.8-3.3); LYMPHOCYTES PERCENT AUTO 29.7 % (11.4-47.7); MEAN CORPUSCULAR HEMOGLOBIN 32.4 pg (31.6-35.5); MEAN CORPUSCULAR HGB CONC 33.3 g/dL (31.6-35.5); MEAN CORPUSCULAR VOLUME 97.5 fL (81.4-99.0); MONOCYTES PERCENT AUTO 12.3 % (3.3-12.6); NEUTROPHILS ABSOLUTE AUTO 4.15 K/uL (1.0-7.6); NEUTROPHILS PERCENT AUTO 56.9 % (40.0-78.1); PLATELET COUNT,PLT 283 K/uL (130-375); RED BLOOD CELL COUNT 4.44 M/uL (3.77-5.24); WHITE BLOOD CELL COUNT,WBC 7.3 K/uL (3.2-11.0)
[2024-04-15] MEDS: Sodium Chloride 0.9% 10 ML Syringe FLUSH PRN (11:02)
[2024-04-15] MEDS: Lactated Ringers 1,000 ML IV ONE (11:02)
[2024-04-15 11:06] LABS: A/G RATIO 0.8 (1.2-2.2); ALANINE AMINOTRANSFERASE,ALT 49 U/L (12-78); ALBUMIN 2.9 g/dL (3.4-5.0); ALKALINE PHOSPHATASE 89 U/L (46-116); ANION GAP 12.8 mmol/L (5.0-14.0); ASPARTATE AMNIOTRANSFERASE,AST 34 U/L (15-37); BILIRUBIN TOTAL 0.2 mg/dL (0.2-1.0); BLOOD UREA NITROGEN,BUN 39 mg/dL (7-18); CARBON DIOXIDE,CO2 21 mmol/L (21-32); CHLORIDE,CL 108 mmol/L (100-108); CREATININE 1.3 mg/dL (0.6-1.0); EST CRCL DRUG DOSING (CG) 26.91 mL/min; ESTIMATED GFR 41 mL/min (>60); GLUCOSE RANDOM 94 mg/dL (74-106); POTASSIUM,K 4.1 mmol/L (3.6-5.2); PROTEIN TOTAL,TP 6.7 g/dL (6.4-8.2); SODIUM,NA 142 mmol/L (140-148)
[2024-04-15 11:09] LABS: IMMATURE GRAN ABSOLUTE AUTO 0.02 K/uL (0.00-0.23)
[2024-04-15 13:45] LABS: STREP A BY PCR NOT DETECTED (NOT DETECT)
[2024-04-15 13:56] LABS: CORONAVIRUS COVID-19 NAA NEGATIVE (NEGATIVE); INFLUENZA A NAA NEGATIVE (NEGATIVE); INFLUENZA B NAA NEGATIVE (NEGATIVE); RESPIRATORY SYNCYTIAL VIR NAA NEGATIVE (NEGATIVE)
[2024-04-15 14:14] VITALS: BP 124/65; PULSE 86
== END 2024-04-15 14:25 | disposition home or self-care (01) ==
LOC: JP.ED 09:12
DX: J02.9 Acute pharyngitis, unspecified (principal); I25.10 Atherosclerotic heart disease of native coronary artery without angina pectoris; I25.2 Old myocardial infarction; K21.9 Gastro-esophageal reflux disease without esophagitis; E03.9 Hypothyroidism, unspecified; Z86.16 Personal history of COVID-19; Z87.891 Personal history of nicotine dependence; Z90.49 Acquired absence of other specified parts of digestive tract; Z90.710 Acquired absence of both cervix and uterus; Z79.899 Other long term (current) drug therapy; Z79.890 Hormone replacement therapy; Z91.018 Allergy to other foods; Z88.5 Allergy status to narcotic agent; Z88.8 Allergy status to other drugs, medicaments and biological substances
CPT/HCPCS: 0241U; 36415; 80053; 83605; 85025; 87046; 87427; 87493; 87651; 89055; 99284; J3490; J7120

== ENCOUNTER 2025-03-20 06:31 | Day surgery (SDC) | payer MEDICARE ==
[2025-03-20] MEDS ORDERED: fentaNYL 100 MCG/2 ML SDV ONE (06:59)
[2025-03-20] MEDS ORDERED: Propofol 200 MG/20 ML SDV ONE ×2 (06:59→08:01)
[2025-03-20] MEDS: Lactated Ringers 1,000 ML IV SCH (07:34)
[2025-03-20 09:48] VITALS: BP 153/94; PULSE 69
[2025-03-20] MEDS: Lidocaine 1% with EPINEPHrine 1:100,000 50 ML MDV ONE (10:48)
== END 2025-03-20 09:56 | disposition home or self-care (01) ==
LOC: JP.SDS 06:31
PROVIDERS: ATTEND Surgery
DX: E46 Unspecified protein-calorie malnutrition (principal); E03.9 Hypothyroidism, unspecified; N18.9 Chronic kidney disease, unspecified; Z87.891 Personal history of nicotine dependence
CPT/HCPCS: 36561; 36590; 71045; 76000; 87070; 87075; 87077; 87186; 87205; C1788; C1894; J0665; J0690; J1642; J2704; J3010; J7120; 00532-QZ